=== PATIENT | male | born 1990 | race Caucasian/White ===

== ENCOUNTER 2020-08-26 17:52 | Outpatient (REF) | payer MEDICAID, SELFPAY | END 2020-08-26 17:53 | disposition home or self-care (01) | LOC: HO.LAB 17:52 | PROVIDERS: Visit Provider Internal Medicine | DX: Z20.828 Contact with and (suspected) exposure to other viral communicable diseases (principal) | CPT/HCPCS: U0003 ==

== ENCOUNTER 2020-11-25 11:24 | Outpatient (REF) | payer MEDICAID, SELFPAY | END 2020-11-25 11:25 | disposition home or self-care (01) | LOC: HO.LAB 11:24 | PROVIDERS: Visit Provider Internal Medicine | DX: Z20.822 Contact with and (suspected) exposure to COVID-19 (principal) | CPT/HCPCS: 36415; C9803; U0003; U0005 ==

== ENCOUNTER 2021-03-05 10:29 | Emergency (ER) | payer MEDICAID, SELFPAY ==
--- NOTE | ~2021-03-05 | US_ITS ---
EXAMINATION: US VENOUS ULTRASOUND WITH DOPPLER LOWER EXTREMITY, RIGHT CLINICAL INFORMATION: Pain COMPARISON: None TECHNIQUE: Ultrasound of the deep veins is performed from the hip to the calf with compression sonography and color and pulse Doppler assessment. Spectral analysis with color-flow imaging is performed. FINDINGS: There is normal venous compression and respiratory variation and augmented flow. The visualized common femoral vein, superficial femoral vein, profunda femoral vein, popliteal vein, and the trifurcation region shows no evidence of deep venous thrombosis. There is no Morel's cyst. There is edema in the proximal calf near the wound and question small 1 cm complex fluid collection. There is right inguinal lymphadenopathy. US/US venous duplex LE RT IMPRESSION: No DVT demonstrated in the right lower extremity. Edema in the calf near the patient's wound and question small 1 cm complex fluid collection.
--- NOTE | ~2021-03-05 | XR_ITS ---
EXAMINATION: RIGHT TIBIA AND FIBULA AND RIGHT FOOT CLINICAL INFORMATION: Leg drained abscess. Question osteomyelitis. COMPARISON: None TECHNIQUE: Right tibia and fibula 2 views. Right foot 3 views. FINDINGS: RIGHT TIBIA AND FIBULA: There is no visible bony abnormality. No periosteal thickening and elevation. No soft tissue ulceration or gas seen. RIGHT FOOT: There is no visible acute fracture, dislocation or subluxation seen. No bony erosive changes. No periosteal thickening. No soft tissue gas visualized. The ankle mortise and subtalar joints are normal. XR/XR foot RT 2V IMPRESSION: Unremarkable right tibia and fibula. Unremarkable right foot exam. There is no bony erosive changes or periosteal thickening to suspect osteomyelitis.
--- NOTE | ~2021-03-05 | XR_ITS ---
EXAMINATION: RIGHT TIBIA AND FIBULA AND RIGHT FOOT CLINICAL INFORMATION: Leg drained abscess. Question osteomyelitis. COMPARISON: None TECHNIQUE: Right tibia and fibula 2 views. Right foot 3 views. FINDINGS: RIGHT TIBIA AND FIBULA: There is no visible bony abnormality. No periosteal thickening and elevation. No soft tissue ulceration or gas seen. RIGHT FOOT: There is no visible acute fracture, dislocation or subluxation seen. No bony erosive changes. No periosteal thickening. No soft tissue gas visualized. The ankle mortise and subtalar joints are normal. XR/XR tibia fibula RT 2V IMPRESSION: Unremarkable right tibia and fibula. Unremarkable right foot exam. There is no bony erosive changes or periosteal thickening to suspect osteomyelitis.
[2021-03-05 12:03] VITALS: BP 125/70; PULSE 89; RESP 16; TEMP 36.7; O2SAT 98; BMI 20.8
[2021-03-05 14:31] VITALS: BP 127/84; PULSE 197; RESP 16; O2SAT 86
--- NOTE | 2021-03-05 14:37 | ED_ITS ---
HPI - Wound/Laceration General Chief Complaint: Wound/Laceration Stated Complaint: rt leg pain Time Seen by Provider: 03/05/21 13:19 Source: patient Mode of arrival: ambulatory Limitations: no limitations History of Present Illness HPI narrative: Patient to be evaluated right leg wound. Patient states he had placed a needle into right leg which cause abscess and yesterday abscess popped open and drain on his own. Patient came to the ED to be evaluated. Patient states he has small hole on bottom of right foot and thinks bugs are coming out of it. Related Data Previous Rx's Medication Instructions Recorded cephalexin 500 mg PO QID #28 cap 03/05/21 doxycycline hyclate 100 mg PO BID #14 cap 03/05/21 Allergies Allergy/AdvReac Type Severity Reaction Status Date / Time No Known Allergies Allergy Unverified 06/13/20 18:12 [No Known Allergies*] Review of Systems Review of Systems: Yes all other systems are reviewed and are negative Constitutional: Constitutional: Reports as per HPI and Reports no additional constitutional complaints Eyes: Eyes: Reports as per HPI and Reports no additional eye complaints ENT: Reports system reviewed and no additional complaints, except as documented and Reports as per HPI Cardiovascular: Cardiovascular: Reports as per HPI and Reports no additional cardiovascular complaints Respiratory: Respiratory: Reports as per HPI and Reports no additional respiratory complaints Gastrointestinal: Gastrointestinal: Reports as per HPI and Reports no additional gastrointestinal complaints Genitourinary: Genitourinary: Reports no additional male genitourinary complaints and Reports as per HPI Musculoskeletal: Musculoskeletal: Reports no additional musculoskeletal complaints and Reports as per HPI Comments: Right leg wound Neurologic: Reports system reviewed and no additional complaints, except as documented and Reports as per HPI Psychiatric: Psychiatric: Reports no additional psychiatric complaints and Reports as per HPI [facility] Past Medical History Medical History (Updated 03/05/21 @ 17:33 by KRISTEL Amador) No known health problems Surgical History (Updated 03/05/21 @ 12:10 by Jordyn Maciel) No history of previous surgery Social History Social History Advance Directives: Yes Advance Directives Information Provided: No Advance Directives on File: No Physical Exam Vital Signs: Vital Signs: Last Vital Signs Temp 99.3 F 03/05/21 16:43 Pulse 97 03/05/21 18:00 Resp 12 03/05/21 18:00 BP 141/90 H 03/05/21 18:00 Pulse Ox 96 03/05/21 18:00 Body Mass Index 20.8 Const: General: cooperative, healthy appearing, comfortable, no acute distre ss, well developed, alert, awake and Physically active Orientation/consciousness: patient oriented x3 HENMT: Head: Yes normal to inspection, Yes No palpable skull fracture present, Yes normocephalic, Yes atraumatic and No abrasion Eyes: General: appearance normal, both eyes and all related structures Neck: Neck: Yes normal visual inspection, Yes full ROM, Yes no lymphadenopathy, Yes no meningeal signs, Yes trachea midline, Yes supple and No tender Chest: Chest palpation & inspection: normal inspection of the chest and normal palpation of entire chest wall Resp: Effort & Inspection: normal respiratory effort and able to speak in complete sentences Cardio: Jugular venous distension: no JVD Heart sounds: S1 normal heart sound present and S2 normal heart sound present GI: Inspection: Yes normal to inspection and No abdominal wall ecchymosis Palpation (GI): Soft to palpation, not firm, nontender and no guarding : General: No CVA tenderness Back/Spine/Pelvis: Back: no CVA tenderness, No CVA tenderness and No back tenderness Skin: General skin exam: no rashes or lesions noted and elasticity normal Neuro: General: patient oriented x3, gait normal, no meningeal signs and CN's II-XI intact bilaterally Extrem: Other: Bottom of right foot positive for only 2/3 with small abrasion negative for bugs are maggots. Right leg area of erythema with opening is no active draining pus. Patient states he puts all the pus out yesterday. Psych: Appearance: grossly normal, well kempt and not disheveled Course Course Course Narrative: Abscess around the drain. Right foot positive for only ab rasion and negative for maggots coming out. No labs indicated. Vital signs stable. Will just do ultrasound and x-ray to evaluate for blood clot, foreign body, osteomyelitis. Reevaluation(s) Reevaluation #1: Ultrasound negative for blood clots. X-ray negative for osteomyelitis. Abscess already drained. Patient is safe for discharge. Patient discharged with antibiotics Time: 17:31 MDM - Wound/Laceration MDM Narrative Medical decision making narrative: Abscess Discharge Plan Discharge Clinical Impression: Abscess Patient Disposition: Home, Self-Care Instructions: Abscess (ED) Additional Instructions: Return to the ED immediately for leg swelling, increased redness, foul odor, severe pus drainage, fever, chills, chest pain, shortness of breath, or any other concerning symptoms. Please follow-up with the PCP. Prescriptions: New cephalexin 500 mg capsule 500 mg PO QID Qty: 28 RF: 0 doxycycline hyclate 100 mg capsule 100 mg PO BID Qty: 14 RF: 0 Interventions: ED Discharge Assessment Last Done: 03/05/21 18:12 Discharge Date/Time: 03/05/21 18:16 Print Language: Mohawk
[2021-03-05 14:57] VITALS: BP 123/76; PULSE 85; RESP 18; O2SAT 100
[2021-03-05 16:43] VITALS: BP 127/66; PULSE 74; RESP 16; TEMP 37.4; O2SAT 99
[2021-03-05 18:00] VITALS: BP 141/90; PULSE 97; RESP 12; O2SAT 96
== END 2021-03-05 18:16 | disposition home or self-care (01) ==
PROVIDERS: Emergency Provider Emergency Medicine
DX: L02.611 Cutaneous abscess of right foot (principal); M79.604 Pain in right leg
CPT/HCPCS: 73590; 73620; 93971; 99284

== ENCOUNTER 2022-02-23 23:38 | Emergency (ER) | payer MEDICAID, SELFPAY ==
[2022-02-23 23:50] VITALS: BP 114/65; BP 122/74; PULSE 77; RESP 14; TEMP 36.8; O2SAT 96; O2SAT 99; BMI 23.0
--- NOTE | 2022-02-24 00:12 | ED.GENADULT ---
HPI - General Adult General Chief complaint: ETOH/Substance Use Stated complaint: etoh Time Seen by Provider: 02/24/22 00:10 Source: patient and EMS Mode of arrival: EMS History of Present Illness HPI narrative: 31-year-old male with history of polysubstance use and used intranasal heroin this evening and then became paranoid and showed up at the police station stating that the heroin ?was laced? and police Department called an ambulance for the patient. Patient is groggy, and is asking for something to drink but otherwise denies any shortness of breath, chest pain/palpitations. Related Data Previous Rx's Medication Instructions Recorded cephalexin 500 mg capsule 500 mg PO QID #28 cap 03/05/21 doxycycline hyclate 100 mg capsule 100 mg PO BID #14 cap 03/05/21 Allergies Allergy/AdvReac Type Severity Reaction Status Date / Time No Known Allergies Allergy Unverified 06/13/20 18:12 [No Known Allergies*] Review of Systems Review of Systems: Pertinent positives and negatives as stated in HPI 10 point review of systems is otherwise negative. PMFSH Past Medical History Source: nursing notes reviewed Medical History No known health problems Surgical History No history of previous surgery Social History Social History Advance Directives: No Advance Directives Information Provided: Yes Physical Exam ED Vital Signs: Vital Signs - 24 hr 02/23/22 23:50 02/24/22 03:06 Temperature 98.3 F Pulse Rate 77 Respiratory Rate 14 18 Blood Pressure 114/65 Pulse Oximetry 99 95 BMI result Body Mass Index 23.0 VITAL SIGNS: Reviewed. GENERAL: Well developed, well nourished, in no acute distress. HEAD: Normocephalic/atraumatic EYES: PERRLA, EOMI EARS: Ext canals without abnormality OROPHARYNX: no oral lesions noted, posterior pharynx clear LUNGS: Normal breath sounds. No adventitious sounds or accessory muscle use. SpO2<99> CARDIOVASCULAR: Regular rate and rhythm without noted murmurs ABDOMEN: Soft, non-tender, non-distended with bowel sounds. MUSCULOSKELETAL: No tenderness, deformities, or effusions noted on gross inspection EXTREMITIES: No cyanosis, clubbing or edema. SKIN: Inspection of the skin reveals no rashes, ulcerations, jaundice, pallor, or petechiae. NEUROLOGIC: Groggy but arousable and oriented x 3. Strength and sensation to light touch were grossly intact x 4. Course Course Course Narrative: 31-year-old male with history and clinical presentation ongoing polysubstance use and is brought in by EMS after having used intranasal heroin. He is currently drowsy but otherwise hemodynamically stable. Review of all investigations without acute findings other than obvious positivity on urine toxicology, we did end up giving 4 mg of Narcan with good results, patient is noted to have mild hypokalemia and will receive 60 mEq of potassium chloride prior to discharge. Patient was offered detox, but declines at this time. Reevaluation(s) Reevaluation #1: Patient placed in physician observation because the patient needed more time to sober up. At the time observation was started the patient's vital signs were stable, patient is drowsy but arousable and oriented but slightly agitated, neuro: Nonfocal, CV RRR, lungs clear Time: 03:52 Medical Decision Making Lab Data Result diagrams: 02/24/22 03:01 02/24/22 03:01 Labs: Lab Results 02/24/22 02/24/22 02/24/22 Range/Units 03:01 03:01 03:01 WBC 6.2 (4.8-10.8) X10*3/uL RBC 4.75 (4.60-5.80) X10*6/uL Hgb 13.3 L (14.0-18.0) g/dl Hct 37.8 L (42.0-52.0) % MCV 79.6 L (80.0-98.0) fL MCH 28.0 (27.0-33.0) pg MCHC 35.2 (31.0-36.0) g/dl RDW 12.4 (11.0-16.0) % Plt Count 229 (160-400) X10*3/uL MPV 10.0 (9.4-12.4) fL Immature Gran % (Auto) 0.2 (0.0-0.4) % Neut % (Auto) 60.4 (45-73) % Lymph % (Auto) 27.1 (20-40) % [place] % (Auto) 11.5 H (2-11) % Eos % (Auto) 0.6 (0-4) % Baso % (Auto) 0.2 (0-2) % Lymph # (Auto) 1.7 (1.2-4.9) X10*3/uL [place] # (Auto) 0.7 (0.1-1.2) X10*3/uL Eos # (Auto) 0.0 (0.0-0.4) X10*3/uL Baso # (Auto) 0.0 (0.0-0.2) X10*3/uL Abs Immat Gran (auto) 0.01 (0.00-0.03) X10*3/uL Absolute Neuts (auto) 3.7 (2.0-8.3) x10*3/uL Absolute Nucleated RBC 0.000 (0.0-0.012) X10*3/uL Nucleated RBC % (auto) 0.0 (0.0-0.2) /100WBC Sodium 141 (135-145) mmol/L Potassium 3.0 L (3.3-5.1) mmol/L Chloride 106 (96-108) mmol/L Carbon Dioxide 25 (22-29) mmol/L Anion Gap 13 (12-20) BUN 11 (9-16) mg/dL Creatinine 0.76 (0.5-1.4) mg/dL Estim Creat Clear Calc 150.4 Estimated GFR > 60 Random Glucose 113 (60-115) mg/dL Calcium 9.5 (8.4-10.2) mg/dL Total Bilirubin 1.1 H (0.0-1.0) mg/dL AST 37 (5-37) U/L ALT 53 H (0-40) U/L Alkaline Phosphatase 101 (39-117) U/L Total Protein 7.3 (6.5-8.0) g/dL Albumin 4.1 (3.5-5.0) g/dL Urine Opiates Screen (Not Detect) Urine Fentanyl Screen (Not Detect) Ur Barbiturates Screen (Not Detect) Ur Phencyclidine Scrn (Not Detect) Ur Amphetamines Screen (Not Detect) U Benzodiazepines Scrn (Not Detect) Urine Cocaine Screen (Not Detect) U Marijuana (THC) Screen (Not Detect) Ethyl Alcohol < 10 mg/dL 02/24/22 Range/Units 03:01 WBC (4.8-10.8) X10*3/uL RBC (4.60-5.80) X10*6/uL Hgb (14.0-18.0) g/dl Hct (42.0-52.0) % MCV (80.0-98.0) fL MCH (27.0-33.0) pg MCHC (31.0-36.0) g/dl RDW (11.0-16.0) % Plt Count (160-400) X10*3/uL MPV (9.4-12.4) fL Immature Gran % (Auto) (0.0-0.4) % Neut % (Auto) (45-73) % Lymph % (Auto) (20-40) % [place] % (Auto) (2-11) % Eos % (Auto) (0-4) % Baso % (Auto) (0-2) % Lymph # (Auto) (1.2-4.9) X10*3/uL [place] # (Auto) (0.1-1.2) X10*3/uL Eos # (Auto) (0.0-0.4) X10*3/uL Baso # (Auto) (0.0-0.2) X10*3/uL Abs Immat Gran (auto) (0.00-0.03) X10*3/uL Absolute Neuts (auto) (2.0-8.3) x10*3/uL Absolute Nucleated RBC (0.0-0.012) X10*3/uL Nucleated RBC % (auto) (0.0-0.2) /100WBC Sodium (135-145) mmol/L Potassium (3.3-5.1) mmol/L Chloride (96-108) mmol/L Carbon Dioxide (22-29) mmol/L Anion Gap (12-20) BUN (9-16) mg/dL Creatinine (0.5-1.4) mg/dL Estim Creat Clear Calc Estimated GFR Random Glucose (60-115) mg/dL Calcium (8.4-10.2) mg/dL Total Bilirubin (0.0-1.0) mg/dL AST (5-37) U/L ALT (0-40) U/L Alkaline Phosphatase (39-117) U/L Total Protein (6.5-8.0) g/dL Albumin (3.5-5.0) g/dL Urine Opiates Screen POSITIVE H (Not Detect) Urine Fentanyl Screen POSITIVE H (Not Detect) Ur Barbiturates Screen Not Detected (Not Detect) Ur Phencyclidine Scrn Not Detected (Not Detect) Ur Amphetamines Screen Not Detected (Not Detect) U Benzodiazepines Scrn Not Detected (Not Detect) Urine Cocaine Screen POSITIVE H (Not Detect) U Marijuana (THC) Screen Not Detected (Not Detect) Ethyl Alcohol mg/dL Discharge Plan Discharge Clinical Impression: Polysubstance dependence including opioid drug with daily use Patient Disposition: Still a Patient Prescriptions: No Action cephalexin 500 mg capsule 500 mg PO QID Qty: 28 0RF doxycycline hyclate 100 mg capsule 100 mg PO BID Qty: 14 0RF
[2022-02-24] MEDS: Naloxone HCl Nasal 4 MG SPRAY NOSTRILALT (01:26)
--- NOTE | 2022-02-24 01:27 | PC.NURSE ---
Narcan administered per request Dr. umana. Narcan is not able to be scanned into MAR. tie maker aware.
[2022-02-24 03:06] VITALS: RESP 18; O2SAT 95
[2022-02-24 03:07] LABS: MANUAL DIFF FLAG NO
[2022-02-24 03:08] LABS: Basophils Percent Auto 0.2 % (0-2); Eosinophils Percent Auto 0.6 % (0-4); Hematocrit 37.8 % (42.0-52.0); Hemoglobin 13.3 g/dl (14.0-18.0); Imm Gran Abs Auto 0.01 X10*3/uL (0.00-0.03); Imm Gran Pct Auto 0.2 % (0.0-0.4); Lymphocytes Absolute Auto 1.7 X10*3/uL (1.2-4.9); Lymphocytes Percent Auto 27.1 % (20-40); Mean Corpuscular HGB Conc 35.2 g/dl (31.0-36.0); Mean Corpuscular Volume 79.6 fL (80.0-98.0); Monocytes Absolute Auto 0.7 X10*3/uL (0.1-1.2); Monocytes Percent Auto 11.5 % (2-11); Neutrophils Absolute Auto 3.7 x10*3/uL (2.0-8.3); Neutrophils Percent Auto 60.4 % (45-73); Platelet Count 229 X10*3/uL (160-400); Red Blood Count 4.75 X10*6/uL (4.60-5.80); Red Cell Distribution Width 12.4 % (11.0-16.0); White Blood Count 6.2 X10*3/uL (4.8-10.8)
[2022-02-24 03:27] LABS: Ethanol < 10 mg/dL
[2022-02-24 03:28] LABS: Amphetamine Screen Urine Not Detected (Not Detect); Barbiturates, Urine Not Detected (Not Detect); Benzodiazepines Screen Urine Not Detected (Not Detect); Cannabinoid Screen Urine Not Detected (Not Detect); Cocaine Screen Urine POSITIVE (Not Detect); Fentanyl, urine POSITIVE (Not Detect); Opiate Screen Urine POSITIVE (Not Detect); Phencyclidine Screen Urine Not Detected (Not Detect)
[2022-02-24 03:29] LABS: Alanine Aminotransferase 53 U/L (0-40); Albumin Level 4.1 g/dL (3.5-5.0); Alkaline Phosphatase 101 U/L (39-117); Anion Gap 13 (12-20); Aspartate Amino Transferase 37 U/L (5-37); Bilirubin Total 1.1 mg/dL (0.0-1.0); Blood Urea Nitrogen 11 mg/dL (9-16); Calcium 9.5 mg/dL (8.4-10.2); Carbon Dioxide 25 mmol/L (22-29); Chloride 106 mmol/L (96-108); Creatinine Clr Calc Pharmacy 150.4; Estimated Glomerular Filt Rate > 60; Glucose Random 113 mg/dL (60-115); Sodium 141 mmol/L (135-145); Total Protein 7.3 g/dL (6.5-8.0)
[2022-02-24 04:13] VITALS: RESP 18; O2SAT 96
--- NOTE | 2022-02-24 07:50 | PC.NURSE ---
pt continuos on sleeping, respirations even and unlabored.
[2022-02-24 08:52] VITALS: BP 103/51; PULSE 50; RESP 14; O2SAT 97
--- NOTE | 2022-02-24 10:03 | PC.NURSE ---
attempted to wake the pt, pt does wake up briefly and will mumble few answers, did say he was not having any pain then right back to sleep
[2022-02-24 11:36] VITALS: BP 115/65; PULSE 70; RESP 18; O2SAT 97
--- NOTE | 2022-02-24 11:36 | PC.NURSE ---
Addendum entered by Lucero Joiner 02/24/22 11:39: pt given the suboxone clinic card and instructed to go to the walk in clinic Original Note: pt finally awake, pt states that he feels like he is starting to withdraw from heroin, that he feels jittery no visible signs of withdraw at this time, vs stable, no vomiting no tremors or perspirations
[2022-02-24] MEDS: Potassium Chloride ER 20 MEQ TAB.ER.PRT 60 MEQ PO (11:43)
[2022-02-24] MEDS: Naloxone HCl Nasal TAKE HOME 4 MG SPRAY NOSTRILALT (11:44)
== END 2022-02-24 11:47 | disposition home or self-care (01) ==
PROVIDERS: Emergency Provider Student in an Organized Health Care Education/Training Program
DX: F11.23 Opioid dependence with withdrawal (principal); R40.2410 Glasgow coma scale score 13-15, unspecified time; Z79.899 Other long term (current) drug therapy
CPT/HCPCS: 36415; 51798; 80053; 80307; 82077; 85025; 99284

== ENCOUNTER 2022-05-09 01:00 | Inpatient (IN) | payer MEDICAID, SELFPAY ==
[2022-05-09] VITALS (12 sets, daily range): BP systolic 104–129; BP diastolic 50–83; PULSE 64–110; RESP 15–36; TEMP 36.8–39.1; O2SAT 95–99; BMI 21.5
--- NOTE | ~2022-05-09 | XR_ITS ---
EXAMINATION: XR CHEST CLINICAL INFORMATION: Abnormal breath sounds right base. Pneumonia follow-up COMPARISON: Prior chest radiograph 05/09/2022 TECHNIQUE: Frontal view of the chest was obtained. FINDINGS: Right basilar infiltrate and effusion stable. Left lung remains clear. Heart size borderline with normal caliber pulmonary vessels. Left-sided IJ line stable in position. XR/XR chest 1V IMPRESSION: No significant change.
--- NOTE | ~2022-05-09 | CT_ITS ---
PROCEDURE: CT GUIDED INSERTION, PLEURAL TUNNEL CATHETER CLINICAL INFORMATION: Chest tube placement. COMPARISON: None TECHNIQUE: Following explaining CT fluoroscopy-guided right thoracentesis and if needed a chest tube catheter placement procedure, benefits and risks, a written consent obtained for the procedure and conscious sedation. Patient was placed in right lateral decubitus view on the CT table and preliminary CT imaging was obtained. Markers were placed along the right posterior chest along the right lower hemithorax and repeat CT imaging was obtained. An optimal site was selected and marked. The area was cleaned and draped in usual sterile manner with 2% chlorhexidine solution. 1% lidocaine was administered at puncture site. Through a small skin incision a 5 [place] Yueh catheter was advanced into the right pleural space. After observing thin, nonpurulent, yellowish fluid decision to insert a catheter was made. A thin 0.035 J-wire was inserted through the 5 [place] Yueh catheter following removal of the stylet. Yueh catheter was removed and an 8.5 [place] APD catheter with a stiffener was advanced over the guidewire and placed in the right pleural effusion. Images were obtained confirming position of catheter. The stiffener and the guidewire was removed and pigtail was formed by pulling the thread. The catheter was then attached to a suction bottle. Only 20 mL fluid was aspirated. The catheter was subsequently connected to waterseal chamber which was connected to -20 cm of wall suction. The catheter was anchored to the skin with sterile dressing. Conscious sedation was administered for 27 minutes and patient was monitored by the IR nurse and IR radiologist. This CT examination was performed using dose optimization techniques as appropriate, variously including the following: *Automated exposure control *Adjustment of mA and/or kV according to patient size (this includes techniques or standardized protocols for targeted exams where dose is matched to indication/reason for exam; i.e. extremities or head) *Use of iterative reconstruction technique DLP: 275 mGy-cm FINDINGS: On previous CT imaging there is a loculated right pleural effusion. Approximately 20 mL of fluid was collected and sent to lab as requested. 8.5 [place] APD catheter was inserted and connected to waterseal chamber which was then connected to -20 cm of wall suction. CT/CT chest tube placement IMPRESSION: Successful CT fluoroscopy-guided right chest catheter insertion. Results were called by phone to Dr. Cosme and made aware of this situation and that the patient may need TPA. Also thoracic surgical consult will be required with the bigger chest tube for better chest drainage and if required decortication.
--- NOTE | ~2022-05-09 | CT_ITS ---
EXAMINATION: CT CHEST WITHOUT CONTRAST CLINICAL INFORMATION: Loculated right pleural effusion post tPA COMPARISON: Previous chest x-ray most recent from yesterday and chest CT 05/12/2022 TECHNIQUE: Multidetector volumetric CT imaging of the chest was done. Axial MIP volume rendering provided. Sagittal and coronal reformatted images were obtained. This CT examination was performed using dose optimization techniques as appropriate, variously including the following: *Automated exposure control *Adjustment of mA and/or kV according to patient size (this includes techniques or standardized protocols for targeted exams where dose is matched to indication/reason for exam; i.e. extremities or head) *Use of iterative reconstruction technique DLP: 200 mGy-cm FINDINGS: WORKGROUP LEADER: Right base chest tube LUNGS: There is residual airspace disease in the right lower lobe with air bronchograms probably representing pneumonia. MEDIASTINUM: There is shotty mediastinal lymphadenopathy that is stable. The heart is upper normal in size. No pericardial effusion. Left jugular central line with tip projecting over the SVC. PLEURA: There is a interval decrease in size in the now small loculated right pleural effusion. There is a small focal collection adjacent to the medial right middle lobe measuring 1 x 2 cm there is decreased in size from previous exam. There is a new pigtail chest tube in the posterior right costophrenic angle. There is a small amount of residual fluid and air or a small hydropneumothorax suggestive of a partially trapped right lower lobe. There is no left pleural effusion. AXILLA: Shotty bilateral axillary lymphadenopathy. No chest wall mass. UPPER ABDOMEN: Not completely imaged but question of hepatosplenomegaly. OSSEOUS STRUCTURES: Unremarkable. CT/CT chest wo con IMPRESSION: Interval decrease in the now small right loculated pleural effusion. Pigtail chest tube in the right posterior costophrenic sulcus. Small amount of residual fluid and air in this region or hydropneumothorax suggestive of a partially trapped right lower lobe. Airspace disease in the right lower lobes probably representing pneumonia. Fleischner guidelines were followed.
--- NOTE | ~2022-05-09 | XR_ITS ---
EXAMINATION: XR CHEST CLINICAL INFORMATION: Right pleural effusion COMPARISON: 05/18/2022 TECHNIQUE: Frontal view of the chest was obtained. FINDINGS: Left IJ central line tip lies in the region of the distal SVC. Redemonstrated right basilar pigtail catheter. Redemonstrated region of right basilar opacity and small pleural effusion, similar to prior. Associated pneumothorax component at the right base is not as well demonstrated as on recent CT. Mild streaky left basilar opacity is also noted suggesting mild atelectasis. The cardiomediastinal silhouette is stable. No acute osseous findings are seen. XR/XR chest 1V IMPRESSION: Persistent right basilar opacity and small pleural effusion, similar to prior. Pneumothorax component at the right base is not as well demonstrated as on recent CT.
--- NOTE | ~2022-05-09 | XR_ITS ---
EXAMINATION: XR CHEST CLINICAL INFORMATION: Follow-up right pleural effusion COMPARISON: 05/16/2022 TECHNIQUE: Frontal view of the chest was obtained. FINDINGS: There is left internal jugular central venous catheter with the tip over the cardiac atrial junction unchanged in position. There is pigtail catheter seen over the right flank. Cardiomediastinal silhouette is mildly prominent. Atelectasis at the right lung base. There is no interval change XR/XR chest 1V IMPRESSION: No interval change
--- NOTE | ~2022-05-09 | XR_ITS ---
EXAMINATION: XR CHEST CLINICAL INFORMATION: Rib pain. IV drug use. COMPARISON: None TECHNIQUE: Frontal view of the chest was obtained. FINDINGS: Lung volumes are low. Small right pleural effusion. Right basilar airspace opacity. No pneumothorax. The cardiomediastinal silhouette is within normal limits. XR/XR chest 1V IMPRESSION: Small right pleural effusion. Airspace opacity could be atelectasis or pneumonia.
--- NOTE | ~2022-05-09 | XR_ITS ---
EXAMINATION: XR CHEST CLINICAL INFORMATION: Port placement. COMPARISON: Portable chest x-ray 05/09/2022, 2:52 AM TECHNIQUE: Frontal view of the chest was obtained. 9:49 PM FINDINGS: Right IJ catheter tip at the caval atrial junction in superior vena cava. No pneumothorax. Continued dense right lung base due to pleural effusion and basilar consolidation/atelectasis similar prior chest x-ray today. Left lung normally aerated. XR/XR chest 1V IMPRESSION: 1.Right IJ catheter tip at the caval atrial junction in superior vena cava. No pneumothorax. 2. Persistent dense right lung base with right pleural effusion.
--- NOTE | ~2022-05-09 | XR_ITS ---
EXAMINATION: XR CHEST CLINICAL INFORMATION: Right pleural effusion COMPARISON: 05/19/2022 TECHNIQUE: Frontal view of the chest was obtained. FINDINGS: Small right pleural effusion and associated right base atelectasis again seen. No new focal consolidation. Pigtail pleural drainage catheter in the right posterior costophrenic sulcus is again seen. No pneumothorax visible by chest x-ray. Left internal jugular approach central venous catheter with tip in the proximal right atrium. XR/XR chest 1V IMPRESSION: No significant change from prior study.
--- NOTE | ~2022-05-09 | XR_ITS ---
EXAMINATION: XR CHEST CLINICAL INFORMATION: Status post chest tube clamping. COMPARISON: Chest radiograph 05/12/2022. TECHNIQUE: Frontal view of the chest was obtained. FINDINGS: Left IJ CVC terminating at the level of the cavoatrial junction. Unchanged cardiomediastinal silhouette. Pigtail chest tube catheter projecting over the right lower lobe. No significant change in the right basilar airspace opacities and right pleural effusion. Clear left lung. No pneumothorax. No acute osseous abnormalities. XR/XR chest 1V IMPRESSION: Aside from placement of a right-sided chest tube, the examination is not significantly changed when compared to 05/12/2022 with overall stable right-sided pleural effusion and right basilar opacities.
--- NOTE | ~2022-05-09 | CT_ITS ---
EXAMINATION: CT CHEST WITHOUT CONTRAST CLINICAL INFORMATION: SOB with effusion. COMPARISON: Chest x-ray 05/12/2022 TECHNIQUE: Multidetector volumetric CT imaging of the chest was done. Axial MIP volume rendering provided. Sagittal and coronal reformatted images were obtained. This CT examination was performed using dose optimization techniques as appropriate, variously including the following: *Automated exposure control *Adjustment of mA and/or kV according to patient size (this includes techniques or standardized protocols for targeted exams where dose is matched to indication/reason for exam; i.e. extremities or head) *Use of iterative reconstruction technique DLP: 210 mGy-cm FINDINGS: [employer]: Expanded lungs with diffuse hypodensity in right lower lobe LUNGS: There is right lower lobe compressive atelectasis/consolidation with small to moderate loculated right pleural effusion. There are air bronchograms present in the right lower lobe consolidation. There is a 5 mm nodule right upper lobe. No additional nodule, mass or consolidation seen. There is minimal compressive atelectasis in left lung base from a small pleural effusion. MEDIASTINUM: Heart size and the great vessels are normal caliber. There is left central venous catheter with its tip in mid SVC. No pericardial effusion seen. The central trachea and bronchi are widely patent. PLEURA: There is moderate right and small left pleural effusion. AXILLA: There is bilateral small Lymph nodes largest lymph node measuring 9 mm short axis. UPPER ABDOMEN: Visualized liver, spleen, pancreas and bilateral adrenal glands unremarkable. OSSEOUS STRUCTURES: Unremarkable. CT/CT chest wo con IMPRESSION: Right lower lobe consolidation/atelectasis with loculated pleural effusion and posterior lung base. Small left pleural effusion with minimal compressive left basilar atelectasis. A diagnostic right thoracentesis can be performed. Fleischner guidelines were followed.
--- NOTE | 2022-05-09 02:08 | ED_ITS ---
HPI - General Adult General Chief complaint: General Medical Stated complaint: lower leg swelling Time Seen by Provider: 05/09/22 01:30 Source: patient Mode of arrival: ambulatory Limitations: no limitations History of Present Illness HPI narrative: Patient comes to the emergency room complaining of right-sided chest pain, lower extremity pain. Patient is awake, very somnolent, admits to using drugs prior to arrival. Patient states that he thinks he has been has been having fever for several days. Related Data Previous Rx's Medication Instructions Recorded cephalexin 500 mg capsule 500 mg PO QID abscess #28 caps 03/05/21 doxycycline hyclate 100 mg capsule 100 mg PO BID abscess #14 caps 03/05/21 Allergies Allergy/AdvReac Type Severity Reaction Status Date / Time No Known Allergies Allergy Verified 05/09/22 01:10 [No Known Allergies*] Review of Systems Review of Systems: Constitutional : No Weight loss, complaining of fever and chills, fatigue and generalized malaise ENT/Mouth : No Hearing loss, No Ear Pain, No Nasal Congestion, No Sinus Pain, No Hoarseness, No sore throat, No Rhinorrhea, No Swallowing Difficulty Eyes: No Eye Pain, No Swelling, No Redness, No Foreign Body, No Discharge, No Vision Changes Cardiovascular : Complaining of bilateral rib pain, worse with coughing, No Chest Pain, No SOB, No Dyspnea on Exertion, No Orthopnea, No Edema, No Palpitations Respiratory : Complaining of Cough, No Sputum, No Wheezing, No Smoke Exposure, No Dyspnea Gastrointestinal : No Nausea, No Vomiting, No Diarrhea, No Constipation, No abdominal Pain, No Hematochezia, No Melena Genitourinary : no irregular bleeding, No Dysuria, No Urinary Frequency, No Hematuria, No Urinary Incontinence, No Urgency, No Flank Pain, No Urinary Flow Changes, No Hesitancy Musculoskeletal : No joint pain, No Myalgias, No Joint Swelling Skin : Complaining of redness in both lower extremities Neuro : No Weakness, No Numbness, No Paresthesias, No Loss of Consciousness, No Dizziness, No Headache Psych : No Anxiety/Panic, No Depression, No SI/HI/AH/VH, No Social Issues, Heme/Lymph: No Bruising, No Bleeding,No Lymphadenopathy Endocrine : No Polyuria, No Polydipsia, No Temperature Intolerance [facility] Past Medical History Medical History Polysubstance abuse Surgical History No history of previous surgery Social History Social History Advance Directives: No Advance Directives Information Provided: Yes Physical Exam ED Vital Signs: Vital Signs - 24 hr 05/09/22 01:11 05/09/22 02:04 05/09/22 03:34 Temperature 98.4 F 100.8 F H Pulse Rate 104 H 93 98 Respiratory Rate 16 18 36 H Blood Pressure 120/73 115/56 L 129/70 Pulse Oximetry 96 96 97 Oxygen Delivery Method Room Air Room Air Room Air BMI result Body Mass Index 21.5 Const Other: Appearance: Alert. Somnolent but easily arousable, Oriented X3. No acute distress. Eyes: Pinpoint pupils, Pupils equal, round and reactive to light. ENT: Pharynx normal. Neck: Normal inspection. Neck supple. No lymph nodes noted. No crepitus CVS: Normal heart rate and rhythm. Pulses normal. Normal S1 and S2, left sternal systolic murmur +2 (new?) Respiratory: No respiratory distress. Breath sounds normal. No Wheezing. No rales Abdomen: Soft and nontender. No rigidity. No distention. Skin: Skin warm and dry. See extremities below Extremities: +1 pitting edema bilaterally, cellulitis from ankles to above the knee bilaterally, multiple needle track hebert in upper and lower extremities Neuro: Oriented X 3. No motor deficit. No sensory deficit. Moving all extremities. No slurred speech. CN 2 through 12 grossly intact Psych: calm, cooperative, somnolent Course Course Course Narrative: Reviewing patient's previous notes, seems that he has not been diagnosed with a murmur in the past. Patient states that he has never heard that he has a murmur which she does today. Patient has a fever, new murmur, likely endocarditis. All of patient's labs and imaging pending. Patient is being given IV fluids, vancomycin and Zosyn. I discussed the patient with Dr. Mittal, pt being admitted for pneumonia, pleural effusion, bilateral leg cellulitis and possible endocarditis Medical Decision Making Lab Data Result diagrams: 05/09/22 03:26 05/09/22 03:26 Labs: Lab Results 05/09/22 05/09/22 05/09/22 Range/Units 02:59 03:26 03:26 WBC 21.3 H (4.8-10.8) X10*3/uL RBC 4.27 L (4.60-5.80) X10*6/uL Hgb 12.0 L (14.0-18.0) g/dl Hct 35.2 L (42.0-52.0) % MCV 82.4 (80.0-98.0) fL MCH 28.1 (27.0-33.0) pg MCHC 34.1 (31.0-36.0) g/dl RDW 12.0 (11.0-16.0) % Plt Count 471 H D (160-400) X10*3/uL MPV 9.3 L (9.4-12.4) fL Immature Gran % (Auto) 3.5 H (0.0-0.4) % Neut % (Auto) 80.4 H (45-73) % Lymph % (Auto) 8.6 L (20-40) % [place] % (Auto) 7.0 (2-11) % Eos % (Auto) 0.3 (0-4) % Baso % (Auto) 0.2 (0-2) % Lymph # (Auto) 1.8 (1.2-4.9) X10*3/uL [place] # (Auto) 1.5 H (0.1-1.2) X10*3/uL Eos # (Auto) 0.1 (0.0-0.4) X10*3/uL Baso # (Auto) 0.0 (0.0-0.2) X10*3/uL Abs Immat Gran (auto) 0.74 H (0.00-0.03) X10*3/uL Absolute Neuts (auto) 17.1 H (2.0-8.3) x10*3/uL Absolute Nucleated RBC 0.000 (0.0-0.012) X10*3/uL Nucleated RBC % (auto) 0.0 (0.0-0.2) /100WBC Sodium 135 (135-145) mmol/L Potassium 3.1 L (3.3-5.1) mmol/L Chloride 94 L (96-108) mmol/L Carbon Dioxide 28 (22-29) mmol/L Anion Gap 16 (12-20) BUN 6 L (9-16) mg/dL Creatinine 0.79 (0.5-1.4) mg/dL Estim Creat Clear Calc 131.5 Estimated GFR > 60 Random Glucose 124 H (60-115) mg/dL Lactic Acid (0.5-2.0) mmol/L Calcium 8.3 L D (8.4-10.2) mg/dL Magnesium 2.2 (1.6-2.6) mg/dL Total Bilirubin 0.8 (0.0-1.0) mg/dL Direct Bilirubin 0.5 (0.0-0.5) mg/dL AST 72 H (5-37) U/L ALT 48 H (0-40) U/L Alkaline Phosphatase 110 (39-117) U/L Total Protein 7.2 (6.5-8.0) g/dL Albumin 2.9 L D (3.5-5.0) g/dL Ethyl Alcohol < 10 mg/dL COVID-19 (CARLOS) Negative (Negative) COVID-19 Clin Com See Note 05/09/22 Range/Units 03:26 WBC (4.8-10.8) X10*3/uL RBC (4.60-5.80) X10*6/uL Hgb (14.0-18.0) g/dl Hct (42.0-52.0) % MCV (80.0-98.0) fL MCH (27.0-33.0) pg MCHC (31.0-36.0) g/dl RDW (11.0-16.0) % Plt Count (160-400) X10*3/uL MPV (9.4-12.4) fL Immature Gran % (Auto) (0.0-0.4) % Neut % (Auto) (45-73) % Lymph % (Auto) (20-40) % [place] % (Auto) (2-11) % Eos % (Auto) (0-4) % Baso % (Auto) (0-2) % Lymph # (Auto) (1.2-4.9) X10*3/uL [place] # (Auto) (0.1-1.2) X10*3/uL Eos # (Auto) (0.0-0.4) X10*3/uL Baso # (Auto) (0.0-0.2) X10*3/uL Abs Immat Gran (auto) (0.00-0.03) X10*3/uL Absolute Neuts (auto) (2.0-8.3) x10*3/uL Absolute Nucleated RBC (0.0-0.012) X10*3/uL Nucleated RBC % (auto) (0.0-0.2) /100WBC Sodium (135-145) mmol/L Potassium (3.3-5.1) mmol/L Chloride (96-108) mmol/L Carbon Dioxide (22-29) mmol/L Anion Gap (12-20) BUN (9-16) mg/dL Creatinine (0.5-1.4) mg/dL Estim Creat Clear Calc Estimated GFR Random Glucose (60-115) mg/dL Lactic Acid 1.3 (0.5-2.0) mmol/L Calcium (8.4-10.2) mg/dL Magnesium (1.6-2.6) mg/dL Total Bilirubin (0.0-1.0) mg/dL Direct Bilirubin (0.0-0.5) mg/dL AST (5-37) U/L ALT (0-40) U/L Alkaline Phosphatase (39-117) U/L Total Protein (6.5-8.0) g/dL Albumin (3.5-5.0) g/dL Ethyl Alcohol mg/dL COVID-19 ([facility]) (Negative) COVID-19 Clin Com Critical Care Time Critical Care Time Critical Care Time: Yes Total Critical Care Time: 45 Attestation: I have personally provided critical care time. Time includes review of lab data, radiology results, discussion with consultants, and monitoring for potential decompensation. Intervention performed as documented. Discharge Plan Discharge Clinical Impression: Polysubstance abuse, Pneumonia, Pleural effusion, Bilateral cellulitis of lower leg, Endocarditis, suspected Patient Disposition: Admitted As Inpatient Prescriptions: No Action cephalexin 500 mg capsule 500 mg PO QID Qty: 28 0RF doxycycline hyclate 100 mg capsule 100 mg PO BID Qty: 14 0RF
[2022-05-09 03:22] LABS: COVID-19 Test Negative (Negative)
[2022-05-09 03:33] LABS: MANUAL DIFF FLAG NO
[2022-05-09 03:34] LABS: Basophils Percent Auto 0.2 % (0-2); Eosinophils Absolute Auto 0.1 X10*3/uL (0.0-0.4); Eosinophils Percent Auto 0.3 % (0-4); Hematocrit 35.2 % (42.0-52.0); Imm Gran Abs Auto 0.74 X10*3/uL (0.00-0.03); Imm Gran Pct Auto 3.5 % (0.0-0.4); Lymphocytes Absolute Auto 1.8 X10*3/uL (1.2-4.9); Lymphocytes Percent Auto 8.6 % (20-40); Mean Corpuscular HGB Conc 34.1 g/dl (31.0-36.0); Mean Corpuscular Hemoglobin 28.1 pg (27.0-33.0); Mean Corpuscular Volume 82.4 fL (80.0-98.0); Mean Platelet Volume 9.3 fL (9.4-12.4); Monocytes Absolute Auto 1.5 X10*3/uL (0.1-1.2); Neutrophils Absolute Auto 17.1 x10*3/uL (2.0-8.3); Neutrophils Percent Auto 80.4 % (45-73); Platelet Count 471 X10*3/uL (160-400); Red Blood Count 4.27 X10*6/uL (4.60-5.80); White Blood Count 21.3 X10*3/uL (4.8-10.8)
[2022-05-09 03:48] LABS: Lactic Acid 1.3 mmol/L (0.5-2.0)
[2022-05-09] MEDS: Piperacillin Sodium/Tazobactam 4.5 GM in 0.9 % Sodium Chloride 100 ML IV (03:51)
[2022-05-09] MEDS: Acetaminophen 325 MG TABLET 975 MG PO (03:51)
[2022-05-09] MEDS: 0.9 % Sodium Chloride 1,000 ML 999 ML IVCONT (03:52)
[2022-05-09 03:53] LABS: Alanine Aminotransferase 48 U/L (0-40); Albumin Level 2.9 g/dL (3.5-5.0); Alkaline Phosphatase 110 U/L (39-117); Anion Gap 16 (12-20); Aspartate Amino Transferase 72 U/L (5-37); Bilirubin Direct 0.5 mg/dL (0.0-0.5); Bilirubin Total 0.8 mg/dL (0.0-1.0); Blood Urea Nitrogen 6 mg/dL (9-16); Calcium 8.3 mg/dL (8.4-10.2); Carbon Dioxide 28 mmol/L (22-29); Chloride 94 mmol/L (96-108); Creatinine Clr Calc Pharmacy 131.5; Estimated Glomerular Filt Rate > 60; Ethanol < 10 mg/dL; Glucose Random 124 mg/dL (60-115); Magnesium 2.2 mg/dL (1.6-2.6); Potassium 3.1 mmol/L (3.3-5.1); Sodium 135 mmol/L (135-145); Total Protein 7.2 g/dL (6.5-8.0)
[2022-05-09] MEDS: vancomycin HCL 1,000 MG, vancomycin HCL 750 MG in 0.9 % Sodium Chloride 500 ML 267.5 MG IV (04:24)
[2022-05-09] MEDS: Potassium Chloride/H20 10 MEQ/100 ML PIGGYBACK 100 MEQ IV ×4 (05:50→11:41)
[2022-05-09 06:13] LABS: Appearance Urine CLEAR; Color Urine YELLOW; Glucose Urine UA NEG (NEG); Leukocyte Esterase Urine NEG (NEG); Nitrite Urine NEG (NEG); PH 6.5 (5.0-8.0); Specific Gravity - Urine <= 1.005 (1.005-1.025); Urine Blood NEG (NEG); Urine Ketones NEG (NEG); Urine Protein NEG (NEG-TRACE)
[2022-05-09 06:27] LABS: Amphetamine Screen Urine Not Detected (Not Detect); Barbiturates, Urine Not Detected (Not Detect); Benzodiazepines Screen Urine Not Detected (Not Detect); Cannabinoid Screen Urine Not Detected (Not Detect); Cocaine Screen Urine POSITIVE (Not Detect); Fentanyl, urine POSITIVE (Not Detect); Opiate Screen Urine POSITIVE (Not Detect); Phencyclidine Screen Urine Not Detected (Not Detect)
--- NOTE | 2022-05-09 08:06 | PHA.MEDREC ---
Pharmacy Consult ? Medication Reconciliation Pharmacy has completed the medication reconciliation. PT STATES NO MEDICATIONS BUT HE IS AN ADDICT
--- NOTE | 2022-05-09 09:18 | PC.NURSE ---
Care team contacted regarding consult as the patient is beginning to have sx of withdrawal. also notified.
--- NOTE | 2022-05-09 10:08 | PHA.PROG ---
Admission Date/Time: Indication: Bacteremia Weight in k.039 kg Adjusted body weight in K kg [place] body weight in K kg Obesity Dosing Indication % IBW: N/A Serum Creatinine - Last 168 Hours 05/09/22 03:26 Creatinine 0.79 Estimated CrCl and GFR - Last 168 Hours 05/09/22 03:26 Estim Creat Clear Calc 131.5 Estimated GFR > 60 Vancomycin Loading Dose: 1750 mg (25 mg/kg) Current Vancomycin Dosing Regimen: 1250 mg Q12H Date and Time for next Vancomycin Level to be drawn: 05/10 @ 1400 Pharmacist Comments on Vancomycin Plan: Patient receieved loading dose vancomycin 1750 mg in the ED 05/09 @ 0424. [place] dose vancomycin 1250 mg Q12H scheduled to begin 05/09 @ 1600. Expected AUC 516 with a trough of 14.7. Trough to be drawn prior to 4th dose Pharmacy will monitor renal function peterAnnette Wright, PharmTea Vancomycin dosing will take advantage of [employer] as a clinical decision support tool that uses Bayesian modeling to calculate individual patient's pharmacokinetic parameters and forecast the patient's drug concentration time course with the target goal AUC 24 range of 400 - 600 mg/L/hr.
--- NOTE | 2022-05-09 10:24 | ED.GENADULT ---
HPI - General Adult General Chief complaint: General Medical Stated complaint: lower leg swelling Time Seen by Provider: 05/09/22 01:30 Source: patient Mode of arrival: ambulatory Limitations: no limitations History of Present Illness HPI narrative: Patient seen in ED, currently admitted with pneumonia, cellulitis and possible endocarditis. Minimal history obtained as patient visibly not feeling well. Reporting 2 bundles of IV heroin use daily. Living on the streets Currently not on any treatment for OUD--however has history of both methadone and suboxone treatment Reporting withdrawal sx--chills, nausea, stomach discomfort, Related Data Home Medications Medication Instructions Recorded Confirmed No Known Home Meds 05/09/22 05/09/22 Allergies Allergy/AdvReac Type Severity Reaction Status Date / Time No Known Allergies Allergy Verified 05/09/22 01:10 [No Known Allergies*] PMFSH Past Medical History Medical History Polysubstance abuse Surgical History No history of previous surgery Social History Social History Advance Directives: No Advance Directives Information Provided: Yes Physical Exam ED Vital Signs: Vital Signs - 24 hr 05/09/22 01:11 05/09/22 02:04 05/09/22 03:34 Temperature 98.4 F 100.8 F H Pulse Rate 104 H 93 98 Respiratory Rate 16 18 36 H Blood Pressure 120/73 115/56 L 129/70 Pulse Oximetry 96 96 97 Oxygen Delivery Method Room Air Room Air Room Air 05/09/22 04:32 05/09/22 06:00 05/09/22 06:42 Temperature 99.9 F 98.3 F 98.7 F Pulse Rate 91 79 78 Respiratory Rate 18 15 16 Blood Pressure 119/61 109/62 104/50 L Pulse Oximetry 95 98 Oxygen Delivery Method Room Air Room Air 05/09/22 09:08 Temperature Pulse Rate 90 Respiratory Rate 17 Blood Pressure 123/74 Pulse Oximetry 96 Oxygen Delivery Method Room Air BMI result Body Mass Index 21.5 Medical Decision Making Lab Data Result diagrams: 05/09/22 03:26 05/09/22 03:26 Labs: Lab Results 05/09/22 05/09/22 05/09/22 Range/Units 02:59 03:26 03:26 WBC 21.3 H (4.8-10.8) X10*3/uL RBC 4.27 L (4.60-5.80) X10*6/uL Hgb 12.0 L (14.0-18.0) g/dl Hct 35.2 L (42.0-52.0) % MCV 82.4 (80.0-98.0) fL MCH 28.1 (27.0-33.0) pg MCHC 34.1 (31.0-36.0) g/dl RDW 12.0 (11.0-16.0) % Plt Count 471 H D (160-400) X10*3/uL MPV 9.3 L (9.4-12.4) fL Immature Gran % (Auto) 3.5 H (0.0-0.4) % Neut % (Auto) 80.4 H (45-73) % Lymph % (Auto) 8.6 L (20-40) % [place] % (Auto) 7.0 (2-11) % Eos % (Auto) 0.3 (0-4) % Baso % (Auto) 0.2 (0-2) % Lymph # (Auto) 1.8 (1.2-4.9) X10*3/uL [place] # (Auto) 1.5 H (0.1-1.2) X10*3/uL Eos # (Auto) 0.1 (0.0-0.4) X10*3/uL Baso # (Auto) 0.0 (0.0-0.2) X10*3/uL Abs Immat Gran (auto) 0.74 H (0.00-0.03) X10*3/uL Absolute Neuts (auto) 17.1 H (2.0-8.3) x10*3/uL Absolute Nucleated RBC 0.000 (0.0-0.012) X10*3/uL Nucleated RBC % (auto) 0.0 (0.0-0.2) /100WBC Sodium 135 (135-145) mmol/L Potassium 3.1 L (3.3-5.1) mmol/L Chloride 94 L (96-108) mmol/L Carbon Dioxide 28 (22-29) mmol/L Anion Gap 16 (12-20) BUN 6 L (9-16) mg/dL Creatinine 0.79 (0.5-1.4) mg/dL Estim Creat Clear Calc 131.5 Estimated GFR > 60 Random Glucose 124 H (60-115) mg/dL Lactic Acid (0.5-2.0) mmol/L Calcium 8.3 L D (8.4-10.2) mg/dL Magnesium 2.2 (1.6-2.6) mg/dL Total Bilirubin 0.8 (0.0-1.0) mg/dL Direct Bilirubin 0.5 (0.0-0.5) mg/dL AST 72 H (5-37) U/L ALT 48 H (0-40) U/L Alkaline Phosphatase 110 (39-117) U/L Total Protein 7.2 (6.5-8.0) g/dL Albumin 2.9 L D (3.5-5.0) g/dL Urine Color Urine Appearance Urine pH (5.0-8.0) Ur Specific [place] (1.005-1.025) Urine Protein (NEG-TRACE) MG/DL Urine Glucose (UA) (NEG) MG/DL Urine Ketones (NEG) MG/DL Urine Blood (NEG) Urine Nitrite (NEG) Ur Leukocyte Esterase (NEG) Urine Opiates Screen (Not Detect) Urine Fentanyl Screen (Not Detect) Ur Barbiturates Screen (Not Detect) Ur Phencyclidine Scrn (Not Detect) Ur Amphetamines Screen (Not Detect) U Benzodiazepines Scrn (Not Detect) Urine Cocaine Screen (Not Detect) U Marijuana (THC) Screen (Not Detect) Ethyl Alcohol < 10 mg/dL COVID-19 (CARLOS) Negative (Negative) COVID-19 Clin Com See Note 05/09/22 05/09/22 05/09/22 Range/Units 03:26 06:05 06:05 WBC (4.8-10.8) X10*3/uL RBC (4.60-5.80) X10*6/uL Hgb (14.0-18.0) g/dl Hct (42.0-52.0) % MCV (80.0-98.0) fL MCH (27.0-33.0) pg MCHC (31.0-36.0) g/dl RDW (11.0-16.0) % Plt Count (160-400) X10*3/uL MPV (9.4-12.4) fL Immature Gran % (Auto) (0.0-0.4) % Neut % (Auto) (45-73) % Lymph % (Auto) (20-40) % [place] % (Auto) (2-11) % Eos % (Auto) (0-4) % Baso % (Auto) (0-2) % Lymph # (Auto) (1.2-4.9) X10*3/uL [place] # (Auto) (0.1-1.2) X10*3/uL Eos # (Auto) (0.0-0.4) X10*3/uL Baso # (Auto) (0.0-0.2) X10*3/uL Abs Immat Gran (auto) (0.00-0.03) X10*3/uL Absolute Neuts (auto) (2.0-8.3) x10*3/uL Absolute Nucleated RBC (0.0-0.012) X10*3/uL Nucleated RBC % (auto) (0.0-0.2) /100WBC Sodium (135-145) mmol/L Potassium (3.3-5.1) mmol/L Chloride (96-108) mmol/L Carbon Dioxide (22-29) mmol/L Anion Gap (12-20) BUN (9-16) mg/dL Creatinine (0.5-1.4) mg/dL Estim Creat Clear Calc Estimated GFR Random Glucose (60-115) mg/dL Lactic Acid 1.3 (0.5-2.0) mmol/L Calcium (8.4-10.2) mg/dL Magnesium (1.6-2.6) mg/dL Total Bilirubin (0.0-1.0) mg/dL Direct Bilirubin (0.0-0.5) mg/dL AST (5-37) U/L ALT (0-40) U/L Alkaline Phosphatase (39-117) U/L Total Protein (6.5-8.0) g/dL Albumin (3.5-5.0) g/dL Urine Color YELLOW Urine Appearance CLEAR Urine pH 6.5 (5.0-8.0) Ur Specific [place] <= 1.005 (1.005-1.025) Urine Protein NEG (NEG-TRACE) MG/DL Urine Glucose (UA) NEG (NEG) MG/DL Urine Ketones NEG (NEG) MG/DL Urine Blood NEG (NEG) Urine Nitrite NEG (NEG) Ur Leukocyte Esterase NEG (NEG) Urine Opiates Screen POSITIVE H (Not Detect) Urine Fentanyl Screen POSITIVE H (Not Detect) Ur Barbiturates Screen Not Detected (Not Detect) Ur Phencyclidine Scrn Not Detected (Not Detect) Ur Amphetamines Screen Not Detected (Not Detect) U Benzodiazepines Scrn Not Detected (Not Detect) Urine Cocaine Screen POSITIVE H (Not Detect) U Marijuana (THC) Screen Not Detected (Not Detect) Ethyl Alcohol mg/dL COVID-19 (CARLOS) (Negative) COVID-19 Clin Com Discharge Plan Discharge Clinical Impression: Polysubstance abuse, Pneumonia, Pleural effusion, Bilateral cellulitis of lower leg, Endocarditis, suspected Patient Disposition: Admitted As Inpatient
[2022-05-09 10:34] LABS: Procalcitonin 1.74 ng/mL
--- NOTE | 2022-05-09 10:34 | HO.ADDICT_ITS ---
History of Present Illness Date of Service: 05/09/2022 Chief Complaint: Pneumonia, heart murmurs, IVDA Reason for Consult: opioid withdrawal HPI Narrative: Patient seen in ED, currently admitted with pneumonia, cellulitis and possible endocarditis. Minimal history obtained as patient visibly not feeling well. Reporting 2 bundles of IV heroin use daily. Living on the streets Currently not on any treatment for OUD--however has history of both methadone and suboxone treatment Reporting withdrawal sx--chills, nausea, stomach discomfort. Last use reported as being yesterday morning. Review of Systems Constitutional: Reports as per HPI Diagnostics Vital Signs (24Hr): Vital Signs - 24 hr 05/09/22 01:11 05/09/22 02:04 05/09/22 03:34 Temperature 98.4 F 100.8 F H Pulse Rate 104 H 93 98 Respiratory Rate 16 18 36 H Blood Pressure 120/73 115/56 L 129/70 Pulse Oximetry 96 96 97 Oxygen Delivery Method Room Air Room Air Room Air 05/09/22 04:32 05/09/22 06:00 05/09/22 06:42 Temperature 99.9 F 98.3 F 98.7 F Pulse Rate 91 79 78 Respiratory Rate 18 15 16 Blood Pressure 119/61 109/62 104/50 L Pulse Oximetry 95 98 Oxygen Delivery Method Room Air Room Air 05/09/22 09:08 Temperature Pulse Rate 90 Respiratory Rate 17 Blood Pressure 123/74 Pulse Oximetry 96 Oxygen Delivery Method Room Air BMI result Body Mass Index 21.5 Labs Results: 05/09/22 03:26 05/09/22 03:26 Labs: Laboratory Results - last 48 hr 05/09/22 05/09/22 05/09/22 02:59 03:26 03:26 WBC 21.3 H RBC 4.27 L Hgb 12.0 L Hct 35.2 L MCV 82.4 MCH 28.1 MCHC 34.1 RDW 12.0 Plt Count 471 H D MPV 9.3 L Immature Gran % (Auto) 3.5 H Neut % (Auto) 80.4 H Lymph % (Auto) 8.6 L [place] % (Auto) 7.0 Eos % (Auto) 0.3 Baso % (Auto) 0.2 Lymph # (Auto) 1.8 [place] # (Auto) 1.5 H Eos # (Auto) 0.1 Baso # (Auto) 0.0 Abs Immat Gran (auto) 0.74 H Absolute Neuts (auto) 17.1 H Absolute Nucleated RBC 0.000 Nucleated RBC % (auto) 0.0 Sodium 135 Potassium 3.1 L Chloride 94 L Carbon Dioxide 28 Anion Gap 16 BUN 6 L Creatinine 0.79 Estim Creat Clear Calc 131.5 Estimated GFR > 60 Random Glucose 124 H Lactic Acid Calcium 8.3 L D Magnesium 2.2 Total Bilirubin 0.8 Direct Bilirubin 0.5 AST 72 H ALT 48 H Alkaline Phosphatase 110 Total Protein 7.2 Albumin 2.9 L D Procalcitonin Urine Color Urine Appearance Urine pH Ur Specific [place] Urine Protein Urine Glucose (UA) Urine Ketones Urine Blood Urine Nitrite Ur Leukocyte Esterase Urine Opiates Screen Urine Fentanyl Screen Ur Barbiturates Screen Ur Phencyclidine Scrn Ur Amphetamines Screen U Benzodiazepines Scrn Urine Cocaine Screen U Marijuana (THC) Screen Ethyl Alcohol < 10 COVID-19 (CARLOS) Negative COVID-19 Clin Com See Note 05/09/22 05/09/22 05/09/22 03:26 03:26 06:05 WBC RBC Hgb Hct MCV MCH MCHC RDW Plt Count MPV Immature Gran % (Auto) Neut % (Auto) Lymph % (Auto) [place] % (Auto) Eos % (Auto) Baso % (Auto) Lymph # (Auto) [place] # (Auto) Eos # (Auto) Baso # (Auto) Abs Immat Gran (auto) Absolute Neuts (auto) Absolute Nucleated RBC Nucleated RBC % (auto) Sodium Potassium Chloride Carbon Dioxide Anion Gap BUN Creatinine Estim Creat Clear Calc Estimated GFR Random Glucose Lactic Acid 1.3 Calcium Magnesium Total Bilirubin Direct Bilirubin AST ALT Alkaline Phosphatase Total Protein Albumin Procalcitonin 1.74 Urine Color YELLOW Urine Appearance CLEAR Urine pH 6.5 Ur Specific [place] <= 1.005 Urine Protein NEG Urine Glucose (UA) NEG Urine Ketones NEG Urine Blood NEG Urine Nitrite NEG Ur Leukocyte Esterase NEG Urine Opiates Screen Urine Fentanyl Screen Ur Barbiturates Screen Ur Phencyclidine Scrn Ur Amphetamines Screen U Benzodiazepines Scrn Urine Cocaine Screen U Marijuana (THC) Screen Ethyl Alcohol COVID-19 (CARLOS) COVID-19 Clin Com 05/09/22 06:05 WBC RBC Hgb Hct MCV MCH MCHC RDW Plt Count MPV Immature Gran % (Auto) Neut % (Auto) Lymph % (Auto) [place] % (Auto) Eos % (Auto) Baso % (Auto) Lymph # (Auto) [place] # (Auto) Eos # (Auto) Baso # (Auto) Abs Immat Gran (auto) Absolute Neuts (auto) Absolute Nucleated RBC Nucleated RBC % (auto) Sodium Potassium Chloride Carbon Dioxide Anion Gap BUN Creatinine Estim Creat Clear Calc Estimated GFR Random Glucose Lactic Acid Calcium Magnesium Total Bilirubin Direct Bilirubin AST ALT Alkaline Phosphatase Total Protein Albumin Procalcitonin Urine Color Urine Appearance Urine pH Ur Specific [place] Urine Protein Urine Glucose (UA) Urine Ketones Urine Blood Urine Nitrite Ur Leukocyte Esterase Urine Opiates Screen POSITIVE H Urine Fentanyl Screen POSITIVE H Ur Barbiturates Screen Not Detected Ur Phencyclidine Scrn Not Detected Ur Amphetamines Screen Not Detected U Benzodiazepines Scrn Not Detected Urine Cocaine Screen POSITIVE H U Marijuana (THC) Screen Not Detected Ethyl Alcohol COVID-19 (CARLOS) COVID-19 Clin Com Imaging Radiology Impressions: ITS Impressions Chest X-Ray 05/09/22 03:00 IMPRESSION: Small right pleural effusion. Airspace opacity could be atelectasis or pneumonia. Mental Status Exam Mental Status Exam Patient Appearance: Fatigued Level of Consciousness: Awake and Restless Patient Behavior: Restless Medications Medications Current Medications Doxycycline Hyclate (Doxycycline Hyclate 100 Mg Tablet) 100 mg PO Q12H DIEUDONNE Ceftriaxone Sodium 1 gm/ (Sodium Chloride) 50 mls @ 100 mls/hr IV Q24H DIEUDONNE Vancomycin HCl 1,250 mg/ (Sodium Chloride) 250 mls @ 166.667 mls/hr IV Q12H DIEUDONNE Allergies Allergies Allergy/AdvReac Type Severity Reaction Status Date / Time No Known Allergies Allergy Verified 05/09/22 01:10 [No Known Allergies*] Assessment & Plan Assessment & Plan (1) Opioid withdrawal: Status: Acute Code(s): F11.93 - Opioid use, unspecified with withdrawal Assessment and Plan: * methadone 30mg * will order 40mg for AM and reassess I spent ____25__ minutes with the patient and/or on the patient floor today, greater than?50% of which was spent counseling/coordinating care. [facility] Past Medical History Medical History Polysubstance abuse Surgical History Surgical History No history of previous surgery Social History Social History Advance Directives: No Advance Directives Information Provided: Yes
[2022-05-09] MEDS: cefTRIAXone sodium 1 GM in 0.9 % Sodium Chloride 50 ML IV (10:57)
[2022-05-09] MEDS: methADONE HCl 20 MG/2 ML ORAL.CONC 30 MG PO (10:57)
--- NOTE | 2022-05-09 11:00 | PC.NURSE ---
pt medicated per order float rn
--- NOTE | 2022-05-09 12:25 | P.CNPS_ITS ---
History of Present Illness Date of Service: 05/09/2022 Chief Complaint: Pneumonia, heart murmurs, IVDA Reason for Consult: review of withdrawal symptoms Sources of Information: patient interviewed and chart reviewed Additional Sources of Information: addiction consult HPI Narrative: patient admitted with pneumonia, cellulitis and workup for endocarditis in the context of intravenous drug use. Please see addiction consult from earlier today. Patient pleasant and engaged during short interview, which was limited in the context of patient feeling short of breath and visibly tired. He was oriented to where he was, day of week and why he was there. Confirmed substance use recently consistent with other documentation within the record. Reports being homeless for the last year. Denied active legal issues. Reports not being on medications. Denied any past psychiatric history. Did ask appropriate questions such as what is cellulitis? . Aware that he is being treated with antibiotics and informed also being evaluated for potential Heart inflam mation. Past Psychiatric History: denies. Denies ever being on treatment for depression or anxiety. Has been treated with methadone and Suboxone in the past. Denied inpatient episodes. Denied suicide attempts. Medical Evaluation Reviewed: No Personal & Social History: Homeless. Denied active legal issues. Reported not having supports are family within the area. [facility] Medical History Polysubstance abuse Surgical History No history of previous surgery Diagnostics Vital Signs (24Hr): Vital Signs - 24 hr 05/09/22 01:11 05/09/22 02:04 05/09/22 03:34 Temperature 98.4 F 100.8 F H Pulse Rate 104 H 93 98 Respiratory Rate 16 18 36 H Blood Pressure 120/73 115/56 L 129/70 Pulse Oximetry 96 96 97 Oxygen Delivery Method Room Air Room Air Room Air 05/09/22 04:32 05/09/22 06:00 05/09/22 06:42 Temperature 99.9 F 98.3 F 98.7 F Pulse Rate 91 79 78 Respiratory Rate 18 15 16 Blood Pressure 119/61 109/62 104/50 L Pulse Oximetry 95 98 Oxygen Delivery Method Room Air Room Air 05/09/22 09:08 05/09/22 11:45 Temperature 99.6 F Pulse Rate 90 100 Respiratory Rate 17 18 Blood Pressure 123/74 122/72 Pulse Oximetry 96 97 Oxygen Delivery Method Room Air Room Air BMI result Body Mass Index 21.5 Labs Results: 05/09/22 03:26 05/09/22 03:26 Labs: Laboratory Results - last 48 hr 05/09/22 05/09/22 05/09/22 02:59 03:26 03:26 WBC 21.3 H RBC 4.27 L Hgb 12.0 L Hct 35.2 L MCV 82.4 MCH 28.1 MCHC 34.1 RDW 12.0 Plt Count 471 H D MPV 9.3 L Immature Gran % (Auto) 3.5 H Neut % (Auto) 80.4 H Lymph % (Auto) 8.6 L [place] % (Auto) 7.0 Eos % (Auto) 0.3 Baso % (Auto) 0.2 Lymph # (Auto) 1.8 [place] # (Auto) 1.5 H Eos # (Auto) 0.1 Baso # (Auto) 0.0 Abs Immat Gran (auto) 0.74 H Absolute Neuts (auto) 17.1 H Absolute Nucleated RBC 0.000 Nucleated RBC % (auto) 0.0 Sodium 135 Potassium 3.1 L Chloride 94 L Carbon Dioxide 28 Anion Gap 16 BUN 6 L Creatinine 0.79 Estim Creat Clear Calc 131.5 Estimated GFR > 60 Random Glucose 124 H Lactic Acid Calcium 8.3 L D Magnesium 2.2 Total Bilirubin 0.8 Direct Bilirubin 0.5 AST 72 H ALT 48 H Alkaline Phosphatase 110 Total Protein 7.2 Albumin 2.9 L D Procalcitonin Urine Color Urine Appearance Urine pH Ur Specific [place] Urine Protein Urine Glucose (UA) Urine Ketones Urine Blood Urine Nitrite Ur Leukocyte Esterase Urine Opiates Screen Urine Fentanyl Screen Ur Barbiturates Screen Ur Phencyclidine Scrn Ur Amphetamines Screen U Benzodiazepines Scrn Urine Cocaine Screen U Marijuana (THC) Screen Ethyl Alcohol < 10 COVID-19 (CARLOS) Negative COVID-19 Clin Com See Note 05/09/22 05/09/22 05/09/22 03:26 03:26 06:05 WBC RBC Hgb Hct MCV MCH MCHC RDW Plt Count MPV Immature Gran % (Auto) Neut % (Auto) Lymph % (Auto) [place] % (Auto) Eos % (Auto) Baso % (Auto) Lymph # (Auto) [place] # (Auto) Eos # (Auto) Baso # (Auto) Abs Immat Gran (auto) Absolute Neuts (auto) Absolute Nucleated RBC Nucleated RBC % (auto) Sodium Potassium Chloride Carbon Dioxide Anion Gap BUN Creatinine Estim Creat Clear Calc Estimated GFR Random Glucose Lactic Acid 1.3 Calcium Magnesium Total Bilirubin Direct Bilirubin AST ALT Alkaline Phosphatase Total Protein Albumin Procalcitonin 1.74 Urine Color YELLOW Urine Appearance CLEAR Urine pH 6.5 Ur Specific [place] <= 1.005 Urine Protein NEG Urine Glucose (UA) NEG Urine Ketones NEG Urine Blood NEG Urine Nitrite NEG Ur Leukocyte Esterase NEG Urine Opiates Screen Urine Fentanyl Screen Ur Barbiturates Screen Ur Phencyclidine Scrn Ur Amphetamines Screen U Benzodiazepines Scrn Urine Cocaine Screen U Marijuana (THC) Screen Ethyl Alcohol COVID-19 (CARLOS) COVID-19 Mobibeam 05/09/22 06:05 WBC RBC Hgb Hct MCV MCH MCHC RDW Plt Count MPV Immature Gran % (Auto) Neut % (Auto) Lymph % (Auto) [place] % (Auto) Eos % (Auto) Baso % (Auto) Lymph # (Auto) [place] # (Auto) Eos # (Auto) Baso # (Auto) Abs Immat Gran (auto) Absolute Neuts (auto) Absolute Nucleated RBC Nucleated RBC % (auto) Sodium Potassium Chloride Carbon Dioxide Anion Gap BUN Creatinine Estim Creat Clear Calc Estimated GFR Random Glucose Lactic Acid Calcium Magnesium Total Bilirubin Direct Bilirubin AST ALT Alkaline Phosphatase Total Protein Albumin Procalcitonin Urine Color Urine Appearance Urine pH Ur Specific [place] Urine Protein Urine Glucose (UA) Urine Ketones Urine Blood Urine Nitrite Ur Leukocyte Esterase Urine Opiates Screen POSITIVE H Urine Fentanyl Screen POSITIVE H Ur Barbiturates Screen Not Detected Ur Phencyclidine Scrn Not Detected Ur Amphetamines Screen Not Detected U Benzodiazepines Scrn Not Detected Urine Cocaine Screen POSITIVE H U Marijuana (THC) Screen Not Detected Ethyl Alcohol COVID-19 (CARLOS) COVID-19 Mobibeam Imaging Radiology Impressions: ITS Impressions Chest X-Ray 05/09/22 03:00 IMPRESSION: Small right pleural effusion. Airspace opacity could be atelectasis or pneumonia. Mental Status Exam Mental Status Exam Narrative: pleasant. Tired. Did engage. Oriented. Denied depression SI HI. No psychosis. Insight and judgment does appear to be fair Medications Medications Current Medications Acetaminophen (Acetaminophen 325 Mg Tablet) 650 mg PO Q6H PRN PRN Reason: Pain, Mild (Pain Scale 1-3) Doxycycline Hyclate (Doxycycline Hyclate 100 Mg Tablet) 100 mg PO Q12H [facility] Last Admin: 05/09/22 10:57 Dose: 100 mg Enoxaparin Sodium (Enoxaparin Sodium 40 Mg/0.4 Ml Syringe) 40 mg SUBCUT Q24H DIEUDONNE Ceftriaxone Sodium 1 gm/ (Sodium Chloride) 50 mls @ 100 mls/hr IV Q24H [facility] Last Admin: 05/09/22 10:57 Dose: 100 mls/hr Vancomycin HCl 1,250 mg/ (Sodium Chloride) 250 mls @ 166.667 mls/hr IV Q12H DIEUDONNE Ondansetron HCl (Ondansetron Hcl 4 Mg/2 Ml Vial) 4 mg IVPUSH Q8H PRN PRN Reason: Nausea and Vomiting Sodium Chloride (0.9 % Sodium Chloride Flush 3 Ml Syringe) 3 ml IVFLUSH QSHIFT [facility] Allergies Allergies Allergy/AdvReac Type Severity Reaction Status Date / Time No Known Allergies Allergy Verified 05/09/22 01:10 [No Known Allergies*] Assessment & Plan Assessment & Plan (1) Polysubstance abuse: Status: Acute Code(s): F19.10 - Other psychoactive substance abuse, uncomplicated Plan presents with pneumonia and cellulitis in the context of IV drug use and workup for endocarditis. on IV antibiotics. Seen by Addiction services and given methadone 30 mg and will be followed by them tomorrow. There are no acute psychiatric issues outside of withdrawals and recent substance use. Given involvement of Addiction Services, there is no need for added involvement from Psychiatry and will therefore sign off case. I spent minutes with the patient and/or on the patient floor today, greater than?50% of which was spent counseling/coordinating care. Patient educated on: diagnosis and medication risk/benefits Informed Consent: understands
[2022-05-09] MEDS: Enoxaparin Sodium 40 MG/0.4 ML SYRINGE SUBCUT (13:01)
--- NOTE | 2022-05-09 13:33 | PM.IMHP ---
History of Present Illness Date of Service: 05/09/22 Chief Complaint: cough 31yo M with hx injection heroin + cocaine abuse who uses 2 bundles of heroin daily came in to ED c/o R-sided chest pain and leg pain. Notes cough and dyspnea and tactile fever for the past few days. No hx of bloodstream infection or endocarditis. History of methadone + Suboxone treatment. Currently c/o chills, nausea, stomach discomfort along with the cough which is non-productive. Nonsmoker and no hx of asthma. In the ED, he was mildly febrile to 100.8. Labs showed WBCs of 21.3 with 80% PMNs. K was 3.1 and AST 72, ALT 48. CXR showed small R pleural effusion with basilar infiltrate. He was also noted to have a heart murmur, which is new for him. He was given vancomycin and piperacillin/tazobactam along with IV KCl. Review of Systems Review of Systems: Yes all other systems are reviewed and are negative PMFSH Medical History Polysubstance abuse Surgical History No history of previous surgery Social History Advance Directives: No Advance Directives Information Provided: Yes Meds Allergies Allergy/AdvReac Type Severity Reaction Status Date / Time No Known Allergies Allergy Verified 05/09/22 01:10 [No Known Allergies*] Active Medications: Current Medications Acetaminophen (Acetaminophen 325 Mg Tablet) 650 mg PO Q6H PRN PRN Reason: Pain, Mild (Pain Scale 1-3) Doxycycline Hyclate (Doxycycline Hyclate 100 Mg Tablet) 100 mg PO Q12H [facility] [place] Last Admin: 05/09/22 10:57 Dose: 100 mg Enoxaparin Sodium (Enoxaparin Sodium 40 Mg/0.4 Ml Syringe) 40 mg SUBCUT Q24H DIEUDONNE Last Admin: 05/09/22 13:01 Dose: 40 mg Ceftriaxone Sodium 1 gm/ (Sodium Chloride) 50 mls @ 100 mls/hr IV Q24H [facility] [place] Last Infusion: 05/09/22 11:30 Dose: Infused Vancomycin HCl 1,250 mg/ (Sodium Chloride) 250 mls @ 166.667 mls/hr IV Q12H [facility] [place] Methadone HCl (Methadone Hcl 20 Mg/2 Ml Oral.Conc) 40 mg PO DAILY [facility] [place] Ondansetron HCl (Ondansetron Hcl 4 Mg/2 Ml Vial) 4 mg IVPUSH Q8H PRN PRN Reason: Nausea and Vomiting Sodium Chloride (0.9 % Sodium Chloride Flush 3 Ml Syringe) 3 ml IVFLUSH QSHIFT [facility] [place] Home Medications Medication Instructions Recorded Confirmed Last Taken Type No Known Home Meds 05/09/22 05/09/22 Unknown History Physical Exam Vital Signs and Narrative: Vital Signs: Last Vital Signs Temp 99.6 F 05/09/22 11:45 Pulse 100 05/09/22 11:45 Resp 18 05/09/22 11:45 BP 122/72 05/09/22 11:45 Pulse Ox 97 05/09/22 11:45 O2 Del Method 05/09/22 11:45 BMI result Body Mass Index 21.5 Gen: anxious, uncomfortable, disheveled HEENT: sclera anicteric, moist mucus membranes Neck: supple Lungs: diminished bilatearally Heart: regular rate, 2/6 murmur at apex Abd: soft, non-tender, non-distended Ext: no edema Skin: warm/well-perfused, extensive track marking Neuro: alert and oriented x3, no focal findings Psych: appropriate affect Results Labs CBC and Chem 7: 05/09/22 03:26 05/09/22 03:26 Labs: Laboratory Results - last 24 hr 05/09/22 05/09/22 05/09/22 02:59 03:26 03:26 MCV 82.4 MCH 28.1 MCHC 34.1 RDW 12.0 Plt Count 471 H D MPV 9.3 L Immature Gran % (Auto) 3.5 H Neut % (Auto) 80.4 H Lymph % (Auto) 8.6 L [place] % (Auto) 7.0 Eos % (Auto) 0.3 Baso % (Auto) 0.2 Lymph # (Auto) 1.8 [place] # (Auto) 1.5 H Eos # (Auto) 0.1 Baso # (Auto) 0.0 Abs Immat Gran (auto) 0.74 H Absolute Neuts (auto) 17.1 H Absolute Nucleated RBC 0.000 Nucleated RBC % (auto) 0.0 Anion Gap 16 Estim Creat Clear Calc 131.5 Estimated GFR > 60 Random Glucose 124 H Lactic Acid Calcium 8.3 L D Magnesium 2.2 Total Bilirubin 0.8 Direct Bilirubin 0.5 AST 72 H ALT 48 H Alkaline Phosphatase 110 Total Protein 7.2 Albumin 2.9 L D Procalcitonin Urine Color Urine Appearance Urine pH Ur Specific [place] Urine Protein Urine Glucose (UA) Urine Ketones Urine Blood Urine Nitrite Ur Leukocyte Esterase Urine Opiates Screen Urine Fentanyl Screen Ur Barbiturates Screen Ur Phencyclidine Scrn Ur Amphetamines Screen U Benzodiazepines Scrn Urine Cocaine Screen U Marijuana (THC) Screen Ethyl Alcohol < 10 COVID-19 (CARLOS) Negative COVID-19 Clin Com See Note 05/09/22 05/09/22 05/09/22 03:26 03:26 06:05 MCV MCH MCHC RDW Plt Count MPV Immature Gran % (Auto) Neut % (Auto) Lymph % (Auto) [place] % (Auto) Eos % (Auto) Baso % (Auto) Lymph # (Auto) [place] # (Auto) Eos # (Auto) Baso # (Auto) Abs Immat Gran (auto) Absolute Neuts (auto) Absolute Nucleated RBC Nucleated RBC % (auto) Anion Gap Estim Creat Clear Calc Estimated GFR Random Glucose Lactic Acid 1.3 Calcium Magnesium Total Bilirubin Direct Bilirubin AST ALT Alkaline Phosphatase Total Protein Albumin Procalcitonin 1.74 Urine Color YELLOW Urine Appearance CLEAR Urine pH 6.5 Ur Specific [place] <= 1.005 Urine Protein NEG Urine Glucose (UA) NEG Urine Ketones NEG Urine Blood NEG Urine Nitrite NEG Ur Leukocyte Esterase NEG Urine Opiates Screen Urine Fentanyl Screen Ur Barbiturates Screen Ur Phencyclidine Scrn Ur Amphetamines Screen U Benzodiazepines Scrn Urine Cocaine Screen U Marijuana (THC) Screen Ethyl Alcohol COVID-19 (CARLOS) COVID-19 Clin Com 05/09/22 06:05 MCV MCH MCHC RDW Plt Count MPV Immature Gran % (Auto) Neut % (Auto) Lymph % (Auto) [place] % (Auto) Eos % (Auto) Baso % (Auto) Lymph # (Auto) [place] # (Auto) Eos # (Auto) Baso # (Auto) Abs Immat Gran (auto) Absolute Neuts (auto) Absolute Nucleated RBC Nucleated RBC % (auto) Anion Gap Estim Creat Clear Calc Estimated GFR Random Glucose Lactic Acid Calcium Magnesium Total Bilirubin Direct Bilirubin AST ALT Alkaline Phosphatase Total Protein Albumin Procalcitonin Urine Color Urine Appearance Urine pH Ur Specific [place] Urine Protein Urine Glucose (UA) Urine Ketones Urine Blood Urine Nitrite Ur Leukocyte Esterase Urine Opiates Screen POSITIVE H Urine Fentanyl Screen POSITIVE H Ur Barbiturates Screen Not Detected Ur Phencyclidine Scrn Not Detected Ur Amphetamines Screen Not Detected U Benzodiazepines Scrn Not Detected Urine Cocaine Screen POSITIVE H U Marijuana (THC) Screen Not Detected Ethyl Alcohol COVID-19 (CARLOS) COVID-19 Clin Com Imaging Radiologist's Impressions: Impressions Chest X-Ray 05/09/22 03:00 IMPRESSION: Small right pleural effusion. Airspace opacity could be atelectasis or pneumonia. Assessment and Plan (1) Opioid withdrawal: Status: Acute (2) Polysubstance abuse: Status: Acute (3) Pneumonia: Status: Acute (4) Pleural effusion: Status: Acute Plan 31yo M with history of injection heroin + cocaine abuse presenting with cough, dyspnea, and tactile fever and found to have pneumonia with small pleural effusion. # PNA - admit to M/S, give ceftriaxone + vancomycin given MRSA risk factor and heart murmur which has not previously been noted, monitor BCx, trend PCT, check HIV and respiratory pathogen panel # hypoK - repleted, recheck level in AM # opioid withdrawal/disorder - start methadone as per Addiction Medicine # cocaine abuse - CARE Team, screen HBV/HCV/HIV # VTE ppx: LMWH In my clinical judgment, the patient requires continued hospitalization for the following reasons: IV ABX Quality Stroke Does the patient have a stroke diagnosis?: No VTE Prior VTE?: No VTE Risk Level:: Medical - moderate - high VTE Device Contraindication: N/A - Device Ordered VTE Drug Contraindication: N/A - Med Ordered
--- NOTE | 2022-05-09 20:15 | W.PM.CCHP ---
Procedures Date of Service Date of Service: 05/09/22 Abscess I/D Consent for Procedure: Elective - informed consent obtained (from the patient verbally in precense of his RN CLYDE ) Central Line Placement Right IJ: Central Line Comments: Request by the hospitalist to place a central line was made to me. Patient seen in the emergency room, although young appear significantly ill, after identifying anatomical landmarks via ultrasound, the whole area was prepped and dressed in a sterile manner, 5 mL of 1% lidocaine was injected at the insertion site. The right IJ was identified again, using a central line needle the vessel was accessed via ultrasound with good blood return in a nonpulsatile, dark manner, however after attempting to push through the guidewire, the vein kept collapsing and advancement of the wire was impossible. A total of 2 more attempts were made by inserting the needle at a different angle but again I was not able to advance the wire for the vein with collapse completely. At this point I decided to abort the procedure to avoid any complications. There was no bleeding, no desaturation, no tachycardia tachypnea, x-ray was not taking at this point, I do not suspect an pneumothorax. This procedure will be attempted on the left side.
--- NOTE | 2022-05-09 21:45 | W.PM.CCHP ---
Procedures Date of Service Date of Service: 05/09/22 Central Line Placement Left IJ: Central Line Comments: A quick time-out was made for clarification and proper patient identification, patient was positioned, landmarks were identified, US used to locate a? large compressible IJ.? The left neck was widely prepped and draped in a full sterile fashion.? Ultrasound was used to locate again the left IJ, the vein was cannulated on the 1st pass with an 18 gauge thin needle, dark nonpulsatile blood return was obtained.? The wire was threaded without any resistance, a small incision was made at its base and the dilator was inserted.? A triple-lumen 16 cm central venous catheter was advanced into the vein up to the hub without problems, the wired was removed. Ports had?good blood return and flushed x3.? The catheter was secured with 3 sutures at 3 sites, a Biopatch and dry sterile dressing were applied. Post procedure chest x-ray showed the line to be in good position without pneumothorax.? No bleeding or complications noted.
--- NOTE | 2022-05-09 23:00 | PM.EVENT ---
Event Note Date of Service: 05/09/22 Event Note: Pt with very poor peripheral access with very difficult stick. Asked ICU PA to place line. was able to place an IJ successfully. Confirmed by xray
--- NOTE | 2022-05-09 23:01 | PC.NURSE ---
pharmacy contacted RE rescheduling [facility] - prior to this nurse assuming care of pt at 1500, iv infiltrated, multiple attempts to place new IV by nurses, provider attempted EJ and was unsuccessful, hospitalist notified, ICU PA to ED to place central line - pt tolerated procedure well.
[2022-05-09] MEDS: vancomycin HCL 1,250 MG in 0.9 % Sodium Chloride 250 ML 166.67 MG IV (23:21)
[2022-05-09] MEDS: Acetaminophen 325 MG TABLET 650 MG PO (23:23)
--- NOTE | 2022-05-09 23:27 | PC.NURSE ---
medicated per provider order, pt febrile, given PRN tylenol.
[2022-05-10] VITALS (12 sets, daily range): BP systolic 114–133; BP diastolic 64–78; PULSE 75–90; RESP 18–37; TEMP 37.2–37.9; O2SAT 95–98
[2022-05-10 00:18] LABS: Lactic Acid 0.8 mmol/L (0.5-2.0)
--- NOTE | 2022-05-10 03:36 | PC.NURSE ---
Pt is withdrawing from opiates and complaining that he is very comfortable and anxious in bed. Hospitalist made aware. Plan to order Ativan to treat withdrawal.
[2022-05-10] MEDS: cloNIDine HCL 0.1 MG TABLET PO ×2 (04:05→20:32)
[2022-05-10] MEDS: LORazepam 1 MG TABLET PO (04:05)
[2022-05-10 06:35] LABS: Hematocrit 32.1 % (42.0-52.0); Hemoglobin 11.2 g/dl (14.0-18.0); Mean Corpuscular HGB Conc 34.9 g/dl (31.0-36.0); Mean Corpuscular Hemoglobin 27.9 pg (27.0-33.0); Mean Corpuscular Volume 79.9 fL (80.0-98.0); Mean Platelet Volume 9.4 fL (9.4-12.4); Platelet Count 511 X10*3/uL (160-400); Red Blood Count 4.02 X10*6/uL (4.60-5.80); White Blood Count 23.9 X10*3/uL (4.8-10.8)
[2022-05-10 07:56] LABS: Alanine Aminotransferase 37 U/L (0-40); Anion Gap 15 (12-20); Bilirubin Total 0.8 mg/dL (0.0-1.0); Blood Urea Nitrogen 7 mg/dL (9-16); Carbon Dioxide 25 mmol/L (22-29); Chloride 99 mmol/L (96-108); Creatinine Clr Calc Pharmacy 176.1; Estimated Glomerular Filt Rate > 60; Glucose Random 103 mg/dL (60-115); Potassium 3.6 mmol/L (3.3-5.1); Sodium 135 mmol/L (135-145); Total Protein 5.8 g/dL (6.5-8.0)
[2022-05-10] MEDS: methADONE HCl 20 MG/2 ML ORAL.CONC 40 MG PO (08:35)
[2022-05-10] MEDS: cefTRIAXone sodium 1 GM in 0.9 % Sodium Chloride 50 ML IV (08:38)
--- NOTE | 2022-05-10 08:42 | PC.NURSE ---
Pt sleeping on and off. warm to touch but oral temps are WNL. Skin PWD. c/o all over pain tachipnic even at rest. listless and requesting help with sml movements in bed. LS clear anteriorly.
[2022-05-10 08:53] LABS: Albumin Level 2.2 g/dL (3.5-5.0); Alkaline Phosphatase 74 U/L (39-117); Aspartate Amino Transferase 40 U/L (5-37); Calcium 7.7 mg/dL (8.4-10.2)
--- NOTE | 2022-05-10 09:06 | MHC.CM.PN ---
CM MET WITH PT WHO WAS MINIMALLY ABLE TO ENGAGE PT PROVIDED YES AND NO RESPONSES ONLY PT INDICATES HE LIVES ALONE AND IS INDEPENDENT WITH CARE PT DENIES USING DME OR HAVING SERVICES PT ALSO DENIES HAVING A PCP OR GETTING THE COVID VACCINES PT DENIES HAVING A HCP, COMPLETION OF ONE WAS NOT DISCUSSED FURTHER AT THIS TIME DCP TBD PENDING TREATMENT NEEDS/PREFERENCES HOME VS SA TREATMENT FACILITY VS SNF FOR IV ABX
--- NOTE | 2022-05-10 11:40 | P.PNIM_ITS ---
Subjective Subjective Date of Service: 05/10/22 Interval History: more comfortable occasional cough febrile to 102.4 overnight Review of Systems Review of Systems: Yes all other systems are reviewed and are negative Physical Exam Vital Signs: Vital Signs: Last Vital Signs Temp 99.0 F 05/10/22 10:48 Pulse 79 05/10/22 10:48 Resp 22 H 05/10/22 10:48 BP 115/67 05/10/22 10:48 Pulse Ox 96 05/10/22 10:48 O2 Del Method 05/10/22 10:48 BMI result Body Mass Index 21.5 Gen: disheveled, in NAD HEENT: sclera anicteric, moist mucus membranes Neck: supple, LIJ CVC Lungs: diminished bilaterally Heart: regular rate, 2/6 systolic murmur along LSB Abd: soft, non-tender, non-distended Ext: no edema Skin: warm/well-perfused, extensive track marking Neuro: alert and oriented x3, no focal findings Psych: appropriate affect Objective Data Active Medications Acetaminophen (Acetaminophen 325 Mg Tablet) 650 mg PO Q6H PRN PRN Reason: Pain, Mild (Pain Scale 1-3) Last Admin: 05/09/22 23:23 Dose: 650 mg Documented By: CHANG Clonidine HCl (Clonidine Hcl 0.1 Mg Tablet) 0.1 mg PO TID PRN; Protocol PRN Reason: katya Last Admin: 05/10/22 04:05 Dose: 0.1 mg Documented By: SAMIA Doxycycline Hyclate (Doxycycline Hyclate 100 Mg Tablet) 100 mg PO Q12H [facility] Last Admin: 05/10/22 08:38 Dose: 100 mg Documented By: KYLEE Enoxaparin Sodium (Enoxaparin Sodium 40 Mg/0.4 Ml Syringe) 40 mg SUBCUT Q24H [facility] Last Admin: 05/09/22 13:01 Dose: 40 mg Documented By: RUFUS Ceftriaxone Sodium 1 gm/ (Sodium Chloride) 50 mls @ 100 mls/hr IV Q24H [facility] Last Admin: 05/10/22 08:38 Dose: 100 mls/hr Documented By: KYLEE Vancomycin HCl 1,250 mg/ (Sodium Chloride) 250 mls @ 166.667 mls/hr IV Q12H [facility] Last Infusion: 05/10/22 01:03 Dose: 0 mls/hr Documented By: CHANG Methadone HCl (Methadone Hcl 20 Mg/2 Ml Oral.Conc) 40 mg PO DAILY [facility] Last Admin: 05/10/22 08:35 Dose: 40 mg Documented By: KYLEE Ondansetron HCl (Ondansetron Hcl 4 Mg/2 Ml Vial) 4 mg IVPUSH Q8H PRN PRN Reason: Nausea and Vomiting Sodium Chloride (0.9 % Sodium Chloride Flush 3 Ml Syringe) 3 ml IVFLUSH QSHIFT [facility] Last Admin: 05/10/22 08:38 Dose: Not Given Documented By: KYLEE Non-Admin Reason: Med Not Available Labs CBC & Chem 7: 05/10/22 06:11 05/10/22 06:11 Labs: Laboratory Results - last 24 hr 05/09/22 05/10/22 05/10/22 23:57 06:11 06:11 MCV 79.9 L MCH 27.9 MCHC 34.9 RDW 12.0 Plt Count 511 H MPV 9.4 Absolute Nucleated RBC 0.000 Nucleated RBC % (auto) 0.0 Anion Gap 15 Estim Creat Clear Calc 176.1 Estimated GFR > 60 Random Glucose 103 Lactic Acid 0.8 Calcium 7.7 L D Total Bilirubin 0.8 AST 40 H D ALT 37 Alkaline Phosphatase 74 D Total Protein 5.8 L Albumin 2.2 L D Microbiology Microbiology Results: Microbiology 05/09/22 03:26 Blood Culture - Preliminary Blood - Venous No growth after 24 hours. 05/09/22 03:26 Blood Culture - Preliminary Blood - Venous No growth after 24 hours. Assessment and Plan (1) Opioid withdrawal: Status: Acute (2) Polysubstance abuse: Status: Acute (3) Pneumonia: Status: Acute (4) Pleural effusion: Status: Acute Plan hospital d#2 31yo M with history of injection heroin + cocaine abuse presenting with cough, dyspnea, and tactile fever and found to have pneumonia with small pleural effusion. # PNA - d#2 ceftriaxone + vancomycin given MRSA risk factor and heart murmur which has not previously been noted, monitor BCx, trend PCT which was 1.74 yesterday, HIV serology pending # hypoK - repleted # opioid withdrawal/disorder - started on methadone by Addiction Medicine # cocaine abuse - CARE Team, screen HBV/HCV/HIV # VTE ppx: LMWH In my clinical judgment, the patient requires continued hospitalization for the following reasons: IV ABX Quality Stroke Does the patient have a stroke diagnosis?: No VTE Prior VTE?: No VTE Risk Level:: Medical - moderate - high VTE Device Contraindication: N/A - Device Ordered VTE Drug Contraindication: N/A - Med Ordered
[2022-05-10] MEDS: vancomycin HCL 1,250 MG in 0.9 % Sodium Chloride 250 ML 166.67 MG IV ×2 (12:00→22:34)
[2022-05-10] MEDS: Enoxaparin Sodium 40 MG/0.4 ML SYRINGE SUBCUT (12:01)
--- NOTE | 2022-05-10 12:13 | PC.NURSE ---
has continued to sleep most of the day. tachipnic in his sleep. awake to have icecream. axox3.
--- NOTE | 2022-05-10 13:55 | HO.ADDICTPRO ---
Subjective Subjective Date of Service: 05/10/22 Reason For Visit: Pneumonia, heart murmurs, IVDA Interim History: Patient seen in follow up. Chart reviewed--noted to be c/o of withdrawal sx overnight. Methadone 40mg today. Patient ill, sleeping most of the night and day. (per chart review)Febrile overnight Eyes closed when seen by this mortgage loan underwriter, but answering yes or no Reports methadone has helped withdrawal sx. Review of Systems Acute medical concerns: Yes Medical Review of Systems: unchanged Mental Status Exam Mental Status Exam Patient Appearance: Fatigued (ill appearing ) Level of Consciousness: Lethargic Diagnostics Vital Signs (24Hr): Vital Signs - 24 hr 05/09/22 22:51 05/09/22 23:20 05/10/22 00:38 Temperature 102.4 F H 99.3 F Pulse Rate 64 Respiratory Rate 24 H Blood Pressure 129/83 Pulse Oximetry 96 Oxygen Delivery Method Room Air 05/10/22 00:55 05/10/22 04:02 05/10/22 04:23 Temperature 99.4 F 99.3 F Pulse Rate 77 75 Respiratory Rate 18 37 H Blood Pressure 121/78 120/69 Pulse Oximetry 97 98 Oxygen Delivery Method Room Air Room Air 05/10/22 08:06 05/10/22 10:48 05/10/22 12:13 Temperature 99.0 F 98.9 F Pulse Rate 83 79 82 Respiratory Rate 27 H 22 H 34 H Blood Pressure 122/72 115/67 114/70 Pulse Oximetry 96 96 97 Oxygen Delivery Method Room Air Room Air Room Air BMI result Body Mass Index 21.5 Labs Results: 05/10/22 06:11 05/10/22 06:11 Labs: Laboratory Results - last 48 hr 05/09/22 05/09/22 05/09/22 02:59 03:26 03:26 WBC 21.3 H RBC 4.27 L Hgb 12.0 L Hct 35.2 L MCV 82.4 MCH 28.1 MCHC 34.1 RDW 12.0 Plt Count 471 H D MPV 9.3 L Immature Gran % (Auto) 3.5 H Neut % (Auto) 80.4 H Lymph % (Auto) 8.6 L [place] % (Auto) 7.0 Eos % (Auto) 0.3 Baso % (Auto) 0.2 Lymph # (Auto) 1.8 [place] # (Auto) 1.5 H Eos # (Auto) 0.1 Baso # (Auto) 0.0 Abs Immat Gran (auto) 0.74 H Absolute Neuts (auto) 17.1 H Absolute Nucleated RBC 0.000 Nucleated RBC % (auto) 0.0 Sodium 135 Potassium 3.1 L Chloride 94 L Carbon Dioxide 28 Anion Gap 16 BUN 6 L Creatinine 0.79 Estim Creat Clear Calc 131.5 Estimated GFR > 60 Random Glucose 124 H Lactic Acid Calcium 8.3 L D Magnesium 2.2 Total Bilirubin 0.8 Direct Bilirubin 0.5 AST 72 H ALT 48 H Alkaline Phosphatase 110 Total Protein 7.2 Albumin 2.9 L D Procalcitonin Urine Color Urine Appearance Urine pH Ur Specific [place] Urine Protein Urine Glucose (UA) Urine Ketones Urine Blood Urine Nitrite Ur Leukocyte Esterase Urine Opiates Screen Urine Fentanyl Screen Ur Barbiturates Screen Ur Phencyclidine Scrn Ur Amphetamines Screen U Benzodiazepines Scrn Urine Cocaine Screen U Marijuana (THC) Screen Ethyl Alcohol < 10 COVID-19 (CARLOS) Negative COVID-19 [place] Com See Note 05/09/22 05/09/22 05/09/22 03:26 03:26 06:05 WBC RBC Hgb Hct MCV MCH MCHC RDW Plt Count MPV Immature Gran % (Auto) Neut % (Auto) Lymph % (Auto) [place] % (Auto) Eos % (Auto) Baso % (Auto) Lymph # (Auto) [place] # (Auto) Eos # (Auto) Baso # (Auto) Abs Immat Gran (auto) Absolute Neuts (auto) Absolute Nucleated RBC Nucleated RBC % (auto) Sodium Potassium Chloride Carbon Dioxide Anion Gap BUN Creatinine Estim Creat Clear Calc Estimated GFR Random Glucose Lactic Acid 1.3 Calcium Magnesium Total Bilirubin Direct Bilirubin AST ALT Alkaline Phosphatase Total Protein Albumin Procalcitonin 1.74 Urine Color YELLOW Urine Appearance CLEAR Urine pH 6.5 Ur Specific [place] <= 1.005 Urine Protein NEG Urine Glucose (UA) NEG Urine Ketones NEG Urine Blood NEG Urine Nitrite NEG Ur Leukocyte Esterase NEG Urine Opiates Screen Urine Fentanyl Screen Ur Barbiturates Screen Ur Phencyclidine Scrn Ur Amphetamines Screen U Benzodiazepines Scrn Urine Cocaine Screen U Marijuana (THC) Screen Ethyl Alcohol COVID-19 (CARLOS) COVID-19 Clin Com 05/09/22 05/09/22 05/10/22 06:05 23:57 06:11 WBC RBC Hgb Hct MCV MCH MCHC RDW Plt Count MPV Immature Gran % (Auto) Neut % (Auto) Lymph % (Auto) [place] % (Auto) Eos % (Auto) Baso % (Auto) Lymph # (Auto) [place] # (Auto) Eos # (Auto) Baso # (Auto) Abs Immat Gran (auto) Absolute Neuts (auto) Absolute Nucleated RBC Nucleated RBC % (auto) Sodium 135 Potassium 3.6 Chloride 99 Carbon Dioxide 25 Anion Gap 15 BUN 7 L Creatinine 0.59 Estim Creat Clear Calc 176.1 Estimated GFR > 60 Random Glucose 103 Lactic Acid 0.8 Calcium 7.7 L D Magnesium Total Bilirubin 0.8 Direct Bilirubin AST 40 H D ALT 37 Alkaline Phosphatase 74 D Total Protein 5.8 L Albumin 2.2 L D Procalcitonin Urine Color Urine Appearance Urine pH Ur Specific [place] Urine Protein Urine Glucose (UA) Urine Ketones Urine Blood Urine Nitrite Ur Leukocyte Esterase Urine Opiates Screen POSITIVE H Urine Fentanyl Screen POSITIVE H Ur Barbiturates Screen Not Detected Ur Phencyclidine Scrn Not Detected Ur Amphetamines Screen Not Detected U Benzodiazepines Scrn Not Detected Urine Cocaine Screen POSITIVE H U Marijuana (THC) Screen Not Detected Ethyl Alcohol COVID-19 (CARLOS) COVID-19 Clin Com 05/10/22 06:11 WBC 23.9 H RBC 4.02 L Hgb 11.2 L Hct 32.1 L MCV 79.9 L MCH 27.9 MCHC 34.9 RDW 12.0 Plt Count 511 H MPV 9.4 Immature Gran % (Auto) Neut % (Auto) Lymph % (Auto) [place] % (Auto) Eos % (Auto) Baso % (Auto) Lymph # (Auto) [place] # (Auto) Eos # (Auto) Baso # (Auto) Abs Immat Gran (auto) Absolute Neuts (auto) Absolute Nucleated RBC 0.000 Nucleated RBC % (auto) 0.0 Sodium Potassium Chloride Carbon Dioxide Anion Gap BUN Creatinine Estim Creat Clear Calc Estimated GFR Random Glucose Lactic Acid Calcium Magnesium Total Bilirubin Direct Bilirubin AST ALT Alkaline Phosphatase Total Protein Albumin Procalcitonin Urine Color Urine Appearance Urine pH Ur Specific [place] Urine Protein Urine Glucose (UA) Urine Ketones Urine Blood Urine Nitrite Ur Leukocyte Esterase Urine Opiates Screen Urine Fentanyl Screen Ur Barbiturates Screen Ur Phencyclidine Scrn Ur Amphetamines Screen U Benzodiazepines Scrn Urine Cocaine Screen U Marijuana (THC) Screen Ethyl Alcohol COVID-19 (CARLOS) COVID-19 Clin Com Imaging Radiology Impressions: ITS Impressions Chest X-Ray 05/09/22 03:00 IMPRESSION: Small right pleural effusion. Airspace opacity could be atelectasis or pneumonia. Chest X-Ray 05/09/22 21:55 IMPRESSION: 1.Right IJ catheter tip at the caval atrial junction in superior vena cava. No pneumothorax. 2. Persistent dense right lung base with right pleural effusion. Medications Medications Current Medications Acetaminophen (Acetaminophen 325 Mg Tablet) 650 mg PO Q6H PRN PRN Reason: Pain, Mild (Pain Scale 1-3) Last Admin: 05/09/22 23:23 Dose: 650 mg Clonidine HCl (Clonidine Hcl 0.1 Mg Tablet) 0.1 mg PO TID PRN; Protocol PRN Reason: katya Last Admin: 05/10/22 04:05 Dose: 0.1 mg Doxycycline Hyclate (Doxycycline Hyclate 100 Mg Tablet) 100 mg PO Q12H [facility] Last Admin: 05/10/22 08:38 Dose: 100 mg Enoxaparin Sodium (Enoxaparin Sodium 40 Mg/0.4 Ml Syringe) 40 mg SUBCUT Q24H [facility] Last Admin: 05/10/22 12:01 Dose: 40 mg Ceftriaxone Sodium 1 gm/ (Sodium Chloride) 50 mls @ 100 mls/hr IV Q24H [facility] Last Infusion: 05/10/22 09:30 Dose: Infused Vancomycin HCl 1,250 mg/ (Sodium Chloride) 250 mls @ 166.667 mls/hr IV Q12H [facility] Last Admin: 05/10/22 12:00 Dose: 166.67 mls/hr Methadone HCl (Methadone Hcl 20 Mg/2 Ml Oral.Conc) 50 mg PO DAILY [facility] Ondansetron HCl (Ondansetron Hcl 4 Mg/2 Ml Vial) 4 mg IVPUSH Q8H PRN PRN Reason: Nausea and Vomiting Sodium Chloride (0.9 % Sodium Chloride Flush 3 Ml Syringe) 3 ml IVFLUSH QSHIFT [facility] Last Admin: 05/10/22 08:38 Dose: Not Given Allergies Allergies Allergy/AdvReac Type Severity Reaction Status Date / Time No Known Allergies Allergy Verified 05/09/22 01:10 [No Known Allergies*] Assessment & Plan Assessment & Plan (1) Opioid withdrawal: Status: Acute Code(s): F11.93 - Opioid use, unspecified with withdrawal Assessment and Plan: Methadone 50mg tomorrow will follow up in AM in inquire about desire to continue dose titration--if so, will start referral to OTP I spent ____15__ minutes with the patient and/or on the patient floor today, greater than?50% of which was spent counseling/coordinating care.
--- NOTE | 2022-05-10 16:47 | PC.NURSE ---
reba [place] with tiffany.
[2022-05-10] MEDS: 0.9 % Sodium Chloride Flush 3 ML SYRINGE IVFLUSH ×2 (17:24→22:39)
[2022-05-10] MEDS: Acetaminophen 325 MG TABLET 650 MG PO (20:31)
[2022-05-11] MEDS: Acetaminophen 325 MG TABLET 650 MG PO ×2 (02:57→19:38)
[2022-05-11 03:18] VITALS: BP 130/65; PULSE 83; RESP 18; TEMP 37.6; O2SAT 98
[2022-05-11 03:41] LABS: HBS Num1 15.51 mIU/mL (0-7.99); HBc Num1 0.32 S/CO (0.00-0.79); HBsAGNum1 0.24 S/CO (0.00-0.99); HIV AB/AG Nonreactive (Nonreactive); Hepatitis B Core Antibody Nonreactive (Nonreactive); Hepatitis B Surface Antigen Negative (Negative); ~Hepatitis B Surface Antibody REACTIVE (Nonreactive); ~Hepatitis C Antibody Reactive (Nonreactive)
[2022-05-11 05:49] LABS: Hematocrit 31.2 % (42.0-52.0); Hemoglobin 10.7 g/dl (14.0-18.0); Mean Corpuscular HGB Conc 34.3 g/dl (31.0-36.0); Mean Corpuscular Hemoglobin 27.7 pg (27.0-33.0); Mean Corpuscular Volume 80.8 fL (80.0-98.0); Mean Platelet Volume 9.3 fL (9.4-12.4); Platelet Count 479 X10*3/uL (160-400); Red Blood Count 3.86 X10*6/uL (4.60-5.80); Red Cell Distribution Width 12.2 % (11.0-16.0); White Blood Count 21.1 X10*3/uL (4.8-10.8)
[2022-05-11 06:13] LABS: Creatinine Clr Calc Pharmacy 176.1; Estimated Glomerular Filt Rate > 60
[2022-05-11] MEDS: vancomycin HCL 1,250 MG in 0.9 % Sodium Chloride 250 ML 166.67 MG IV ×3 (06:20→22:40)
[2022-05-11 06:27] LABS: Procalcitonin 0.87 ng/mL
[2022-05-11 07:55] VITALS: BP 137/72; PULSE 89; RESP 19; TEMP 38.2; O2SAT 99
[2022-05-11] MEDS: cefTRIAXone sodium 1 GM in 0.9 % Sodium Chloride 50 ML IV (08:27)
[2022-05-11] MEDS: methADONE HCl 20 MG/2 ML ORAL.CONC 50 MG PO (08:28)
[2022-05-11] MEDS: 0.9 % Sodium Chloride Flush 3 ML SYRINGE IVFLUSH ×2 (08:28→15:59)
[2022-05-11] MEDS: Enoxaparin Sodium 40 MG/0.4 ML SYRINGE SUBCUT (11:49)
[2022-05-11 12:00] VITALS: BP 138/86; PULSE 77; RESP 17; TEMP 37.7; O2SAT 98
[2022-05-11 12:17] LABS: MRSA Nasal PCR NEGATIVE (Negative); SA Nasal PCR NEGATIVE (Negative)
--- NOTE | 2022-05-11 13:22 | P.PNIM_ITS ---
Subjective Subjective Date of Service: 05/11/22 Interval History: no acute issues overnight Review of Systems denies chest pain Denies shortness of breath Denies nausea vomiting diarrhea Denies fever c Physical Exam Vital Signs: Vital Signs: Last Vital Signs Temp 99.9 F 05/11/22 12:00 Pulse 77 05/11/22 12:00 Resp 17 05/11/22 12:00 BP 138/86 05/11/22 12:00 Pulse Ox 98 05/11/22 12:00 O2 Del Method 05/11/22 12:00 BMI result Body Mass Index 21.5 Const: Other: no acute distress Resp: Other: Clear to auscultation bilaterally. No rales rhonchi or wheezes Cardio: Other: no S4; positive S1-S2; no S3. 2/6 systolic murmur best heard over the apex Extrem: Other: no edema bilaterally Objective Data Active Medications Acetaminophen (Acetaminophen 325 Mg Tablet) 650 mg PO Q6H PRN PRN Reason: Pain, Mild (Pain Scale 1-3) Last Admin: 05/11/22 02:57 Dose: 650 mg Documented By: JONNIE Clonidine HCl (Clonidine Hcl 0.1 Mg Tablet) 0.1 mg PO TID PRN; Protocol PRN Reason: katya Last Admin: 05/10/22 20:32 Dose: 0.1 mg Documented By: JONNIE Doxycycline Hyclate (Doxycycline Hyclate 100 Mg Tablet) 100 mg PO Q12H [facility] Last Admin: 05/11/22 08:29 Dose: 100 mg Documented By: CARMEN Enoxaparin Sodium (Enoxaparin Sodium 40 Mg/0.4 Ml Syringe) 40 mg SUBCUT Q24H [facility] Last Admin: 05/11/22 11:49 Dose: 40 mg Documented By: LOAN Ceftriaxone Sodium 1 gm/ (Sodium Chloride) 50 mls @ 100 mls/hr IV Q24H [facility] Last Infusion: 05/11/22 10:12 Dose: 0 mls/hr Documented By: CARMEN Vancomycin HCl 1,250 mg/ (Sodium Chloride) 250 mls @ 166.667 mls/hr IV Q8H [facility] Last Infusion: 05/11/22 08:28 Dose: 0 mls/hr Documented By: CARMEN Methadone HCl (Methadone Hcl 20 Mg/2 Ml Oral.Conc) 50 mg PO DAILY [facility] Last Admin: 05/11/22 08:28 Dose: 50 mg Documented By: CARMEN Ondansetron HCl (Ondansetron Hcl 4 Mg/2 Ml Vial) 4 mg IVPUSH Q8H PRN PRN Reason: Nausea and Vomiting Sodium Chloride (0.9 % Sodium Chloride Flush 3 Ml Syringe) 3 ml IVFLUSH QSHIFT [facility] Last Admin: 05/11/22 08:28 Dose: 3 ml Documented By: CARMEN Labs CBC & Chem 7: 05/11/22 05:35 05/11/22 05:35 Labs: Laboratory Results - last 24 hr 05/10/22 05/10/22 05/10/22 06:11 16:55 21:24 MCV MCH MCHC RDW Plt Count MPV Absolute Nucleated RBC Nucleated RBC % (auto) Estim Creat Clear Calc Estimated GFR Procalcitonin Nasal Screen MRSA (PCR) NEGATIVE Nasal S. aureus Screen NEGATIVE Nasal MRSA/S.aureus Interp SEE NOTE Vancomycin Trough 6.0 L Hep Bs Antigen Negative Hep Bs Antibody REACTIVE Hep B Core Total Ab Nonreactive Hepatitis C Ab (EIA) Reactive H HIV 1&2 Ab/P24 Ag 4thGn Nonreactive 05/11/22 05/11/22 05/11/22 05:35 05:35 05:35 MCV 80.8 MCH 27.7 MCHC 34.3 RDW 12.2 Plt Count 479 H MPV 9.3 L Absolute Nucleated RBC 0.000 Nucleated RBC % (auto) 0.0 Estim Creat Clear Calc 176.1 Estimated GFR > 60 Procalcitonin 0.87 Nasal Screen MRSA (PCR) Nasal S. aureus Screen Nasal MRSA/S.aureus Interp Vancomycin Trough Hep Bs Antigen Hep Bs Antibody Hep B Core Total Ab Hepatitis C Ab (EIA) HIV 1&2 Ab/P24 Ag 4thGn Microbiology Microbiology Results: Microbiology 05/09/22 03:26 Blood Culture - Preliminary Blood - Venous No growth after 48 hours. 05/09/22 03:26 Blood Culture - Preliminary Blood - Venous No growth after 48 hours. Assessment and Plan (1) Pneumonia: Status: Acute (2) Opioid withdrawal: Status: Acute (3) Polysubstance abuse: Status: Acute Plan 31yo M with history of injection heroin + cocaine abuse presenting with cough, dyspnea, and tactile fever and found to have pneumonia with small pleural effusion. 1.Pneumonia -Ceftriaxone/Vancomycin(3) given MRSA risk factor - blood cultures negative thus far 2.Hypokalemia - repleted, recheck level in AM 3.Opioid withdrawal/disorder - start methadone as per Addiction Medicine heparin Full code patient will require ongoing hospitalization for IV antibiotics to treat pneumonia Quality Stroke Does the patient have a stroke diagnosis?: No VTE Prior VTE?: No VTE Risk Level:: Medical - moderate - high VTE Device Contraindication: N/A - Device Ordered VTE Drug Contraindication: N/A - Med Ordered
--- NOTE | 2022-05-11 14:10 | P.PNADD_ITS ---
Subjective Subjective Date of Service: 05/11/22 Reason For Visit: Pneumonia, heart murmurs, IVDA Interim History: Patient seen in follow up Methadone dose up to 50mg today Eyes closed upon arrival, but easily awoken. Able to engage in interview today. Reporting withdrawal sx are much improved, but states that overnight he feels chills again (? if this is actually related to patient being febrile vs withdrawal) Appetite improving Discussed goals related to continuation of methadone. He reports he would like to continue with methadone and prefers [facility]TP on [facility] Review of Systems Acute medical concerns: Yes Medical Review of Systems: unchanged Mental Status Exam Mental Status Exam Patient Appearance: Fatigued Level of Consciousness: Awake and Appropriate Mood Description: Calm Patient Cognition Impaired: No Ability to Follow Directions: Excellent Judgement: Fair Diagnostics Vital Signs (24Hr): Vital Signs - 24 hr 05/10/22 17:40 05/10/22 19:52 05/10/22 20:01 Temperature 99.4 F 100.3 F Pulse Rate 90 90 Respiratory Rate 18 18 Blood Pressure 133/72 130/68 Pulse Oximetry 95 98 Oxygen Delivery Method Room Air Room Air 05/10/22 21:52 05/10/22 23:29 05/11/22 03:18 Temperature 99.2 F 100.2 F 99.6 F Pulse Rate 80 83 Respiratory Rate 18 18 Blood Pressure 128/64 130/65 Pulse Oximetry 96 98 Oxygen Delivery Method Room Air Room Air 05/11/22 07:55 05/11/22 12:00 Temperature 100.7 F H 99.9 F Pulse Rate 89 77 Respiratory Rate 19 17 Blood Pressure 137/72 138/86 Pulse Oximetry 99 98 Oxygen Delivery Method Room Air Room Air BMI result Body Mass Index 21.5 Labs Results: 05/11/22 05:35 05/11/22 05:35 Labs: Laboratory Results - last 48 hr 05/09/22 05/10/22 05/10/22 23:57 06:11 06:11 WBC 23.9 H RBC 4.02 L Hgb 11.2 L Hct 32.1 L MCV 79.9 L MCH 27.9 MCHC 34.9 RDW 12.0 Plt Count 511 H MPV 9.4 Absolute Nucleated RBC 0.000 Nucleated RBC % (auto) 0.0 Sodium 135 Potassium 3.6 Chloride 99 Carbon Dioxide 25 Anion Gap 15 BUN 7 L Creatinine 0.59 Estim Creat Clear Calc 176.1 Estimated GFR > 60 Random Glucose 103 Lactic Acid 0.8 Calcium 7.7 L D Total Bilirubin 0.8 AST 40 H D ALT 37 Alkaline Phosphatase 74 D Total Protein 5.8 L Albumin 2.2 L D Procalcitonin Nasal Screen MRSA (PCR) Nasal S. aureus Screen Nasal MRSA/S.aureus Interp Vancomycin Trough Hep Bs Antigen Hep Bs Antibody Hep B Core Total Ab Hepatitis C Ab (EIA) HIV 1&2 Ab/P24 Ag 4thGn 05/10/22 05/10/22 05/10/22 06:11 16:55 21:24 WBC RBC Hgb Hct MCV MCH MCHC RDW Plt Count MPV Absolute Nucleated RBC Nucleated RBC % (auto) Sodium Potassium Chloride Carbon Dioxide Anion Gap BUN Creatinine Estim Creat Clear Calc Estimated GFR Random Glucose Lactic Acid Calcium Total Bilirubin AST ALT Alkaline Phosphatase Total Protein Albumin Procalcitonin Nasal Screen MRSA (PCR) NEGATIVE Nasal S. aureus Screen NEGATIVE Nasal MRSA/S.aureus Interp SEE NOTE Vancomycin Trough 6.0 L Hep Bs Antigen Negative Hep Bs Antibody REACTIVE Hep B Core Total Ab Nonreactive Hepatitis C Ab (EIA) Reactive H HIV 1&2 Ab/P24 Ag 4thGn Nonreactive 05/11/22 05/11/22 05/11/22 05:35 05:35 05:35 WBC 21.1 H RBC 3.86 L Hgb 10.7 L Hct 31.2 L MCV 80.8 MCH 27.7 MCHC 34.3 RDW 12.2 Plt Count 479 H MPV 9.3 L Absolute Nucleated RBC 0.000 Nucleated RBC % (auto) 0.0 Sodium Potassium Chloride Carbon Dioxide Anion Gap BUN Creatinine 0.59 Estim Creat Clear Calc 176.1 Estimated GFR > 60 Random Glucose Lactic Acid Calcium Total Bilirubin AST ALT Alkaline Phosphatase Total Protein Albumin Procalcitonin 0.87 Nasal Screen MRSA (PCR) Nasal S. aureus Screen Nasal MRSA/S.aureus Interp Vancomycin Trough Hep Bs Antigen Hep Bs Antibody Hep B Core Total Ab Hepatitis C Ab (EIA) HIV 1&2 Ab/P24 Ag 4thGn Imaging Radiology Impressions: ITS Impressions Chest X-Ray 05/09/22 03:00 IMPRESSION: Small right pleural effusion. Airspace opacity could be atelectasis or pneumonia. Chest X-Ray 05/09/22 21:55 IMPRESSION: 1.Right IJ catheter tip at the caval atrial junction in superior vena cava. No pneumothorax. 2. Persistent dense right lung base with right pleural effusion. Medications Medications Current Medications Acetaminophen (Acetaminophen 325 Mg Tablet) 650 mg PO Q6H PRN PRN Reason: Pain, Mild (Pain Scale 1-3) Last Admin: 05/11/22 02:57 Dose: 650 mg Clonidine HCl (Clonidine Hcl 0.1 Mg Tablet) 0.1 mg PO TID PRN; Protocol PRN Reason: katya Last Admin: 05/10/22 20:32 Dose: 0.1 mg Doxycycline Hyclate (Doxycycline Hyclate 100 Mg Tablet) 100 mg PO Q12H [facility] Last Admin: 05/11/22 08:29 Dose: 100 mg Enoxaparin Sodium (Enoxaparin Sodium 40 Mg/0.4 Ml Syringe) 40 mg SUBCUT Q24H [facility] Last Admin: 05/11/22 11:49 Dose: 40 mg Ceftriaxone Sodium 1 gm/ (Sodium Chloride) 50 mls @ 100 mls/hr IV Q24H [facility] Last Infusion: 05/11/22 10:12 Dose: Infused Vancomycin HCl 1,250 mg/ (Sodium Chloride) 250 mls @ 166.667 mls/hr IV Q8H [facility] Last Infusion: 05/11/22 08:28 Dose: Infused Methadone HCl (Methadone Hcl 20 Mg/2 Ml Oral.Conc) 50 mg PO DAILY [facility] Last Admin: 05/11/22 08:28 Dose: 50 mg Ondansetron HCl (Ondansetron Hcl 4 Mg/2 Ml Vial) 4 mg IVPUSH Q8H PRN PRN Reason: Nausea and Vomiting Sodium Chloride (0.9 % Sodium Chloride Flush 3 Ml Syringe) 3 ml IVFLUSH QSHIFT [facility] Last Admin: 05/11/22 08:28 Dose: 3 ml Allergies Allergies Allergy/AdvReac Type Severity Reaction Status Date / Time No Known Allergies Allergy Verified 05/09/22 01:10 [No Known Allergies*] Assessment & Plan Assessment & Plan (1) Opioid use disorder: Status: Acute Code(s): F11.90 - Opioid use, unspecified, uncomplicated Assessment and Plan: * methadone 55mg tomorrow * continue to follow * RS RN coordinating referral to [facility] for continuation of treatment I spent _25 minutes with the patient and/or on the patient floor today, greater than?50% of which was spent counseling/coordinating care.
--- NOTE | 2022-05-11 16:00 | CA_ITS ---
Transthoracic Echocardiogram Patient (Last, First, Middle): Matthew Jett, Gender: Male Date of : 1990 Age: 31 Procedure Date: 05/11/2022 Procedure Type: Transthoracic Echocardiogram Location: S3E Height: 177.8 cm Weight: 68.04 kg BSA: 1.85 m2 Heart Rate: bpm BP: 138 / 86 mmHg [facility] Supervisor: Referring MD: Jaden Galindo DO Symptoms: New murmur..IVDA Study Quality: Fair ECG Rhythm: Sinus Conclusions: - 0.46 cm mobile density noted on the right aortic valve cusp. Differentials include vegetation versus clot. - Normal left ventricular size, thickness, systolic function, and wall motion. The visually estimated ejection fraction is between 55-60%. Diastolic function is normal for age. - Normal right ventricular cavity size and systolic function. Findings Left Ventricle Normal left ventricular size, thickness, systolic function, and wall motion. The visually estimated ejection fraction is between 55-60%. Diastolic function is normal for age. Right Ventricle Normal right ventricular cavity size and systolic function. Atria The left atrium is mildly dilated. Aortic Valve There is a normal trileaflet aortic valve. There is no aortic valve stenosis. There is no aortic valve regurgitation. 0.46 cm mobile density noted on the right aortic valve cusp. Differentials include vegetation versus clot. Mitral Valve Normal mitral valve structure and function. There is trace mitral valve regurgitation. There is no mitral valve stenosis. Pulmonic Valve Normal pulmonic valve structure and function. There is no pulmonic valve regurgitation. Tricuspid Valve Likely normal tricuspid valve structure and function. Normal right atrial pressure. There is no evidence of pulmonary hypertension. Great Vessels All visible segments of the aorta are normal in size. The visualized portions of the pulmonary artery and branches are normal. Venous The inferior vena cava is normal in size and collapses greater than 50% with inspiration. Pericardium/Pleural There is no evidence of pericardial effusion. Prior Study Comparison No prior study available for comparison. Measurements 2D Linear Measurements IVSd: 0.86 0.6-0.9/0.6-1.0 cm LVIDd: 5.14 3.9-5.3/4.2-5.9 cm LVIDd Index: 2.78 2.4-3.2/2.2-3.1 cm/m2 LVIDs: 3.23 2.0-3.6 cm LVPWd: 0.84 0.7-1.1 cm LA Diam: 4.10 2.7-3.8/3.0-4.0 cm LAIDs Index: 2.22 1.5-2.3 cm/m2 LV Mass: 191.59 67-162/88-224 g LV Mass Index: 103.56 43-95/49-115 g/m2 LVOT Diam: 2.30 3.0+(-)1.3 cm Mitral Valve MV Pk E: 1.09 MV PK A: 0.80 MV Decel Time: 122.00 E/A: 1.40 E'Lateral: 19.50 E'Medial: 11.40 E/E' Med: 9.60 E/E' Lat: 5.60 PHT: 36.00 MVA PHT: 6.11 Decel Pettis: 8.92 Aortic Valve AoV Pk Gaetano: 1.71 AoV Mn Gaetano: 1.12 AoV VTI: 0.34 AoV Pk Grad: 12.00 Aov Mn Grad: 6.00 RHIANNON Cont.VTI: 2.55 LVOT LVOT Pk Gaetano: 1.03 LVOT Mn Gaetano: 0.71 LVOT VTI: 0.21 LVOT Pk Grad: 4.00 LVOT Mn Grad: 2.00 LVOT Diam: 2.30 LVOT Area: 4.15 Diastolic Function MV Pk E: 1.09 MV Pk A: 0.80 E/A: 1.40 E'Medial: 11.40 E/E' Med: 9.60 E' Laterial: 19.50 E/E' Lat: 5.60 Tricuspid Valve TR Pk Gaetano: 2.20 TR Pk Grad: 19.00 RA Press: 3.00 RVSP: 22.00 Pulmonary Valve PV Pk Gaetano: 1.48 Peak PV Grad: 9.00 Updated in Other Vendor System with Status of Final Chaparro Little MD electronically signed on 05/12/2022 3:24:09 PM with status of Final
[2022-05-11 16:09] VITALS: BP 141/79; PULSE 80; TEMP 37.1; O2SAT 100
[2022-05-11 19:34] VITALS: BP 133/77; PULSE 86; RESP 22; TEMP 37.8; O2SAT 96
[2022-05-11] MEDS: cloNIDine HCL 0.1 MG TABLET PO (20:30)
[2022-05-11 22:01] LABS: Vancomycin Trough 14.6 mcg/mL (10.0-20.0)
--- NOTE | 2022-05-11 22:11 | HE.PHANOTE ---
Vancomycin Dosing Addendum Vancomycin Trough 14.6. Continue with current regimen. Next trough 05/12/22 @2100
[2022-05-11 23:46] VITALS: BP 125/62; PULSE 87; RESP 17; TEMP 37.4; O2SAT 95
[2022-05-12] MEDS: 0.9 % Sodium Chloride Flush 3 ML SYRINGE IVFLUSH ×3 (00:21→16:12)
[2022-05-12 03:50] VITALS: BP 132/67; PULSE 91; RESP 20; TEMP 37.5; O2SAT 94
[2022-05-12] MEDS: cloNIDine HCL 0.1 MG TABLET PO (04:02)
[2022-05-12] MEDS: Acetaminophen 325 MG TABLET 650 MG PO ×2 (04:02→16:12)
[2022-05-12] MEDS: vancomycin HCL 1,250 MG in 0.9 % Sodium Chloride 250 ML 166.67 MG IV (06:34)
[2022-05-12 07:40] VITALS: BP 130/80; PULSE 72; RESP 18; TEMP 37.5; O2SAT 96
[2022-05-12 08:07] LABS: MANUAL DIFF FLAG NO
[2022-05-12 08:10] LABS: Basophils Percent Auto 0.2 % (0-2); Eosinophils Percent Auto 0.1 % (0-4); Hematocrit 31.6 % (42.0-52.0); Hemoglobin 10.7 g/dl (14.0-18.0); Imm Gran Abs Auto 0.37 X10*3/uL (0.00-0.03); Imm Gran Pct Auto 1.7 % (0.0-0.4); Lymphocytes Absolute Auto 2.2 X10*3/uL (1.2-4.9); Mean Corpuscular HGB Conc 33.9 g/dl (31.0-36.0); Mean Corpuscular Hemoglobin 27.6 pg (27.0-33.0); Mean Corpuscular Volume 81.4 fL (80.0-98.0); Mean Platelet Volume 9.1 fL (9.4-12.4); Monocytes Absolute Auto 1.4 X10*3/uL (0.1-1.2); Monocytes Percent Auto 6.5 % (2-11); Neutrophils Absolute Auto 18.1 x10*3/uL (2.0-8.3); Neutrophils Percent Auto 81.5 % (45-73); Platelet Count 445 X10*3/uL (160-400); Red Blood Count 3.88 X10*6/uL (4.60-5.80); Red Cell Distribution Width 12.5 % (11.0-16.0); White Blood Count 22.2 X10*3/uL (4.8-10.8)
--- NOTE | 2022-05-12 08:18 | P.CDIC_ITS ---
CDI Concurrent Query Documentation Clarification: PHYSICIAN'S DOCUMENTATION REQUEST Date of Query: 05/12/22817 Patient Name: Matthew Jett Admit Date: 05/09/22 Dear Doctor, A review of the medical record indicates additional documentation may be needed. Please review below and update the documentation accordingly. Clinical Indicators: Risk Factors/Clinical Indicators/Treatments WBC 21.3 Temp 102.4 HR 104 RR 36 IV Vancomycin, Zosyn, Tazobactam, IV KCI Dx. Pneumonia Please clarify which, if any, of the following is the most likely etiology of the above symptoms and treatment rendered: Sepsis due to pneumonia or other etiology if treating. * Sepsis * Systemic manifestations of infection, with 2 or more SIRS criteria which include: - Fever > 100.4F or hypothermia < 96.8 F - Leukocytosis - WBC > 12,000 or leukopenia, WBC < 4,000 or > 10% bands - Tachycardia > 90 beats/minute - Tachypnea - RR > 20 breaths/minute or PaCO2 < 32mmHg (Source: Merck Manual 2013) * Indicate the known or suspected organism * Indicate the known or suspected underlying infection, such as UTI, pneumonia, or cellulitis * Indicate if a suspected bacterial infection of unknown source * Indicate if associated with an implanted device such as a F/C, PICC line, orthopedic hardware, etc. * Severe Sepsis * Sepsis with associated acute organ dysfunction, such as renal or respiratory failure * Documentation should indicate the association between the sepsis and the organ dysfunction * Other (please specify) * Unable to determine Use of terms such as suspected, likely, concern for, or probable (associated with a specific diagnosis that is being evaluated, monitored, or treated as if it exists) are acceptable and can be coded in the inpatient setting, when documented at the time of discharge. Thank you, Natalie Easley [facility], CDIS Extension: [phone] Please use your independent medical judgment in providing your response. THIS QUERY IS PART OF THE PERMANENT MEDICAL RECORD Provider Response: Other Other Diagnosis: sepsis on admission related to pneumonia
[2022-05-12 08:46] LABS: Carbon Dioxide 25 mmol/L (22-29); Chloride 103 mmol/L (96-108); Potassium 3.4 mmol/L (3.3-5.1); Sodium 138 mmol/L (135-145)
[2022-05-12 08:47] LABS: Alanine Aminotransferase 39 U/L (0-40); Albumin Level 1.9 g/dL (3.5-5.0); Alkaline Phosphatase 70 U/L (39-117); Anion Gap 13 (12-20); Aspartate Amino Transferase 37 U/L (5-37); Bilirubin Total 0.4 mg/dL (0.0-1.0); Blood Urea Nitrogen 6 mg/dL (9-16); Calcium 7.5 mg/dL (8.4-10.2); Creatinine Clr Calc Pharmacy 167.6; Estimated Glomerular Filt Rate > 60; Glucose Fasting 144 mg/dL (60-99); Total Protein 5.9 g/dL (6.5-8.0)
[2022-05-12] MEDS: methADONE HCl 20 MG/2 ML ORAL.CONC 55 MG PO (09:05)
[2022-05-12] MEDS: cefTRIAXone sodium 1 GM in 0.9 % Sodium Chloride 50 ML IV (09:37)
--- NOTE | 2022-05-12 11:10 | MHC.CDI.CONC ---
CDI Concurrent Query Documentation Clarification: PHYSICIAN'S DOCUMENTATION REQUEST Date of Query: 05/12/22 1110 Patient Name: Matthew Jett Admit Date: 05/09/22 Dear Doctor, A review of the medical record indicates additional documentation may be needed. Please review below and update the documentation accordingly. Clinical Indicators: The diagnosis of [Diagnosis] was documented on [date] but is not consistently noted in subsequent documentation. Risk Factors/Clinical Indicators/Treatments Ed: 05/11 - probably has endocarditis, new murmur which is new, fever, dyspnea, tactile fever. Temp 102.4 RR 36 WBC 21.3 HR 104 IV Vancomycin, Zosyn, Tazobactam, IV KCI Clinical impression: Endocarditis, suspected. Please clarify the following: Endocarditis [Diagnosis] was present on admission and is now resolved [Diagnosis] was present on admission and is still being monitored, evaluated, or treated [Diagnosis] was ruled out [Diagnosis] is still a likely, suspected, probable diagnosis Other (please specify) Unable to determine Use of terms such as suspected, likely, concern for, or probable (associated with a specific diagnosis that is being evaluated, monitored, or treated as if it exists) are acceptable and can be coded in the inpatient setting, when documented at the time of discharge. Thank you, Natalie Easley [facility], CDIS Extension: [phone] Please use your independent medical judgment in providing your response. THIS QUERY IS PART OF THE PERMANENT MEDICAL RECORD Provider Response: Other Other Diagnosis: endocarditis was ruled out by blood cultures
[2022-05-12 12:00] VITALS: BP 143/73; PULSE 70; RESP 17; TEMP 37.3; O2SAT 95
--- NOTE | 2022-05-12 12:14 | P.PNIM_ITS ---
Subjective Subjective Date of Service: 05/12/22 Interval History: no acute issues overnight Review of Systems denies chest pain Denies shortness of breath Denies nausea vomiting diarrhea Denies fever c Physical Exam Vital Signs: Vital Signs: Last Vital Signs Temp 99.5 F 05/12/22 07:40 Pulse 72 05/12/22 07:40 Resp 18 05/12/22 07:40 BP 130/80 05/12/22 07:40 Pulse Ox 96 05/12/22 07:40 O2 Del Method 05/12/22 07:40 BMI result Body Mass Index 21.5 Const: Other: no acute distress Resp: Other: Clear to auscultation bilaterally. No rales rhonchi or wheezes Cardio: Other: no S4; positive S1-S2; no S3. 2/6 systolic murmur best heard over the apex Extrem: Other: no edema bilaterally Objective Data Active Medications Acetaminophen (Acetaminophen 325 Mg Tablet) 650 mg PO Q6H PRN PRN Reason: Pain, Mild (Pain Scale 1-3) Last Admin: 05/12/22 04:02 Dose: 650 mg Documented By: STEVAN Clonidine HCl (Clonidine Hcl 0.1 Mg Tablet) 0.1 mg PO TID PRN; Protocol PRN Reason: katya Last Admin: 05/12/22 04:02 Dose: 0.1 mg Documented By: STEVAN Doxycycline Hyclate (Doxycycline Hyclate 100 Mg Tablet) 100 mg PO Q12H [facility] Last Admin: 05/12/22 09:05 Dose: 100 mg Documented By: MARY Enoxaparin Sodium (Enoxaparin Sodium 40 Mg/0.4 Ml Syringe) 40 mg SUBCUT Q24H [facility] Last Admin: 05/11/22 11:49 Dose: 40 mg Documented By: LOAN Vancomycin HCl 1,250 mg/ (Sodium Chloride) 250 mls @ 166.667 mls/hr IV Q8H [facility] Last Infusion: 05/12/22 09:38 Dose: 0 mls/hr Documented By: MARY Cefepime HCl 2 gm/ Sodium (Chloride) 50 mls @ 100 mls/hr IV Q8H [facility] Methadone HCl (Methadone Hcl 20 Mg/2 Ml Oral.Conc) 55 mg PO DAILY [facility] Last Admin: 05/12/22 09:05 Dose: 55 mg Documented By: MARY Ondansetron HCl (Ondansetron Hcl 4 Mg/2 Ml Vial) 4 mg IVPUSH Q8H PRN PRN Reason: Nausea and Vomiting Sodium Chloride (0.9 % Sodium Chloride Flush 3 Ml Syringe) 3 ml IVFLUSH QSHIFT [facility] Last Admin: 05/12/22 09:05 Dose: 3 ml Documented By: MARY Labs CBC & Chem 7: 05/12/22 08:04 05/12/22 08:04 Labs: Laboratory Results - last 24 hr 05/10/22 05/11/22 05/12/22 16:55 21:25 08:04 MCV MCH MCHC RDW Plt Count MPV Immature Gran % (Auto) Neut % (Auto) Lymph % (Auto) [place] % (Auto) Eos % (Auto) Baso % (Auto) Lymph # (Auto) [place] # (Auto) Eos # (Auto) Baso # (Auto) Abs Immat Gran (auto) Absolute Neuts (auto) Absolute Nucleated RBC Nucleated RBC % (auto) Anion Gap 13 Estim Creat Clear Calc 167.6 Estimated GFR > 60 Fasting Glucose 144 H Calcium 7.5 L Total Bilirubin 0.4 AST 37 ALT 39 Alkaline Phosphatase 70 Total Protein 5.9 L Albumin 1.9 L Nasal Screen MRSA (PCR) NEGATIVE Nasal S. aureus Screen NEGATIVE Nasal MRSA/S.aureus Interp SEE NOTE Vancomycin Trough 14.6 05/12/22 08:04 MCV 81.4 MCH 27.6 MCHC 33.9 RDW 12.5 Plt Count 445 H MPV 9.1 L Immature Gran % (Auto) 1.7 H Neut % (Auto) 81.5 H Lymph % (Auto) 10.0 L [place] % (Auto) 6.5 Eos % (Auto) 0.1 Baso % (Auto) 0.2 Lymph # (Auto) 2.2 [place] # (Auto) 1.4 H Eos # (Auto) 0.0 Baso # (Auto) 0.0 Abs Immat Gran (auto) 0.37 H Absolute Neuts (auto) 18.1 H Absolute Nucleated RBC 0.000 Nucleated RBC % (auto) 0.0 Anion Gap Estim Creat Clear Calc Estimated GFR Fasting Glucose Calcium Total Bilirubin AST ALT Alkaline Phosphatase Total Protein Albumin Nasal Screen MRSA (PCR) Nasal S. aureus Screen Nasal MRSA/S.aureus Interp Vancomycin Trough Assessment and Plan (1) Pneumonia: Status: Acute (2) Polysubstance abuse: Status: Acute Plan 31yo M with history of injection heroin + cocaine abuse presenting with cough, dyspnea, and tactile fever and found to have pneumonia with small pleural effusion. 1.Pneumonia -Ceftriaxone/Vancomycin/ doxycycline(3) given MRSA risk factor - switch ceftriaxone to cefepime given persistent white count - id consult - blood cultures negative thus far 2.Hypokalemia - repleted, continue to follow 3.Opioid withdrawal/disorder - start methadone as per Addiction Medicine heparin Full code patient will require ongoing hospitalization for IV antibiotics to treat pneumonia Quality Stroke Does the patient have a stroke diagnosis?: No VTE Prior VTE?: No VTE Risk Level:: Medical - moderate - high VTE Device Contraindication: N/A - Device Ordered VTE Drug Contraindication: N/A - Med Ordered
--- NOTE | 2022-05-12 13:16 | MHC.CM.PN ---
PER ROUNDS DISCUSSION, PATIENT IS NOT YET MEDICALLY CLEARED FOR DISCHARGE TODAY R/T NEED FOR IV ANTIBIOTICS TO TREAT PNEUMONIA. DISCHARGE PLAN CONTINUES TO BE HOME vs SA TX vs STR. CM WILL CONTINUE TO FOLLOW FOR DISCHARGE NEEDS.
--- NOTE | 2022-05-12 13:37 | MHC.RECOVSUP ---
T/W met w/ pt, pt lying in bed watching T.V, eyes open. Pt states feels good on the 55 mg Methadone. Pt states very tired. Minimal verbal discussion, few word answers. T/W sent referral to [facility], per pt request to continue Methadone treatment at discharge, made pt aware. Discussed update w/ Alexia Lozano.
--- NOTE | 2022-05-12 13:56 | P.CNID_ITS ---
History of Present Illness Data of Consult Service Date: 05/12/22 Requesting physician: Jaden Galindo Primary Care Provider: Unknown Physician HPI Reason for consult: right sided chest pain and effusion He presents to hospital with right sided 7/10 chest pain. He uses IVDU heroin two bags a day. He is HIV negative and Hepatitis C positive. His temperature is trending down. He is not on oxygen at this moment. Review of Systems Review of Systems: Yes all other systems are reviewed and are negative PMFSH Past Medical History Medical History Polysubstance abuse Family History Family history: reviewed and not pertinent Surgical History Surgical History No history of previous surgery Social History Social History Household Members: None Housing: Homeless Do you presently have visiting nurse or other home services: No Patient Tobacco Use Status: Current someday Tobacco user Substance Use Type: Crack/Cocaine, Heroin and Marijuana service: No Current occupational status: unemployed Meds Allergies Allergy/AdvReac Type Severity Reaction Status Date / Time No Known Allergies Allergy Verified 05/09/22 01:10 [No Known Allergies*] Active Medications: Current Medications Acetaminophen (Acetaminophen 325 Mg Tablet) 650 mg PO Q6H PRN PRN Reason: Pain, Mild (Pain Scale 1-3) Last Admin: 05/12/22 04:02 Dose: 650 mg Clonidine HCl (Clonidine Hcl 0.1 Mg Tablet) 0.1 mg PO TID PRN; Protocol PRN Reason: katya Last Admin: 05/12/22 04:02 Dose: 0.1 mg Doxycycline Hyclate (Doxycycline Hyclate 100 Mg Tablet) 100 mg PO Q12H [facility] Last Admin: 05/12/22 09:05 Dose: 100 mg Enoxaparin Sodium (Enoxaparin Sodium 40 Mg/0.4 Ml Syringe) 40 mg SUBCUT Q24H [facility] Last Admin: 05/11/22 11:49 Dose: 40 mg Vancomycin HCl 1,250 mg/ (Sodium Chloride) 250 mls @ 166.667 mls/hr IV Q8H [facility] Last Infusion: 05/12/22 09:38 Dose: Infused Cefepime HCl 2 gm/ Sodium (Chloride) 50 mls @ 100 mls/hr IV Q8H [facility] Methadone HCl (Methadone Hcl 20 Mg/2 Ml Oral.Conc) 55 mg PO DAILY [facility] Last Admin: 05/12/22 09:05 Dose: 55 mg Ondansetron HCl (Ondansetron Hcl 4 Mg/2 Ml Vial) 4 mg IVPUSH Q8H PRN PRN Reason: Nausea and Vomiting Sodium Chloride (0.9 % Sodium Chloride Flush 3 Ml Syringe) 3 ml IVFLUSH QSHIFT [facility] Last Admin: 05/12/22 09:05 Dose: 3 ml Home Medications Medication Instructions Recorded Confirmed Last Taken Type No Known Home Meds 05/09/22 05/09/22 Unknown History Physical Exam Vital Signs: Vital Signs: Last Vital Signs Temp 99.2 F 05/12/22 12:00 Pulse 70 05/12/22 12:00 Resp 17 05/12/22 12:00 BP 143/73 H 05/12/22 12:00 Pulse Ox 95 05/12/22 12:00 O2 Del Method 05/12/22 12:00 BMI result Body Mass Index 21.5 Const: General: cooperative HEENT: Head: Yes normal to inspection Face and sinus: Yes normal facial exam Mouth: Normal oral and palatal mucosa present Teeth and gingiva: dentition normal Eyes: General: appearance normal, both eyes and all related structures Pupils: Equal, round and reactive pupils present Resp: Effort & Inspection: normal respiratory effort Cardio: Rate: regular rate Rhythm: regular rhythm Heart sounds: Murmur heart sound present (2/6 LUIS) GI: Palpation (GI): Soft to palpation and nontender : General: Yes no CVA tenderness Back/Spine/Pelvis: Back: no CVA tenderness Skin: General skin exam: no rashes or lesions noted Neuro: General: moves all extremities Cranial nerves: Yes Equal, round and reactive pupils present Extrem: General: Yes normal to inspection Psych: Appearance: grossly normal Results Labs CBC & Chem 7: 05/12/22 08:04 05/12/22 08:04 Labs: Short CBC 05/12/22 Range/Units 08:04 WBC 22.2 H (4.8-10.8) X10*3/uL Hgb 10.7 L (14.0-18.0) g/dl Hct 31.6 L (42.0-52.0) % Plt Count 445 H (160-400) X10*3/uL BMP 05/12/22 08:04 Sodium 138 Potassium 3.4 Chloride 103 Carbon Dioxide 25 BUN 6 L Creatinine 0.62 Calcium 7.5 L Liver Function 05/12/22 Range/Units 08:04 Total Bilirubin 0.4 (0.0-1.0) mg/dL AST 37 (5-37) U/L ALT 39 (0-40) U/L Alkaline Phosphatase 70 (39-117) U/L Albumin 1.9 L (3.5-5.0) g/dL Microbiology Microbiology Results: Microbiology 05/09/22 03:26 Blood - Venous Blood Culture - Preliminary No growth after 48 hours. 05/09/22 03:26 Blood - Venous Blood Culture - Preliminary No growth after 48 hours. Assessment and Plan (1) Pneumonia: Status: Acute He has possible effusion large enough to drain and culture. Possible etiologies include gram positive staph aureus including MRSA and strep pneumonia He is HIV negative Murmur may be old as not bacteremic. (2) Pleural effusion: Status: Acute (3) Opioid use disorder: Status: Acute Plan Change to Ceftriaxone and Doxycycline for now,possible one week and switch to oral Ceftin and Doxycycline. I dont think he has Pseudomonas. Check echo evaluate murmur. CT scan of lung and drain effusion if present and large enough Make sure no PE but doesnt look so at this time. No steroids at this time as focal RLL effusion
[2022-05-12] MEDS: Enoxaparin Sodium 40 MG/0.4 ML SYRINGE SUBCUT (14:19)
[2022-05-12 16:00] VITALS: BP 140/72; PULSE 83; RESP 16; TEMP 38.6; O2SAT 94
[2022-05-12 19:41] VITALS: BP 121/63; PULSE 81; RESP 16; TEMP 37.7; O2SAT 95
[2022-05-12 21:29] LABS: Vancomycin Trough 3.7 mcg/mL (10.0-20.0)
[2022-05-13] VITALS (7 sets, daily range): BP systolic 126–142; BP diastolic 67–86; PULSE 71–86; RESP 17–19; TEMP 36.8–38.6; O2SAT 93–98
[2022-05-13] MEDS: Acetaminophen 325 MG TABLET 650 MG PO ×3 (00:33→17:05)
[2022-05-13] MEDS: cloNIDine HCL 0.1 MG TABLET PO ×3 (00:33→17:05)
[2022-05-13] MEDS: 0.9 % Sodium Chloride Flush 3 ML SYRINGE IVFLUSH ×4 (00:34→20:03)
[2022-05-13] MEDS: cefTRIAXone sodium 2 GM in 0.9 % Sodium Chloride 50 ML IV (07:42)
[2022-05-13] MEDS: methADONE HCl 20 MG/2 ML ORAL.CONC 55 MG PO (07:43)
[2022-05-13 07:44] LABS: MANUAL DIFF FLAG NO
[2022-05-13 07:49] LABS: Basophils Percent Auto 0.2 % (0-2); Eosinophils Percent Auto 0.2 % (0-4); Hemoglobin 10.6 g/dl (14.0-18.0); Imm Gran Abs Auto 0.51 X10*3/uL (0.00-0.03); Imm Gran Pct Auto 2.7 % (0.0-0.4); Lymphocytes Absolute Auto 2.4 X10*3/uL (1.2-4.9); Lymphocytes Percent Auto 12.8 % (20-40); Mean Corpuscular HGB Conc 33.1 g/dl (31.0-36.0); Mean Corpuscular Hemoglobin 27.4 pg (27.0-33.0); Mean Corpuscular Volume 82.7 fL (80.0-98.0); Mean Platelet Volume 9.4 fL (9.4-12.4); Monocytes Absolute Auto 1.3 X10*3/uL (0.1-1.2); Monocytes Percent Auto 6.9 % (2-11); Neutrophils Absolute Auto 14.6 x10*3/uL (2.0-8.3); Neutrophils Percent Auto 77.2 % (45-73); Platelet Count 465 X10*3/uL (160-400); Red Blood Count 3.87 X10*6/uL (4.60-5.80); Red Cell Distribution Width 12.6 % (11.0-16.0); White Blood Count 18.9 X10*3/uL (4.8-10.8)
[2022-05-13 08:28] LABS: Alanine Aminotransferase 53 U/L (0-40); Alkaline Phosphatase 69 U/L (39-117); Anion Gap 11 (12-20); Aspartate Amino Transferase 52 U/L (5-37); Bilirubin Total < 0.2 mg/dL (0.0-1.0); Blood Urea Nitrogen 5 mg/dL (9-16); Calcium 7.3 mg/dL (8.4-10.2); Carbon Dioxide 27 mmol/L (22-29); Chloride 100 mmol/L (96-108); Creatinine Clr Calc Pharmacy 170.4; Estimated Glomerular Filt Rate > 60; Glucose Fasting 97 mg/dL (60-99); Potassium 4.1 mmol/L (3.3-5.1); Sodium 134 mmol/L (135-145); Total Protein 6.4 g/dL (6.5-8.0)
--- NOTE | 2022-05-13 11:56 | MHC.CM.PN ---
Addendum entered by Yessica Hilton RN 05/13/22 13:48: REFERRAL EXPANDED TO [facility] D/T NO LOCAL BED OFFERS. Original Note: EMR REVIEWED, PER HOSPITALIST PT WILL NEED STR FOR PRISON IV ABX, REFERRALS PLACED TO [facility] D/T CURRENT IVDU, PT ALSO STARTED ON METHADONE MAINT WHILE INPT AND WILL BE SET UP W/OUT PT CLINIC PRIOR TO D/C. CM TO REVIEW LIMITED SNF OPTIONS (D/T IVDU AND METHADONE) W/PT.
--- NOTE | 2022-05-13 12:23 | P.PNIM_ITS ---
Subjective Subjective Date of Service: 05/13/22 Interval History: T-max 101.4 degrees overnight. Voices no complaints Review of Systems denies chest pain Denies shortness of breath Denies nausea vomiting diarrhea Physical Exam Vital Signs: Vital Signs: Last Vital Signs Temp 99.2 F 05/13/22 07:55 Pulse 79 05/13/22 07:55 Resp 18 05/13/22 07:55 BP 142/86 H 05/13/22 07:55 Pulse Ox 98 05/13/22 07:55 O2 Del Method 05/13/22 07:55 BMI result Body Mass Index 21.5 Const: Other: no acute distress Resp: Other: Clear to auscultation bilaterally. No rales rhonchi or wheezes Cardio: Other: no S4; positive S1-S2; no S3. 2/6 systolic murmur best heard over the apex Extrem: Other: no edema bilaterally Objective Data Active Medications Acetaminophen (Acetaminophen 325 Mg Tablet) 650 mg PO Q6H PRN PRN Reason: Pain, Mild (Pain Scale 1-3) Last Admin: 05/13/22 07:44 Dose: 650 mg Documented By: MARY Clonidine HCl (Clonidine Hcl 0.1 Mg Tablet) 0.1 mg PO TID PRN; Protocol PRN Reason: katya Last Admin: 05/13/22 08:29 Dose: 0.1 mg Documented By: MARY Doxycycline Hyclate (Doxycycline Hyclate 100 Mg Tablet) 100 mg PO Q12H [facility] Last Admin: 05/13/22 07:43 Dose: 100 mg Documented By: MARY Enoxaparin Sodium (Enoxaparin Sodium 40 Mg/0.4 Ml Syringe) 40 mg SUBCUT Q24H [facility] Last Admin: 05/12/22 14:19 Dose: 40 mg Documented By: MARY Ceftriaxone Sodium 2 gm/ (Sodium Chloride) 50 mls @ 100 mls/hr IV Q24H [facility] Last Infusion: 05/13/22 08:43 Dose: 0 mls/hr Documented By: MARY LOU Methadone HCl (Methadone Hcl 20 Mg/2 Ml Oral.Conc) 55 mg PO DAILY [facility] Last Admin: 05/13/22 07:43 Dose: 55 mg Documented By: MARY Ondansetron HCl (Ondansetron Hcl 4 Mg/2 Ml Vial) 4 mg IVPUSH Q8H PRN PRN Reason: Nausea and Vomiting Sodium Chloride (0.9 % Sodium Chloride Flush 3 Ml Syringe) 3 ml IVFLUSH QSHIFT [facility] Last Admin: 05/13/22 07:51 Dose: 3 ml Documented By: MARY Labs CBC & Chem 7: 05/13/22 07:35 05/13/22 07:35 Labs: Laboratory Results - last 24 hr 05/12/22 05/13/22 05/13/22 20:59 07:35 07:35 MCV 82.7 MCH 27.4 MCHC 33.1 RDW 12.6 Plt Count 465 H MPV 9.4 Immature Gran % (Auto) 2.7 H Neut % (Auto) 77.2 H Lymph % (Auto) 12.8 L [place] % (Auto) 6.9 Eos % (Auto) 0.2 Baso % (Auto) 0.2 Lymph # (Auto) 2.4 [place] # (Auto) 1.3 H Eos # (Auto) 0.0 Baso # (Auto) 0.0 Abs Immat Gran (auto) 0.51 H Absolute Neuts (auto) 14.6 H Absolute Nucleated RBC 0.000 Nucleated RBC % (auto) 0.0 Anion Gap 11 L Estim Creat Clear Calc 170.4 Estimated GFR > 60 Fasting Glucose 97 Calcium 7.3 L Total Bilirubin < 0.2 AST 52 H ALT 53 H Alkaline Phosphatase 69 Total Protein 6.4 L Albumin 2.0 L Vancomycin Trough 3.7 L Assessment and Plan (1) Pneumonia: Status: Acute (2) Opioid withdrawal: Status: Acute Plan 31yo M with history of injection heroin + cocaine abuse presenting with cough, dyspnea, and tactile fever and found to have pneumonia with small pleural effusion. 1.Pneumonia -Ceftriaxone/doxycycline(4) - 2D echo with questionable aortic vegetation versus clot. Will discuss with ID - blood cultures negative thus far 2.Hypokalemia -stable - repleted, continue to follow 3.Opioid withdrawal/disorder - start methadone as per Addiction Medicine heparin Full code patient will require ongoing hospitalization for IV antibiotics to treat pneumonia Quality Stroke Does the patient have a stroke diagnosis?: No VTE Prior VTE?: No VTE Risk Level:: Medical - moderate - high VTE Device Contraindication: N/A - Device Ordered VTE Drug Contraindication: N/A - Med Ordered
[2022-05-13] MEDS: Enoxaparin Sodium 40 MG/0.4 ML SYRINGE SUBCUT (13:50)
[2022-05-14 03:54] VITALS: BP 118/65; PULSE 87; RESP 17; TEMP 37.9; O2SAT 93
[2022-05-14] MEDS: Acetaminophen 325 MG TABLET 650 MG PO ×2 (04:39→19:51)
[2022-05-14] MEDS: cloNIDine HCL 0.1 MG TABLET PO (04:43)
[2022-05-14 05:46] LABS: MANUAL DIFF FLAG NO
[2022-05-14 05:52] LABS: Basophils Percent Auto 0.3 % (0-2); Eosinophils Percent Auto 0.3 % (0-4); Hematocrit 29.7 % (42.0-52.0); Hemoglobin 9.8 g/dl (14.0-18.0); Imm Gran Abs Auto 0.37 X10*3/uL (0.00-0.03); Imm Gran Pct Auto 2.6 % (0.0-0.4); Lymphocytes Absolute Auto 2.3 X10*3/uL (1.2-4.9); Lymphocytes Percent Auto 15.8 % (20-40); Mean Corpuscular Hemoglobin 27.3 pg (27.0-33.0); Mean Corpuscular Volume 82.7 fL (80.0-98.0); Mean Platelet Volume 9.5 fL (9.4-12.4); Monocytes Absolute Auto 1.1 X10*3/uL (0.1-1.2); Monocytes Percent Auto 7.8 % (2-11); Neutrophils Absolute Auto 10.5 x10*3/uL (2.0-8.3); Neutrophils Percent Auto 73.2 % (45-73); Platelet Count 465 X10*3/uL (160-400); Red Blood Count 3.59 X10*6/uL (4.60-5.80); Red Cell Distribution Width 12.4 % (11.0-16.0); White Blood Count 14.3 X10*3/uL (4.8-10.8)
[2022-05-14 06:13] LABS: Alanine Aminotransferase 59 U/L (0-40); Alkaline Phosphatase 62 U/L (39-117); Anion Gap 12 (12-20); Aspartate Amino Transferase 57 U/L (5-37); Bilirubin Total 0.2 mg/dL (0.0-1.0); Blood Urea Nitrogen 6 mg/dL (9-16); Calcium 7.7 mg/dL (8.4-10.2); Carbon Dioxide 27 mmol/L (22-29); Chloride 99 mmol/L (96-108); Creatinine Clr Calc Pharmacy 162.4; Estimated Glomerular Filt Rate > 60; Glucose Fasting 136 mg/dL (60-99); Potassium 4.3 mmol/L (3.3-5.1); Sodium 134 mmol/L (135-145); Total Protein 6.4 g/dL (6.5-8.0)
[2022-05-14 08:00] VITALS: BP 123/68; PULSE 98; RESP 16; TEMP 37.6; O2SAT 97
[2022-05-14] MEDS: cefTRIAXone sodium 2 GM in 0.9 % Sodium Chloride 50 ML IV (08:43)
[2022-05-14] MEDS: methADONE HCl 20 MG/2 ML ORAL.CONC 55 MG PO (08:43)
[2022-05-14] MEDS: 0.9 % Sodium Chloride Flush 3 ML SYRINGE IVFLUSH ×3 (08:46→21:52)
[2022-05-14 11:05] VITALS: BP 131/73; PULSE 78; RESP 18; TEMP 37.4; O2SAT 95
[2022-05-14 12:24] LABS: INTERNATIONAL NORM RATIO 1.3 (0.9-1.1); Prothrombin Time 14.8 SEC (10.0-13.1)
[2022-05-14 12:26] LABS: Partial Thromboplastin Time 35.1 SEC (26.0-36.4)
--- NOTE | 2022-05-14 13:09 | HO.PM.IMPN ---
Subjective Subjective Date of Service: 05/14/22 Interval History: notes minimal improvement today. Seems breathing has gotten worse Review of Systems denies chest pain admits shortness of breath Denies nausea vomiting diarrhea Physical Exam Vital Signs: Vital Signs: Last Vital Signs Temp 99.4 F 05/14/22 11:05 Pulse 78 05/14/22 11:05 Resp 18 05/14/22 11:05 BP 131/73 05/14/22 11:05 Pulse Ox 95 05/14/22 11:05 O2 Del Method 05/14/22 11:05 BMI result Body Mass Index 21.5 Const: Other: no acute distress Resp: Other: Clear to auscultation bilaterally. No rales rhonchi or wheezes Cardio: Other: no S4; positive S1-S2; no S3. 2/6 systolic murmur best heard over the apex Extrem: Other: no edema bilaterally Objective Data Active Medications Acetaminophen (Acetaminophen 325 Mg Tablet) 650 mg PO Q6H PRN PRN Reason: Pain, Mild (Pain Scale 1-3) Last Admin: 05/14/22 04:39 Dose: 650 mg Documented By: DARCY Clonidine HCl (Clonidine Hcl 0.1 Mg Tablet) 0.1 mg PO TID PRN; Protocol [facility]N [facility] Last Admin: 05/14/22 04:43 Dose: 0.1 mg Documented By: DARCY Doxycycline Hyclate (Doxycycline Hyclate 100 Mg Tablet) 100 mg PO Q12H [facility] Last Admin: 05/14/22 08:43 Dose: 100 mg Documented By: MARY LOU Enoxaparin Sodium (Enoxaparin Sodium 40 Mg/0.4 Ml Syringe) 40 mg SUBCUT Q24H [facility] Last Admin: 05/14/22 12:31 Dose: Not Given Documented By: MARY LOU Non-Admin Reason: hold for procedure Ceftriaxone Sodium 2 gm/ (Sodium Chloride) 50 mls @ 100 mls/hr IV Q24H [facility] Last Infusion: 05/14/22 09:16 Dose: 0 mls/hr Documented By: MARY LOU Methadone HCl (Methadone Hcl 20 Mg/2 Ml Oral.Conc) 55 mg PO DAILY [facility] Last Admin: 05/14/22 08:43 Dose: 55 mg Documented By: MARY LOU Ondansetron HCl (Ondansetron Hcl 4 Mg/2 Ml Vial) 4 mg IVPUSH Q8H PRN PRN Reason: Nausea and Vomiting Sodium Chloride (0.9 % Sodium Chloride Flush 3 Ml Syringe) 3 ml IVFLUSH QSHIFT [facility] Last Admin: 05/14/22 08:46 Dose: 3 ml Documented By: MARY LOU Labs CBC & Chem 7: 05/14/22 05:34 05/14/22 05:34 Labs: Laboratory Results - last 24 hr 05/14/22 05/14/22 05/14/22 05:34 05:34 12:05 MCV 82.7 MCH 27.3 MCHC 33.0 RDW 12.4 Plt Count 465 H MPV 9.5 Immature Gran % (Auto) 2.6 H Neut % (Auto) 73.2 H Lymph % (Auto) 15.8 L Cloud % (Auto) 7.8 Eos % (Auto) 0.3 Baso % (Auto) 0.3 Lymph # (Auto) 2.3 Cloud # (Auto) 1.1 Eos # (Auto) 0.0 Baso # (Auto) 0.0 Abs Immat Gran (auto) 0.37 H Absolute Neuts (auto) 10.5 H Absolute Nucleated RBC 0.000 Nucleated RBC % (auto) 0.0 PT 14.8 H INR 1.3 H APTT 35.1 Anion Gap 12 Estim Creat Clear Calc 162.4 Estimated GFR > 60 Fasting Glucose 136 H D Calcium 7.7 L Total Bilirubin 0.2 AST 57 H ALT 59 H Alkaline Phosphatase 62 Total Protein 6.4 L Albumin 2.0 L Microbiology Microbiology Results: Microbiology 05/12/22 10:22 Blood Culture - Preliminary Blood - Venous No growth after 48 hours. 05/12/22 10:22 Blood Culture - Preliminary Blood - Venous No growth after 48 hours. 05/09/22 03:26 Blood Culture - Final Blood - Venous No growth after 5 days. 05/09/22 03:26 Blood Culture - Final Blood - Venous No growth after 5 days. Assessment and Plan (1) Pneumonia: Status: Acute (2) Opioid use disorder: Status: Acute (3) Polysubstance abuse: Status: Acute Plan 31yo M with history of injection heroin + cocaine abuse presenting with cough, dyspnea, and tactile fever and found to have pneumonia with small pleural effusion. 1.Pneumonia( CT demonstrates loculated effusion ) -Ceftriaxone/doxycycline(5) - 2D echo with questionable aortic vegetation versus clot. Will discuss with ID - blood cultures negative thus far - CT-guided biopsy in a.m. 2.Hypokalemia -stable - repleted, continue to follow 3.Opioid withdrawal/disorder - start methadone as per Addiction Medicine heparin Full code patient will require ongoing hospitalization for IV antibiotics to treat pneumonia Quality Stroke Does the patient have a stroke diagnosis?: No VTE Prior VTE?: No VTE Risk Level:: Medical - moderate - high VTE Device Contraindication: N/A - Device Ordered VTE Drug Contraindication: N/A - Med Ordered
[2022-05-14 15:27] VITALS: BP 122/63; PULSE 76; RESP 23; TEMP 37.6; O2SAT 94
[2022-05-14] MEDS: methADONE HCl 20 MG/2 ML ORAL.CONC 5 MG PO (17:24)
[2022-05-14 19:17] VITALS: BP 123/68; PULSE 89; RESP 20; TEMP 38.2; O2SAT 92
[2022-05-14 23:33] VITALS: BP 117/62; PULSE 82; RESP 17; TEMP 36.4; O2SAT 94
[2022-05-15] VITALS (8 sets, daily range): BP systolic 102–132; BP diastolic 57–79; PULSE 66–81; RESP 16–24; TEMP 36–37.2; O2SAT 94–98
[2022-05-15 06:06] LABS: Creatinine Clr Calc Pharmacy 173.2; Estimated Glomerular Filt Rate > 60
[2022-05-15] MEDS: cefTRIAXone sodium 2 GM in 0.9 % Sodium Chloride 50 ML IV (07:55)
[2022-05-15] MEDS: 0.9 % Sodium Chloride Flush 3 ML SYRINGE IVFLUSH ×3 (07:56→20:39)
[2022-05-15] MEDS: methADONE HCl 20 MG/2 ML ORAL.CONC 60 MG PO (08:31)
--- NOTE | 2022-05-15 12:00 | MHC.RECOVRN ---
Briefly met with pt on 05/14 at 1600. Pt laying in bed, awake, alert, watching TV. Pt appears anxious and diaphoretic, guarded, hesitant to engage in conversation. Pt reports feeling better, however, is experiencing sweating and chills in the evening. Requesting to increase methadone by 5 mg. Pts referral has been sent to [facility] to continue methadone after dc. Discussed after care plan, pt states I don't know. They haven't told me anything. I think I'm here for a skin infection. Discussed CSS vs skilled nursing as pt in homeless. Pt would like to think about it and discuss at a later time. Pt denies questions or concerns. Discussed with Nuris Aragon NP. T/w available as needed.
--- NOTE | 2022-05-15 13:01 | MHC.CM.PN ---
per ROUNDS discussion, patient is not yet medically cleared for discharge today R/T need for IV antibiotics for Pneumonia and ID consult. CM will continue to follow for discharge needs.
[2022-05-15] MEDS: Enoxaparin Sodium 40 MG/0.4 ML SYRINGE SUBCUT (13:09)
--- NOTE | 2022-05-15 14:23 | P.PNIM_ITS ---
Subjective Subjective Date of Service: 05/15/22 Interval History: Return from right thoracocentesis, complaining of pain at site of chest tube, denies fever chills, noted to have fever 100.8 last night, no acute events overnight, oxygenation remains stable, patient denies nausea vomiting, no abdominal pain, no diarrhea. Feels shortness of breath is improving, scared to cough due to worsening back pain Review of Systems Review of Systems: Yes all other systems are reviewed and are negative Physical Exam Vital Signs: Vital Signs: Last Vital Signs Temp 98.1 F 05/15/22 12:18 Pulse 70 05/15/22 12:18 Resp 17 05/15/22 12:18 BP 115/66 05/15/22 12:18 Pulse Ox 96 05/15/22 12:18 O2 Del Method 05/15/22 12:18 O2 Flow Rate 2 05/15/22 11:52 BMI result Body Mass Index 21.5 Const: Other: General ill-appearing,in no acute distress. Neck left left IJ catheter. CVS regular rate rhythm, systolic murmur Respiratory lungs diminished breath sounds,no respiratory distress, no wheeze, no rhonchi. Gastrointestinal abdomen soft, nontender, bowel sounds audible, no guarding , no rigidity. Extremities no edema. Neuro nonfocal , speech clear. Psych appropriate affect Objective Data Active Medications Acetaminophen (Acetaminophen 325 Mg Tablet) 650 mg PO Q6H PRN PRN Reason: Pain, Mild (Pain Scale 1-3) Last Admin: 05/14/22 19:51 Dose: 650 mg Documented By: DARCY Clonidine HCl (Clonidine Hcl 0.1 Mg Tablet) 0.1 mg PO TID PRN; Protocol PRN Reason: [facility] Last Admin: 05/14/22 04:43 Dose: 0.1 mg Documented By: DARCY Doxycycline Hyclate (Doxycycline Hyclate 100 Mg Tablet) 100 mg PO Q12H [facility] Last Admin: 05/15/22 08:31 Dose: 100 mg Documented By: DARCY Enoxaparin Sodium (Enoxaparin Sodium 40 Mg/0.4 Ml Syringe) 40 mg SUBCUT Q24H [facility] Last Admin: 05/15/22 13:09 Dose: 40 mg Documented By: JUAN Ceftriaxone Sodium 2 gm/ (Sodium Chloride) 50 mls @ 100 mls/hr IV Q24H [facility] Last Infusion: 05/15/22 08:35 Dose: 0 mls/hr Documented By: VINNIERINChaya Methadone HCl (Methadone Hcl 20 Mg/2 Ml Oral.Conc) 60 mg PO DAILY [facility] Last Admin: 05/15/22 08:31 Dose: 60 mg Documented By: DARCY Ondansetron HCl (Ondansetron Hcl 4 Mg/2 Ml Vial) 4 mg IVPUSH Q8H PRN PRN Reason: Nausea and Vomiting Sodium Chloride (0.9 % Sodium Chloride Flush 3 Ml Syringe) 3 ml IVFLUSH QSHIFT [facility] Last Admin: 05/15/22 07:56 Dose: 3 ml Documented By: DARCY Labs CBC & Chem 7: 05/14/22 05:34 05/15/22 05:08 Labs: Laboratory Results - last 24 hr 05/15/22 05:08 Estim Creat Clear Calc 173.2 Estimated GFR > 60 Microbiology Microbiology Results: Microbiology 05/12/22 10:22 Blood Culture - Preliminary Blood - Venous No growth after 48 hours. 05/12/22 10:22 Blood Culture - Preliminary Blood - Venous No growth after 48 hours. Assessment and Plan (1) Pneumonia: Status: Acute (2) Opioid use disorder: Status: Acute (3) Polysubstance abuse: Status: Acute Plan 31yo M with history of injection heroin + cocaine abuse presenting with cough, dyspnea, and tactile fever and found to have pneumonia with small pleural effusion. 1.Pneumonia with right loculated effusion/compressive atelectasis consolidation right lower lobe Persistent fevers, WBC improved but remains elevated, on iv Ceftriaxone/doxycycline day 6 - 2D echo showed 0.46 cm density questionable aortic vegetation versus clot. - blood cultures negative thus far obtain on 05/09 and 05/12 - underwent thoracocentesis this a.m. 8.5 F chest tube placed very little fluid came out, IR recommend tPA/decortication, will obtain thoracic surgery consult, follow pleural fluid studies Will add cough medication, give IV Toradol for back pain Will obtain ID and Cardiology consult in regard to aortic density 2.Hypokalemia resolved 3.Opioid withdrawal/disorder - continue methadone as per Addiction Medicine DVT prophylaxis continue Lovenox Full code patient will require ongoing hospitalization for IV antibiotics to treat pneumonia and for further evaluation of aortic valve density and loculated effusion Quality Stroke Does the patient have a stroke diagnosis?: No VTE Prior VTE?: No VTE Risk Level:: Medical - moderate - high VTE Device Contraindication: N/A - Device Ordered VTE Drug Contraindication: N/A - Med Ordered
[2022-05-15] MEDS: Acetaminophen 325 MG TABLET 650 MG PO ×2 (15:59→22:34)
[2022-05-15] MEDS: guaiFENesin DM 200/20/10 ML 10 ML SYRUP PO ×2 (17:02→22:33)
[2022-05-15] MEDS: Ketorolac Tromethamine 15 MG/ML VIAL IVPUSH (17:02)
[2022-05-16 04:00] VITALS: BP 118/72; PULSE 64; RESP 20; TEMP 36.8; O2SAT 93
[2022-05-16] MEDS: guaiFENesin DM 200/20/10 ML 10 ML SYRUP PO ×3 (04:23→20:30)
[2022-05-16] MEDS: Acetaminophen 325 MG TABLET 650 MG PO ×2 (04:26→17:28)
[2022-05-16 07:15] LABS: Creatinine Clr Calc Pharmacy 155.1; Estimated Glomerular Filt Rate > 60
[2022-05-16 07:50] VITALS: BP 115/60; PULSE 55; RESP 18; TEMP 36.3; O2SAT 98
[2022-05-16] MEDS: methADONE HCl 20 MG/2 ML ORAL.CONC 60 MG PO (08:47)
[2022-05-16] MEDS: 0.9 % Sodium Chloride Flush 3 ML SYRINGE IVFLUSH ×3 (08:47→20:31)
[2022-05-16] MEDS: cefTRIAXone sodium 2 GM in 0.9 % Sodium Chloride 50 ML IV (08:47)
[2022-05-16 09:02] LABS: MN% 12.5 %; PMN% 87.5 %; RBC Pleural Fluid 0.004 X10*3/uL; WBC Pleural Fluid 7.368 X10*3/uL
[2022-05-16 09:25] LABS: BF Shift QC OK YES; Lymphocytes Pleural Fluid 5 %; Monocytes Pleural Fluid 3 %; Neutrophils Pleural Fluid 82 %
[2022-05-16 09:27] LABS: Other Cells Plerual Fl 10 %
[2022-05-16 11:21] VITALS: BP 114/62; PULSE 64; RESP 18; TEMP 36.6; O2SAT 96
[2022-05-16] MEDS: Enoxaparin Sodium 40 MG/0.4 ML SYRINGE SUBCUT (11:54)
--- NOTE | 2022-05-16 12:03 | PM.CNCAR ---
History of Present Illness History of Present Illness Date of Service: 05/16/22 Requesting physician: Yuval Cosme Chief complaint: aortic valve mass, IVDU Narrative: 31-year-old gentleman who has history of cocaine and IV heroin abuse who presented with cough, dyspnea and fever. He was found to have pneumonia with pleural effusion. He has loculated right lung effusion with compressive atelectasis and underwent thoracentesis and chest tube placement. He had an echocardiogram which raise some concern for a small mass on the aortic valve. He has negative blood cultures. He has no further fevers. He is denying any other issues. We have been asked to assess him for endocarditis. [facility] Past Medical History Medical History Polysubstance abuse Family History Family history: reviewed and not pertinent Surgical History Surgical History No history of previous surgery Social History Social History Household Members: None Housing: Homeless Do you presently have visiting nurse or other home services: No Patient Tobacco Use Status: Current someday Tobacco user Substance Use Type: Crack/Cocaine, Heroin and Marijuana service: No Current occupational status: unemployed Meds Allergies Allergy/AdvReac Type Severity Reaction Status Date / Time No Known Allergies Allergy Verified 05/09/22 01:10 [No Known Allergies*] Active Medications: Current Medications Acetaminophen (Acetaminophen 325 Mg Tablet) 650 mg PO Q6H PRN PRN Reason: Pain, Mild (Pain Scale 1-3) Last Admin: 05/16/22 04:26 Dose: 650 mg Clonidine HCl (Clonidine Hcl 0.1 Mg Tablet) 0.1 mg PO TID PRN; Protocol PRN Reason: katya Last Admin: 05/14/22 04:43 Dose: 0.1 mg Doxycycline Hyclate (Doxycycline Hyclate 100 Mg Tablet) 100 mg PO Q12H [facility] Last Admin: 05/16/22 08:47 Dose: 100 mg Enoxaparin Sodium (Enoxaparin Sodium 40 Mg/0.4 Ml Syringe) 40 mg SUBCUT Q24H [facility] Last Admin: 05/16/22 11:54 Dose: 40 mg Guaifenesin/Dextromethorphan (Guaifenesin Dm 200/20/10 Ml 10 Ml Syrup) 10 ml PO Q6H [facility] Last Admin: 05/16/22 11:54 Dose: 10 ml Ceftriaxone Sodium 2 gm/ (Sodium Chloride) 50 mls @ 100 mls/hr IV Q24H [facility] Last Infusion: 05/16/22 10:35 Dose: Infused Alteplase, Recombinant 4 mg/ (Sodium Chloride) 50 mls @ 100 mls/hr INTRAPLEUR ONCE ONE Stop: 05/16/22 12:19 Methadone HCl (Methadone Hcl 20 Mg/2 Ml Oral.Conc) 60 mg PO DAILY [facility] Last Admin: 05/16/22 08:47 Dose: 60 mg Ondansetron HCl (Ondansetron Hcl 4 Mg/2 Ml Vial) 4 mg IVPUSH Q8H PRN PRN Reason: Nausea and Vomiting Sodium Chloride (0.9 % Sodium Chloride Flush 3 Ml Syringe) 3 ml IVFLUSH QSHIFT [facility] Last Admin: 05/16/22 08:47 Dose: 3 ml Home Medications Medication Instructions Recorded Confirmed Last Taken Type No Known Home Meds 05/09/22 05/09/22 Unknown History Physical Exam Vital Signs: Vital Signs: Last Vital Signs Temp 98 F 05/16/22 11:21 Pulse 64 05/16/22 11:21 Resp 18 05/16/22 11:21 BP 114/62 05/16/22 11:21 Pulse Ox 96 05/16/22 11:21 O2 Del Method 05/16/22 11:21 O2 Flow Rate 2 05/15/22 11:52 BMI result Body Mass Index 21.5 GENERAL APPEARANCE: in no acute distress, pleasant. NECK: no carotid bruit, IJ triple-lumen catheter. SKIN: no suspicious lesions, warm and dry. HEART: no murmurs, regular rate and rhythm. LUNGS: clear to auscultation bilaterally. Right lung chest tube in place. ABDOMEN: soft, nontender. EXTREMITIES: no edema. PERIPHERAL PULSES: equal. NEUROLOGIC: No gross deficits, AAO X 3 Objective Labs and Meds Result diagrams: 05/14/22 05:34 05/16/22 05:42 Lab results: Laboratory Results - last 24 hr 05/15/22 05/16/22 11:00 05:42 Creatinine 0.67 Estim Creat Clear Calc 155.1 Estimated GFR > 60 Pleural WBC 7.368 Pleural RBC 0.004 Pleural Neutrophils 82 Pleural Lymphocytes 5 Pleural Monocytes 3 Pleural Other Cells 10 Assessment and Plan (1) Polysubstance abuse: Status: Acute (2) Endocarditis, suspected: Status: Acute Plan 31-year-old gentleman with IV drug use is presenting for pneumonia and loculated pleural effusion for which he has chest tube placement. He has been found to have a small aortic valve mobile density which has differentials of vegetation versus clot. Given his history of IV drug use potential endocarditis is possible. He has been on antibiotics interestingly his blood cultures have been negative. For his pneumonia and loculated effusion he will need antibiotics. I am not sure about the duration of antibiotics. I think there is a clear aortic valve abnormality and this is worth discussing with Infectious Disease whether he should be treated as endocarditis. If ID team feels that he should have transesophageal echocardiogram for more information then we can arrange that. Currently his presentation appears to be due to pneumonia and loculated effusion. Thank you for allowing me to participate in the care of your patient. Please feel free to contact me if you have any questions. Procedures Date of Service Date of Service: 05/16/22
--- NOTE | 2022-05-16 12:20 | MHC.RECOVRN ---
T/W checked in w/ pt, pt alert, oriented, sitting up in bed, watching t.v. finishing breakfast. Pt states feeling a bit better then yesterday. Pt states feels good on current Methadone dose, would like to stay at that dose. Pt aware that t/w will be checking in w/ pt tomorrow. Provider Nuris Aragon aware.
--- NOTE | 2022-05-16 13:06 | MHC.CM.PN ---
PATIENT NOT MEDICALLY STABLE FOR DC. CASE MANAGEMENT FOLLOWING FOR DC NEEDS PER REVIEW OF NOTES, CURRENTLY ON 60 MG METHADONE AND TOLERATING
--- NOTE | 2022-05-16 13:17 | P.CONGS_ITS ---
History of Present Illness Consult details Consult date: 05/16/22 Narrative: Mr. Jett is a 31 year old male with polysubstance abuse who has been admitted to the hospital since 05/09/2022 when he presented for right chest pain, right leg pain, cough, dyspnea, fever, chills, and nausea. He initially had a leukocytosis of 21, small right pleural effusion with infiltrate on CXR, as well as a new murmur. Was admitted with a diagnosis of pneumonia and has been treated with IV antitbiotics. Echocardiogram was performed that showed a mobile mass on the cusp of the aortic valve suggesting vegetation vs. clot. He complained of worsening shortness of breath, therefore a chest CT was done on 05/12/2022 which showed a loculated right pleural effusion. Medicine team ordered a pigtail chest tube be placed, which was done by IR on 05/15/2022. Thoracic Surgery was then consulted for ongoing management. At time of my visit today the patient states his breathing has been feeling better since the tube was placed. Main complaint at this time is discomfort at the chest tube insertion site. Denies any productive cough today, but states previous days had some yellow sputum. Denies any hemoptysis. Denies any previous lung infection or surgeries. Review of Systems Constitutional: Constitutional: Denies chills, Reports fatigue, Denies fever(s), Denies headache(s) and Denies weakness Eyes: Eyes: Denies loss of vision ENT: Denies dysphagia, Denies headache(s), Denies hoarseness, Denies nasal c ongestion, Denies neck pain, Denies odynophagia, Denies throat swelling and Denies tongue swelling Cardiovascular: Cardiovascular: Denies chest pain, Denies edema, Denies irregular heart rhythm, Denies lightheadedness and Denies dyspnea Respiratory: Respiratory: Reports cough, Reports pain on inspiration, Reports pain with cough, Denies dyspnea and Denies wheezing Gastrointestinal: Gastrointestinal: Denies abdominal pain, Denies dysphagia, Denies nausea, Denies odynophagia and Denies vomiting Musculoskeletal: Musculoskeletal: Denies neck pain Neurologic: Denies headache(s), Denies loss of vision and Denies weakness Endocrine: Endocrine: Reports fatigue Allergic/Immunologic: Allergic/Immunologic: Denies throat swelling, Denies tongue swelling and Denies wheezing PMF Past Medical History Medical History Polysubstance abuse Family History Family history: reviewed and not pertinent Surgical History Surgical History No history of previous surgery Social History Social History Household Members: None Housing: Homeless Do you presently have visiting nurse or other home services: No Patient Tobacco Use Status: Current someday Tobacco user Substance Use Type: Crack/Cocaine, Heroin and Marijuana service: No Current occupational status: unemployed Meds Allergies Allergy/AdvReac Type Severity Reaction Status Date / Time No Known Allergies Allergy Verified 05/09/22 01:10 [No Known Allergies*] Active Medications: Current Medications Acetaminophen (Acetaminophen 325 Mg Tablet) 650 mg PO Q6H PRN PRN Reason: Pain, Mild (Pain Scale 1-3) Last Admin: 05/16/22 04:26 Dose: 650 mg Clonidine HCl (Clonidine Hcl 0.1 Mg Tablet) 0.1 mg PO TID PRN; Protocol PRN Reason: mariselapaula Last Admin: 05/14/22 04:43 Dose: 0.1 mg Doxycycline Hyclate (Doxycycline Hyclate 100 Mg Tablet) 100 mg PO Q12H [facility] Last Admin: 05/16/22 08:47 Dose: 100 mg Enoxaparin Sodium (Enoxaparin Sodium 40 Mg/0.4 Ml Syringe) 40 mg SUBCUT Q24H DIEUDONNE Last Admin: 05/16/22 11:54 Dose: 40 mg Guaifenesin/Dextromethorphan (Guaifenesin Dm 200/20/10 Ml 10 Ml Syrup) 10 ml PO Q6H DIEUDONNE Last Admin: 05/16/22 11:54 Dose: 10 ml Ceftriaxone Sodium 2 gm/ (Sodium Chloride) 50 mls @ 100 mls/hr IV Q24H [facility] Last Infusion: 05/16/22 10:35 Dose: Infused Dornase Jem 5 mg/ Sodium (Chloride) 30 mls @ 0 mls/hr INTRAPLEUR ONCE ONE Stop: 05/16/22 14:31 Methadone HCl (Methadone Hcl 20 Mg/2 Ml Oral.Conc) 60 mg PO DAILY [facility] Last Admin: 05/16/22 08:47 Dose: 60 mg Ondansetron HCl (Ondansetron Hcl 4 Mg/2 Ml Vial) 4 mg IVPUSH Q8H PRN PRN Reason: Nausea and Vomiting Sodium Chloride (0.9 % Sodium Chloride Flush 3 Ml Syringe) 3 ml IVFLUSH QSHIFT [facility] Last Admin: 05/16/22 08:47 Dose: 3 ml Home Medications Medication Instructions Recorded Confirmed Last Taken Type No Known Home Meds 05/09/22 05/09/22 Unknown History Physical Exam Vital Signs: Vital Signs: Last Vital Signs Temp 98 F 05/16/22 11:21 Pulse 64 05/16/22 11:21 Resp 18 05/16/22 11:21 BP 114/62 05/16/22 11:21 Pulse Ox 96 05/16/22 11:21 O2 Del Method 05/16/22 11:21 O2 Flow Rate 2 05/15/22 11:52 BMI result Body Mass Index 21.5 General: No acute distress, resting comfortably in bed, well developed Head: Normocephalic, atraumatic, symmetric Eyes: Sclera anicteric, eyelids without edema or erythema, +EOMS intact ENT: Oral mucosa and tongue are moist without lesions or exudates Neck: Soft, supple, symmetric, trachea midline, no crepitus, no mass visualized or palpated Cardiovascular: Regular rate and rhythm, no murmur/rubs/gallops, BUE and BLE without edema, no calf tenderness bilaterally Respiratory: Lungs CTA B, breathing nonlabored, speaking in full sentences, on oxygen via nasal cannula. No use of accessory muscles. Right posterior pigtail chest tube x 1 to [facility] on -20 suction, ~70cc serosang drainage, no air leak. Gastrointestinal: Soft, non-tender, non-distended, +normoactive bowel sounds. Skin: Warm and dry throughout, no rashes Lymphatic: no cervical, supraclavicular, infraclavicular, or axillary lympha denopathy noted Neurological: Alert and oriented x 3, no focal neurological deficit noted Psychiatric: no agitation, appropriate affect Results Labs Result diagrams: 05/14/22 05:34 05/16/22 05:42 Labs: BMP 05/16/22 05:42 Creatinine 0.67 Urine 05/09/22 Range/Units 06:05 Urine Color YELLOW Urine Appearance CLEAR Urine pH 6.5 (5.0-8.0) Ur Specific [place] <= 1.005 (1.005-1.025) Urine Protein NEG (NEG-TRACE) MG/DL Urine Glucose (UA) NEG (NEG) MG/DL All other labs normal. Imaging Chest x-ray: report reviewed and image reviewed CT scan - chest: report reviewed and image reviewed Additional studies: CT Scan Report Signed Patient: Matthew Jett MR#: [id number] : 1990 EXAMINATION: CT CHEST WITHOUT CONTRAST CLINICAL INFORMATION: SOB with effusion.? COMPARISON: Chest x-ray 05/12/2022? TECHNIQUE: Multidetector volumetric CT imaging of the chest was done. Axial MIP volume rendering provided. Sagittal and coronal reformatted images were obtained.? This CT examination was performed using dose optimization techniques as appropriate, variously including the following: *Automated exposure control *Adjustment of mA and/or kV according to patient size (this includes techniques or standardized protocols for targeted exams where dose is matched to indication/reason for exam; i.e. 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 There are air bronchograms present in the right lower lobe consolidation. There is a 5 mm nodule right upper lobe. No additional nodule, mass or consolidation seen. There is minimal compressive atelectasis in left lung base from a small pleural effusion.? MEDIASTINUM: Heart size and the great vessels are normal caliber. There is left central venous catheter with its tip in mid SVC. No pericardial effusion seen. The central trachea and bronchi are widely patent.? PLEURA: There is moderate right and small left pleural effusion.? AXILLA: There is bilateral small Lymph nodes largest lymph node measuring 9 mm short axis.? UPPER ABDOMEN: Visualized liver, spleen, pancreas and bilateral adrenal glands unremarkable.? OSSEOUS STRUCTURES: Unremarkable.? CT/CT chest wo con IMPRESSION: Right lower lobe consolidation/atelectasis with loculated pleural effusion and posterior lung base. ? Small left pleural effusion with minimal compressive left basilar atelectasis. ? A diagnostic right thoracentesis can be performed. ? Fleischner guidelines were followed. Assessment and Plan (1) Pleural effusion: Status: Acute Mr. Jett is a 31 year old male with a history of polysubstance abuse who was found to have pneumonia, likely endocarditis, and a loculated right pleural effusion. s/p IR pigtail placement on 05/15/2022. * There has been minimal drainage since the pigtail was placed. * Loculated effusion will require decortication. For now, we will trial chemical decortication with tPA/DNAse. If this does not show significant imp rovement on followup scan, will likely need surgical decortication. * tPA 4mg in 50cc NS given through right chest tube @ 11:50am without issue. Will leave tube clamped x 2 hours, then I will return to give DNAse. * Morning CXR ordered. * Will plan to repeat this process again tomorrow if he tolerates it today with a either a 3rd dose vs repeat CT scan on Wednesday. * Continue IV abx per ID. * Pulmonary toilet: IS, flutter valve, ambulation * Patient should be getting OOB ambulating in the hallways at least 3-4 times daily and should be OOB to chair for all meals. Thank you for the consultation. Case discussed with Dr. Newton. (2) Pneumonia: Status: Acute (3) Polysubstance abuse: Status: Acute (4) Endocarditis, suspected: Status: Acute Procedures Date of Service Date of Service: 05/16/22
--- NOTE | 2022-05-16 13:29 | HO.PM.IMPN ---
Subjective Subjective Date of Service: 05/16/22 Interval History: Complaining of pain at site of chest tube insertion, no significant drainage noted overnight, denies fever chills tolerating diet, avoiding to cough to minimize pain, no acute events overnight. Review of Systems [employer] no headache no dizzy CVS no chest pain, no palpitation GI no nausea, no vomiting Review of Systems: Yes all other systems are reviewed and are negative Physical Exam Vital Signs: Vital Signs: Last Vital Signs Temp 98 F 05/16/22 11:21 Pulse 64 05/16/22 11:21 Resp 18 05/16/22 11:21 BP 114/62 05/16/22 11:21 Pulse Ox 96 05/16/22 11:21 O2 Del Method 05/16/22 11:21 O2 Flow Rate 2 05/15/22 11:52 BMI result Body Mass Index 21.5 Const: Other: General awake alert,in no acute distress.? Neck left left IJ catheter. Supple CVS? regular rate rhythm, systolic murmur Respiratory lungs diminished breath sounds right base,no respiratory distress, no wheeze, no rhonchi. Gastrointestinal abdomen soft, nontender, bowel sounds audible, no guarding , no rigidity. Extremities no edema. Neuro nonfocal , speech clear. Psych appropriate affect Objective Data Active Medications Acetaminophen (Acetaminophen 325 Mg Tablet) 650 mg PO Q6H PRN PRN Reason: Pain, Mild (Pain Scale 1-3) Last Admin: 05/16/22 04:26 Dose: 650 mg Documented By: DARCY Clonidine HCl (Clonidine Hcl 0.1 Mg Tablet) 0.1 mg PO TID PRN; Protocol PRN Reason: penelopenan Last Admin: 05/14/22 04:43 Dose: 0.1 mg Documented By: DARCY Doxycycline Hyclate (Doxycycline Hyclate 100 Mg Tablet) 100 mg PO Q12H [facility] Last Admin: 05/16/22 08:47 Dose: 100 mg Documented By: KAUR Enoxaparin Sodium (Enoxaparin Sodium 40 Mg/0.4 Ml Syringe) 40 mg SUBCUT Q24H [facility] Last Admin: 05/16/22 11:54 Dose: 40 mg Documented By: KAUR Guaifenesin/Dextromethorphan (Guaifenesin Dm 200/20/10 Ml 10 Ml Syrup) 10 ml PO Q6H [facility] Last Admin: 05/16/22 11:54 Dose: 10 ml Documented By: KAUR Ceftriaxone Sodium 2 gm/ (Sodium Chloride) 50 mls @ 100 mls/hr IV Q24H [facility] Last Infusion: 05/16/22 10:35 Dose: 0 mls/hr Documented By: KAUR Dornase Jem 5 mg/ Sodium (Chloride) 30 mls @ 0 mls/hr INTRAPLEUR ONCE ONE Stop: 05/16/22 14:31 Methadone HCl (Methadone Hcl 20 Mg/2 Ml Oral.Conc) 60 mg PO DAILY [facility] Last Admin: 05/16/22 08:47 Dose: 60 mg Documented By: KAUR Ondansetron HCl (Ondansetron Hcl 4 Mg/2 Ml Vial) 4 mg IVPUSH Q8H PRN PRN Reason: Nausea and Vomiting Sodium Chloride (0.9 % Sodium Chloride Flush 3 Ml Syringe) 3 ml IVFLUSH QSHIFT [facility] Last Admin: 05/16/22 08:47 Dose: 3 ml Documented By: KAUR Labs CBC & Chem 7: 05/14/22 05:34 05/16/22 05:42 Labs: Laboratory Results - last 24 hr 05/15/22 05/16/22 11:00 05:42 Estim Creat Clear Calc 155.1 Estimated GFR > 60 Pleural WBC 7.368 Pleural RBC 0.004 Pleural Neutrophils 82 Pleural Lymphocytes 5 Pleural Monocytes 3 Pleural Other Cells 10 Assessment and Plan (1) Pneumonia: Status: Acute (2) Opioid use disorder: Status: Acute (3) Polysubstance abuse: Status: Acute Plan 31yo M with history of injection heroin + cocaine abuse presenting with cough, dyspnea, and tactile fever and found to have pneumonia with small pleural effusion. 1.Pneumonia with right loculated effusion/compressive atelectasis consolidation right lower lobe No fevers in last 24, WBC trending down, feels better than yesterday with less shortness of breath and cough, on iv Ceftriaxone/doxycycline day 7 - 2D echo showed 0.46 cm density questionable aortic vegetation versus clot. - blood cultures negative thus far obtain on 05/09 and 05/12 - underwent thoracocentesis 05/15 8.5 F chest tube placed minimal drainage overnight, patient seen by thoracic surgery plan is for chemical decortication with tPA/DNase if this did not show significant improvement will likely need surgical decortication Continue cough medication, encourage incentive spirometry and out of bed to chair Await cardiology input in regard to further evaluation and treatment for aortic valve density Being followed by infectious disease Follow CBC, chest x-ray and pleural fluid studies send today 2.Hypokalemia resolved 3.Opioid withdrawal/disorder - continue methadone patient feeling better on current dose, is being closely followed by Addiction Team DVT prophylaxis continue Lovenox Full code patient will require ongoing hospitalization for IV antibiotics to treat pneumonia and for further evaluation of aortic valve density and loculated effusion Quality Stroke Does the patient have a stroke diagnosis?: No VTE Prior VTE?: No VTE Risk Level:: Medical - moderate - high VTE Device Contraindication: N/A - Device Ordered VTE Drug Contraindication: N/A - Med Ordered
[2022-05-16 15:41] VITALS: BP 106/53; PULSE 71; RESP 16; TEMP 36.6; O2SAT 96
[2022-05-16 17:05] VITALS: BP 117/57; PULSE 97; RESP 16; TEMP 37.1; O2SAT 97
[2022-05-16] MEDS: Dornase Alfa 5 MG in 0.9 % Sodium Chloride 25 ML INTRAPLEUR (19:55)
[2022-05-16 20:00] VITALS: BP 121/60; PULSE 76; RESP 16; TEMP 37.3; O2SAT 95
[2022-05-17] VITALS (7 sets, daily range): BP systolic 108–123; BP diastolic 55–62; PULSE 67–76; RESP 16–18; TEMP 36.1–37.2; O2SAT 95–97
[2022-05-17 06:43] LABS: Hematocrit 30.7 % (42.0-52.0); Mean Corpuscular HGB Conc 32.6 g/dl (31.0-36.0); Mean Corpuscular Hemoglobin 27.4 pg (27.0-33.0); Mean Corpuscular Volume 84.1 fL (80.0-98.0); Mean Platelet Volume 9.3 fL (9.4-12.4); Platelet Count 577 X10*3/uL (160-400); Red Blood Count 3.65 X10*6/uL (4.60-5.80); Red Cell Distribution Width 12.6 % (11.0-16.0); White Blood Count 9.7 X10*3/uL (4.8-10.8)
[2022-05-17 07:05] LABS: Anion Gap 13 (12-20); Blood Urea Nitrogen 13 mg/dL (9-16); Calcium 8.3 mg/dL (8.4-10.2); Carbon Dioxide 29 mmol/L (22-29); Chloride 98 mmol/L (96-108); Creatinine Clr Calc Pharmacy 164.9; Estimated Glomerular Filt Rate > 60; Glucose Random 93 mg/dL (60-115); Potassium 4.6 mmol/L (3.3-5.1); Sodium 135 mmol/L (135-145)
[2022-05-17] MEDS: methADONE HCl 20 MG/2 ML ORAL.CONC 60 MG PO (09:51)
[2022-05-17] MEDS: cefTRIAXone sodium 2 GM in 0.9 % Sodium Chloride 50 ML IV (09:52)
[2022-05-17] MEDS: 0.9 % Sodium Chloride Flush 3 ML SYRINGE IVFLUSH ×3 (09:52→21:29)
[2022-05-17] MEDS: Acetaminophen 325 MG TABLET 650 MG PO (09:53)
[2022-05-17] MEDS: guaiFENesin DM 200/20/10 ML 10 ML SYRUP PO ×3 (09:53→21:26)
--- NOTE | 2022-05-17 12:10 | MHC.RECOVRN ---
T/W met w/ pt, pt alert, sitting up in chair at window, brighter affect. Pt states feeling a better today then yesterday. T/W and pt discussed methadone dose, pt states feels good/stable at current dose. Pt reminded Addiction RN will be checking in tomorrow.
--- NOTE | 2022-05-17 13:26 | P.PNTS_ITS ---
Subjective Subjective Date of Service: 05/17/22 Interval history: Patient received first dose of tPA/DNase yesterday - had to unclamp the tube about 1 hour early due to patient discomfort. States he almost due to complaints of pain. At that time he had no hemodynamic instability and CXR showed no acute issues while clamped. Patient felt much improved once tube was open and has had just some discomfort around the chest tube insertion site overnight. Denies any worsening SOB, DANIELSON, lightheadedness, dizziness, nausea, fever, chills, abdominal pain, chest pain at current time. Chest tube drained about 180cc of sang/serosang drainage after 1st dose of chemical decort. Patient hesitant about 2nd dose, but is willing to allow it. Results: Laboratory Results - last 24 hr 05/17/22 05/17/22 05:46 05:46 WBC 9.7 RBC 3.65 L Hgb 10.0 L Hct 30.7 L MCV 84.1 MCH 27.4 MCHC 32.6 RDW 12.6 Plt Count 577 H MPV 9.3 L Absolute Nucleated RBC 0.000 Nucleated RBC % (auto) 0.0 Sodium 135 Potassium 4.6 Chloride 98 Carbon Dioxide 29 Anion Gap 13 BUN 13 D Creatinine 0.63 Estim Creat Clear Calc 164.9 Estimated GFR > 60 Random Glucose 93 Calcium 8.3 L D Impressions Chest X-Ray 05/16/22 17:52 IMPRESSION: Aside from placement of a right-sided chest tube, the examination is not significantly changed when compared to 05/12/2022 with overall stable right-sided pleural effusion and right basilar opacities. Chest X-Ray 05/17/22 07:20 IMPRESSION: No interval change Physical Exam Vital Signs: Vital Signs: Last Vital Signs Temp 97.6 F 05/17/22 11:36 Pulse 70 05/17/22 11:36 Resp 18 05/17/22 11:36 BP 116/62 05/17/22 11:36 Pulse Ox 96 05/17/22 11:36 O2 Del Method 05/17/22 11:36 O2 Flow Rate 2 05/15/22 11:52 BMI result Body Mass Index 21.5 General: No acute distress, resting comfortably in bed, well developed Head: Normocephalic, atraumatic, symmetric Eyes: Sclera anicteric, eyelids without edema or erythema, +EOMS intact ENT: Oral mucosa and tongue are moist without lesions or exudates Neck: Soft, supple, symmetric, trachea midline, no crepitus Cardiovascular: Regular rate and rhythm, no murmur/rubs/gallops, BUE and BLE without edema, no calf tenderness bilaterally Respiratory: Lungs CTA B, breathing nonlabored, speaking in full sentences, on room air. No use of accessory muscles. Right pigtail chest tube x 1 to [facility] on -20 suction, sang/serosang drainage, no air leak. No crepitus. Gastrointestinal: Soft, non-tender, non-distended, +normoactive bowel sounds. Skin: Warm and dry throughout, no rashes Neurological: Alert and oriented x 3, no focal neurological deficit noted Genitourinary: Deferred Psychiatric: No agitation, appropriate affect Procedures Date of Service Date of Service: 05/17/22 Progress Note: A&P Assessment and plan (1) Pleural effusion: Status: Acute Assessment and Plan: Mr. Jett is a 31 year old male with a history of polysubstance abuse who was found to have pneumonia, likely endocarditis, and a loculated right pleural effusion. s/p IR pigtail placement on 05/15/2022. * Loculated effusion will require decortication.? For now, we will trial chemical decortication with tPA/DNAse.? If this does not show significant improvement on followup scan, will likely need surgical decortication. * First dose tPA/DNAse given yesterday with some response --> 180cc output since. Had to unclamp early due to patient discomfort. * Patient hesitant, but willing to receive 2nd dose today. Educated him that he will be monitored and should he have significant discomfort the tube can be unclamped early. However, ideally the medication would be allowed to dwell for the full 6 hours for it to be most effective, but that is contingent on patient symptoms and response. * tPA 4mg in 50cc NS given through right chest tube @ 1:30pm without issue.? Will leave tube clamped x 2 hours, then I will return to give DNAse. * Morning CXR ordered. * Continue IV abx per ID. * Pulmonary toilet: IS, flutter valve, ambulation * Patient should be getting OOB ambulating in the hallways at least 3-4 times daily and should be OOB to chair for all meals. Will evaluate patient response to 2nd dose tPA/DNAse and either give 3rd dose tomorrow, or repeat CT scan tomorrow. (2) Pneumonia: Status: Acute (3) Polysubstance abuse: Status: Acute (4) Endocarditis, suspected: Status: Acute Time Spent With Patient Time: Total time spent is greater than 50% in coordination of care (as documented) at patient's floor/unit and/or counseling patient: Quality Stroke Does the patient have a stroke diagnosis?: No VTE Prior VTE?: No VTE Risk Level:: Medical - moderate - high VTE Device Contraindication: N/A - Device Ordered VTE Drug Contraindication: N/A - Med Ordered
--- NOTE | 2022-05-17 13:28 | P.PNIM_ITS ---
Subjective Subjective Date of Service: 05/17/22 Interval History: Feeling better this morning denies shortness of breath, denies pain, yesterday developed to right chest shoulder and abdomen around 17:00, therefore un clamp the chest tube, 1 hour early,repeat chest x-ray showed no new findings, no fevers, no chills this morning, no other acute issues overnight. 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 Neck left left IJ catheter.? Supple CVS? regular rate rhythm, systolic murmur Respiratory lungs diminished breath sounds right base,no respiratory distress, no wheeze, no rhonchi. Gastrointestinal abdomen soft, nontender, bowel sounds audible, no guarding , no rigidity. Extremities no edema. Neuro nonfocal , speech clear. Psych appropriate affect Objective Data Active Medications Acetaminophen (Acetaminophen 325 Mg Tablet) 650 mg PO Q6H PRN PRN Reason: Pain, Mild (Pain Scale 1-3) Last Admin: 05/17/22 09:53 Dose: 650 mg Documented By: KAUR Clonidine HCl (Clonidine Hcl 0.1 Mg Tablet) 0.1 mg PO TID PRN; Protocol [facility] Last Admin: 05/14/22 04:43 Dose: 0.1 mg Documented By: MORRINL Doxycycline Hyclate (Doxycycline Hyclate 100 Mg Tablet) 100 mg PO Q12H COUNTS INCLUDE 234 BEDS AT THE [facility] Last Admin: 05/17/22 09:53 Dose: 100 mg Documented By: KAUR Enoxaparin Sodium (Enoxaparin Sodium 40 Mg/0.4 Ml Syringe) 40 mg SUBCUT Q24H COUNTS INCLUDE 234 BEDS AT THE [facility] Last Admin: 05/16/22 11:54 Dose: 40 mg Documented By: KAUR Guaifenesin/Dextromethorphan (Guaifenesin Dm 200/20/10 Ml 10 Ml Syrup) 10 ml PO Q6H COUNTS INCLUDE 234 BEDS AT THE [facility] Last Admin: 05/17/22 09:53 Dose: 10 ml Documented By: KAUR Ceftriaxone Sodium 2 gm/ (Sodium Chloride) 50 mls @ 100 mls/hr IV Q24H COUNTS INCLUDE 234 BEDS AT THE [facility] Last Infusion: 05/17/22 11:06 Dose: 0 mls/hr Documented By: KAUR Dornase Jem 5 mg/ Sodium (Chloride) 30 mls @ 0 mls/hr INTRAPLEUR ONCE ONE Stop: 05/17/22 15:01 Methadone HCl (Methadone Hcl 20 Mg/2 Ml Oral.Conc) 60 mg PO DAILY COUNTS INCLUDE 234 BEDS AT THE [facility] Last Admin: 05/17/22 09:51 Dose: 60 mg Documented By: KAUR Ondansetron HCl (Ondansetron Hcl 4 Mg/2 Ml Vial) 4 mg IVPUSH Q8H PRN PRN Reason: Nausea and Vomiting Sodium Chloride (0.9 % Sodium Chloride Flush 3 Ml Syringe) 3 ml IVFLUSH QSHIFT COUNTS INCLUDE 234 BEDS AT THE [facility] Last Admin: 05/17/22 09:52 Dose: 3 ml Documented By: KAUR Labs CBC & Chem 7: 05/17/22 05:46 05/17/22 05:46 Labs: Laboratory Results - last 24 hr 05/17/22 05/17/22 05:46 05:46 MCV 84.1 MCH 27.4 MCHC 32.6 RDW 12.6 Plt Count 577 H MPV 9.3 L Absolute Nucleated RBC 0.000 Nucleated RBC % (auto) 0.0 Anion Gap 13 Estim Creat Clear Calc 164.9 Estimated GFR > 60 Random Glucose 93 Calcium 8.3 L D Microbiology Microbiology Results: Microbiology 05/12/22 10:22 Blood Culture - Final Blood - Venous No growth after 5 days. 05/12/22 10:22 Blood Culture - Final Blood - Venous No growth after 5 days. 05/15/22 11:00 Gram Stain - Final Thoracentesis Fluid Anaerobic Culture - Preliminary No growth to date. Body Fluid Culture - Preliminary No growth to date. Assessment and Plan (1) Pneumonia: Status: Acute (2) Opioid use disorder: Status: Acute (3) Pleural effusion: Status: Acute (4) Endocarditis, suspected: Status: Acute Plan 31yo M with history of injection heroin + cocaine abuse presenting with cough, dyspnea, and tactile fever and found to have pneumonia with small pleural effusion. 1.Pneumonia with right loculated effusion/compressive atelectasis consolidation right lower lobe No fevers in last 24, WBC normalized, feels better than yesterday denies pain no shortness of breath on iv Ceftriaxone/doxycycline day8 - 2D echo showed 0.46 cm density questionable aortic vegetation versus clot. - blood cultures negative thus far obtain on 05/09 and 05/12 - underwent thoracocentesis 05/15 8.5 F chest tube placed minimal drainage overnight, patient seen by thoracic surgery underwent chemical decortication with tPA/DNase last evening, developed significant right-sided pain once chest tube was clamped, thoracic surgery planned to repeat treatment today, follow clinical course closely, if chemical decortication shows no significant improvement will likely need surgical decortication Continue cough medication, encourage incentive spirometry and out of bed to chair Case discussed with Cardiology they recommend to treat with prolonged IV antibiotic for presumed of endocarditis, will discuss with ID regarding need for BRAULIO Will repeat blood cultures, chest x-ray this a.m. is unchanged 2.Hypokalemia resolved 3.Opioid withdrawal/disorder - continue methadone patient feeling better on current dose, is being closely followed by Addiction Team 4. Hypoalbuminemia continue protein supplement, likely due to poor nutrition DVT prophylaxis continue Lovenox Full code patient will require ongoing hospitalization for IV antibiotics to treat pneumonia and for further evaluation of aortic valve density and loculated effusion Quality Stroke Does the patient have a stroke diagnosis?: No VTE Prior VTE?: No VTE Risk Level:: Medical - moderate - high VTE Device Contraindication: N/A - Device Ordered VTE Drug Contraindication: N/A - Med Ordered
[2022-05-18 03:15] VITALS: BP 125/67; PULSE 76; RESP 17; TEMP 37.1; O2SAT 96
[2022-05-18 08:00] VITALS: BP 129/72; PULSE 71; RESP 18; TEMP 36.9; O2SAT 96
[2022-05-18] MEDS: methADONE HCl 20 MG/2 ML ORAL.CONC 60 MG PO (08:00)
[2022-05-18] MEDS: 0.9 % Sodium Chloride Flush 3 ML SYRINGE IVFLUSH ×3 (08:01→20:08)
[2022-05-18] MEDS: cefTRIAXone sodium 2 GM in 0.9 % Sodium Chloride 50 ML IV (08:12)
--- NOTE | 2022-05-18 11:34 | MHC.RECOVRN ---
Met with pt in 368 to follow up regarding methadone dose. Pt sitting in bed, awake but drowsy. Pt reports decrease in evening withdrawal symptoms since increasing to 60 mg methadone daily. Pt continues to report some diaphoresis but would like to stay at 60 mg. Pt appears comfortable, denies questions or concerns at this time. T/w available as needed.
[2022-05-18 11:57] VITALS: BP 116/62; PULSE 77; RESP 18; TEMP 36.3; O2SAT 97
[2022-05-18] MEDS: Enoxaparin Sodium 40 MG/0.4 ML SYRINGE SUBCUT (12:06)
[2022-05-18 15:09] VITALS: BP 120/70; PULSE 75; RESP 18; TEMP 36; O2SAT 96
--- NOTE | 2022-05-18 15:39 | P.PNIM_ITS ---
Subjective Subjective Date of Service: 05/19/22 Interval History: Patient feeling better, denies shortness of breath, no cough, no chest pain tolerating diet with no nausea vomiting diarrhea. 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 Neck left I J catheter.? Suppl e CVS? regular rat e rhythm, systolic murmur Respirator y lungs diminished breath sounds rig ht base,no respira tory distress, no wheeze, no rhonchi . Gastrointestinal abdomen soft, non tender, bowel soun ds audible, no gua rding , no rigidit y. Extremities no edema. Neuro nonfo belen , speech clear . Psych appropriat e affect Objective Data Active Medications Acetaminophen (Acetaminophen 325 Mg Tablet) 650 mg PO Q6H PRN PRN Reason: Pain, Mild (Pain Scale 1-3) Last Admin: 05/17/22 09:53 Dose: 650 mg Documented By: KAUR Clonidine HCl (Clonidine Hcl 0.1 Mg Tablet) 0.1 mg PO TID PRN; Protocol PRN Reason: [facility] Last Admin: 05/14/22 04:43 Dose: 0.1 mg Documented By: DARCY Doxycycline Hyclate (Doxycycline Hyclate 100 Mg Tablet) 100 mg PO Q12H [facility] Last Admin: 05/18/22 08:00 Dose: 100 mg Documented By: JUAN Enoxaparin Sodium (Enoxaparin Sodium 40 Mg/0.4 Ml Syringe) 40 mg SUBCUT Q24H [facility] Last Admin: 05/18/22 12:06 Dose: 40 mg Documented By: JUAN Guaifenesin/Dextromethorphan (Guaifenesin Dm 200/20/10 Ml 10 Ml Syrup) 10 ml PO Q6H [facility] Last Admin: 05/18/22 11:06 Dose: Not Given Documented By: JUAN Non-Admin Reason: Patient Refused Ceftriaxone Sodium 2 gm/ (Sodium Chloride) 50 mls @ 100 mls/hr IV Q24H [facility] Last Infusion: 05/18/22 08:54 Dose: 0 mls/hr Documented By: JUAN Methadone HCl (Methadone Hcl 20 Mg/2 Ml Oral.Conc) 60 mg PO DAILY [facility] Last Admin: 05/18/22 08:00 Dose: 60 mg Documented By: JUAN Ondansetron HCl (Ondansetron Hcl 4 Mg/2 Ml Vial) 4 mg IVPUSH Q8H PRN PRN Reason: Nausea and Vomiting Sodium Chloride (0.9 % Sodium Chloride Flush 3 Ml Syringe) 3 ml IVFLUSH QSHIFT [facility] Last Admin: 05/18/22 08:01 Dose: 3 ml Documented By: JUAN Labs CBC & Chem 7: 05/17/22 05:46 05/17/22 05:46 Microbiology Microbiology Results: Microbiology 05/15/22 11:00 Gram Stain - Final Thoracentesis Fluid Anaerobic Culture - Preliminary No growth to date. Body Fluid Culture - Final No growth after 2 days 05/12/22 10:22 Blood Culture - Final Blood - Venous No growth after 5 days. 05/12/22 10:22 Blood Culture - Final Blood - Venous No growth after 5 days. Assessment and Plan (1) Pneumonia: Status: Acute (2) Opioid use disorder: Status: Acute (3) Pleural effusion: Status: Acute (4) Endocarditis, suspected: Status: Acute Plan 31yo M with history of injection heroin + cocaine abuse presenting with cough, dyspnea, and tactile fever and found to have pneumonia with small pleural effusion. 1.Pneumonia with right loculated effusion/compressive atelectasis consolidation right lower lobe No fevers , WBC normalized, feels better, denies pain, no shortness of breath on iv Ceftriaxone/doxycycline day 9 - 2D echo showed 0.46 cm density questionable aortic vegetation versus clot. - blood cultures negative thus far obtain on 05/09 and 05/12, repeat blood cultures 05/18 pending - underwent thoracocentesis 05/15 8.5 F chest tube placed minimal drainage overnight, patient seen by thoracic surgery underwent chemical decortication with tPA/DNase x 2 (over weekend) CT chest obtained report pending, if chemical decortication shows no significant improvement will need surgical decortication Continue cough medication, encourage incentive spirometry and out of bed to chair Case discussed with Dr. Brewer she recommend BRAULIO, if no vegetation noted and will not require 6 weeks of IV antibiotic treatment Will request Cardiology for BRAULIO, repeat blood cultures pending 2.Hypokalemia resolved 3.Opioid withdrawal/disorder - continue methadone , continue current dose, no withdrawal symptoms, being closely followed by Addiction Team 4. Hypoalbuminemia continue protein supplement DVT prophylaxis continue Lovenox Full code patient will require ongoing hospitalization for IV antibiotics to treat pneumonia and for further evaluation of aortic valve density and loculated effusion Quality Stroke Does the patient have a stroke diagnosis?: No VTE Prior VTE?: No VTE Risk Level:: Medical - moderate - high VTE Device Contraindication: N/A - Device Ordered VTE Drug Contraindication: N/A - Med Ordered
--- NOTE | 2022-05-18 15:46 | MHC.CM.PN ---
Per ROUNDS discussion patient is not yet medically cleared for discharge R/T patient experiencing chest decortication, repeat blood cultures. D/C plan continues to be Home self-care. Patient tolerating 60 mgs of Methadone. CM will continue to follow for discharge needs
[2022-05-18] MEDS: guaiFENesin DM 200/20/10 ML 10 ML SYRUP PO ×2 (17:30→23:35)
--- NOTE | 2022-05-18 17:47 | P.PNTS_ITS ---
Subjective Subjective Date of Service: 05/18/22 Interval history: Patient was seen and examined this afternoon. He received tPA /dornase over the weekend with only 500 cc of serous sanguinous fluid output. His chest tube has remained on -20 low wall suction with no detectable air leak. His white count has trended downward to now 9.[address] scan was performed today which continues to show right-sided loculated pleural effusion with minimal response to tPA/dornase. Patient was informed he will be NPO tonight at midnight for right-sided VATS total decortication. Remaining 10 point review of systems negative at this time. Physical Exam Vital Signs: Vital Signs: Last Vital Signs Temp 96.8 F 05/18/22 15:09 Pulse 75 05/18/22 15:09 Resp 18 05/18/22 15:09 BP 120/70 05/18/22 15:09 Pulse Ox 96 05/18/22 15:09 O2 Del Method 05/18/22 15:09 O2 Flow Rate 2 05/15/22 11:52 BMI result Body Mass Index 21.5 Const: Other: General awake aler t,in no acute dist ress.? Neck left I J catheter.? Suppl e CVS? regular rat e rhythm, systolic murmur Respirator y lungs diminished breath sounds rig ht base,no respira tory distress, no wheeze, no rhonchi . Gastrointestinal abdomen soft, non tender, bowel soun ds audible, no gua rding , no rigidit y. Extremities no edema. Neuro nonfo belen , speech clear . Psych appropriat e affect General: cooperative HEENT: Head: Yes normal to inspection Face and sinus: Yes normal facial exam Mouth: Normal oral and palatal mucosa present Teeth and gingiva: dentition normal Eyes: General: appearance normal, both eyes and all related structures Pupils: Equal, round and reactive pupils present Chest: Other: right-sided pigtail catheter remains attached to -20 low wall suction with approximately 500 cc of serosanguineous fluid output and no detectable a Resp: Other: Clear to auscultation bilaterally. No rales rhonchi or wheezes Effort & Inspection: normal respiratory effort Cardio: Other: no S4; positive S1-S2; no S3. 2/6 systolic murmur best heard over the apex Rate: regular rate Rhythm: regular rhythm Heart sounds: Murmur heart sound present (2/6 LUIS) GI: Palpation (GI): Soft to palpation and nontender : General: Yes no CVA tenderness Back/Spine/Pelvis: Back: no CVA tenderness Skin: General skin exam: no rashes or lesions noted Neuro: General: moves all extremities Cranial nerves: Yes Equal, round and reactive pupils present Extrem: Other: no edema bilaterally General: Yes normal to inspection Psych: Appearance: grossly normal Procedures Date of Service Date of Service: 05/18/22 Progress Note: A&P Assessment and plan (1) Pleural effusion: Status: Acute Assessment and Plan: Mr. Jett is a 31 year old male with a history of polysubstance abuse who was found to have pneumonia, likely endocarditis, and a loculated right pleural effusion. s/p IR pigtail placement on 05/15/2022. * Morning chest CT scan shows minimal response to pleural chemical decortication with tPA/dornase * Loculated effusion will require right-sided VATS mechanical decortication which is scheduled for 15:00 tomorrow. * Type and screen, INR and PT * Morning CXR ordered. * Continue IV abx per ID. * Pulmonary toilet: IS, flutter valve, ambulation * Patient should be getting OOB ambulating in the hallways at least 3-4 times daily and should be OOB to chair for all meals. (2) Pneumonia: Status: Acute (3) Polysubstance abuse: Status: Acute (4) Endocarditis, suspected: Status: Acute Time Spent With Patient Time: Total time spent is greater than 50% in coordination of care (as documented) at patient's floor/unit and/or counseling patient: Quality Stroke Does the patient have a stroke diagnosis?: No VTE Prior VTE?: No VTE Risk Level:: Medical - moderate - high VTE Device Contraindication: N/A - Device Ordered VTE Drug Contraindication: N/A - Med Ordered
[2022-05-18 19:17] LABS: INTERNATIONAL NORM RATIO 1.1 (0.9-1.1); Prothrombin Time 12.6 SEC (10.0-13.1)
[2022-05-18 19:41] VITALS: BP 108/58; PULSE 76; RESP 18; TEMP 36.7; O2SAT 96
[2022-05-18] MEDS: Acetaminophen 325 MG TABLET 650 MG PO (20:08)
[2022-05-18 23:42] VITALS: BP 115/56; PULSE 77; RESP 17; TEMP 36.4; O2SAT 96
[2022-05-19 04:00] VITALS: BP 112/55; PULSE 74; RESP 17; TEMP 36.4; O2SAT 98
[2022-05-19 07:19] VITALS: BP 113/61; PULSE 70; RESP 18; TEMP 36.7; O2SAT 97
[2022-05-19] MEDS: cefTRIAXone sodium 2 GM in 0.9 % Sodium Chloride 50 ML IV (07:28)
[2022-05-19] MEDS: 0.9 % Sodium Chloride Flush 3 ML SYRINGE IVFLUSH ×2 (07:29→17:19)
[2022-05-19] MEDS: methADONE HCl 20 MG/2 ML ORAL.CONC 60 MG PO (08:23)
--- NOTE | 2022-05-19 10:36 | P.PNCA_ITS ---
Subjective Subjective Date of Service: 05/19/22 Interval history: He feels fine. Denies any cardiac symptoms. Review of Systems Review of Systems Yes all other systems are reviewed and are negative Constitutional: Reports as per HPI Eyes: Reports as per HPI Reports as per HPI Cardiovascular: Reports as per HPI, Denies acrocyanosis, Denies cool extremi ties, Denies chest pain, Denies leg edema, Denies lightheadedness, Denies palpitations and Denies dyspnea Respiratory: Reports as per HPI, Reports no additional respiratory complaints and Denies dyspnea Gastrointestinal: Reports as per HPI and Reports no additional gastrointestinal complaints Genitourinary: Reports no additional male genitourinary complaints and Reports as per HPI Musculoskeletal: Reports no additional musculoskeletal complaints and Reports as per HPI Skin/Breast: Reports system reviewed and no additional complaints, except as docu Reports system reviewed and no additional complaints, except as documented and Reports as per HPI Psychiatric: Reports no additional psychiatric complaints and Reports as per HPI Endocrine: Reports no additional endocrine complaints, Reports as per HPI and Denies palpitations Hematologic/Lymphatic: Reports no additional hematologic/lymphatic complaints and Reports as per HPI Allergic/Immunologic: Reports no additional allergic/immunologic complaints and Reports as per HPI Physical Exam Vital Signs: Last Vital Signs Temp 98.0 F 05/19/22 07:19 Pulse 70 05/19/22 07:19 Resp 18 05/19/22 07:19 BP 113/61 05/19/22 07:19 Pulse Ox 97 05/19/22 07:19 O2 Del Method 05/19/22 07:19 O2 Flow Rate 2 05/15/22 11:52 BMI result Body Mass Index 21.5 Const General: comfortable and no acute distress Orientation/consciousness: patient oriented x3 HEENT Other: Unremarkable Head: Yes normal to inspection Neck Neck: Yes normal visual inspection Chest Chest palpation & inspection: normal inspection of the chest Resp Auscultation: clear to auscultation bilaterally Cardio Palpation: normal PMI Heart sounds: S1 normal heart sound present, S2 normal heart sound present, no gallops, no murmurs and no rubs GI Palpation (GI): Soft to palpation Back/Spine/Pelvis Other: unremarkable Skin General skin exam: no rashes or lesions noted Neuro General: patient oriented x3 Extrem General: Yes normal to inspection Psych Mental Status: mental status grossly normal Objective Labs and Meds Result diagrams: 05/17/22 05:46 05/17/22 05:46 Lab results: Laboratory Results - last 24 hr 05/18/22 05/18/22 18:49 19:59 PT 12.6 INR 1.1 Blood Type O Positive Antibody Screen NEGATIVE Imaging Radiologist's impression: Impressions Chest Tube Insertion 05/15/22 11:41 IMPRESSION: Successful CT fluoroscopy-guided right chest catheter insertion. Results were called by phone to Dr. Cosme and made aware of this situation and that the patient may need TPA. Also thoracic surgical consult will be required with the bigger chest tube for better chest drainage and if required decortication. Chest CT 05/18/22 08:48 IMPRESSION: Interval decrease in the now small right loculated pleural effusion. Pigtail chest tube in the right posterior costophrenic sulcus. Small amount of residual fluid and air in this region or hydropneumothorax suggestive of a partially trapped right lower lobe. Airspace disease in the right lower lobes probably representing pneumonia. Fleischner guidelines were followed. Chest X-Ray 05/19/22 06:30 IMPRESSION: Persistent right basilar opacity and small pleural effusion, similar to prior. Pneumothorax component at the right base is not as well demonstrated as on recent CT. Progress Note: A&P Assessment and plan (1) Polysubstance abuse: Status: Acute (2) Pleural effusion: Status: Acute (3) Aortic valve mass: Status: Acute Plan Data reviewed. So far, essentially all blood cultures have been consistently negative. The blood cultures from the 09 of May had been negative for 5 days. Subsequent culture from the 12 of May was also negative. Blood culture from is pending. Fluid from thoracentesis also has negative cultures. In the transthoracic echocardiogram, thought to have a 0.46 cm mobile density in the right aortic valve cusp. Thought to be either vegetation versus clot. However, no aortic regurgitation. Overall, in the absence of cultures, less likely to be an active infection the aortic valve. Clinically, he does not sound toxic not tachycardic, white count has normalized. Discussed with Dr. Magno villeda to perform repeat transthoracic echocardiogram in 2 weeks or so to reassess the aortic valve. Then will arrange follow-up. Time Spent With Patient Time: Total time spent is greater than 50% in coordination of care (as documented) at patient's floor/unit and/or counseling patient: 35min. Progress Note: Quality Stroke Does the patient have a stroke diagnosis?: No Procedures Date of Service Date of Service: 05/19/22
[2022-05-19 11:33] VITALS: BP 105/57; PULSE 74; RESP 18; TEMP 36.8; O2SAT 96
[2022-05-19] MEDS: guaiFENesin DM 200/20/10 ML 10 ML SYRUP PO ×3 (11:57→22:58)
[2022-05-19] MEDS: Enoxaparin Sodium 40 MG/0.4 ML SYRINGE SUBCUT (11:58)
--- NOTE | 2022-05-19 13:27 | HO.PM.IMPN ---
Subjective Subjective Date of Service: 05/20/22 Interval History: Patient resting comfortably offers no acute complaints of chest pain, no shortness of breath, complaining of mild chest discomfort with deep breathing, no fevers no chills no acute issues over night. 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 Neck left left IJ catheter.? Supple CVS? regular rate rhythm, systolic murmur Respiratory lungs diminished breath sounds right base,no respiratory distress, no wheeze, no rhonchi. Gastrointestinal abdomen soft, nontender, bowel sounds audible, no guarding , no rigidity. Extremities no edema. Neuro nonfocal , speech clear. Psych appropriate affect Objective Data Active Medications Acetaminophen (Acetaminophen 325 Mg Tablet) 650 mg PO Q6H PRN PRN Reason: Pain, Mild (Pain Scale 1-3) Last Admin: 05/18/22 20:08 Dose: 650 mg Documented By: RAVINDER Clonidine HCl (Clonidine Hcl 0.1 Mg Tablet) 0.1 mg PO TID PRN; Protocol PRN Reason: mariselacristopher Last Admin: 05/14/22 04:43 Dose: 0.1 mg Documented By: DARCY Enoxaparin Sodium (Enoxaparin Sodium 40 Mg/0.4 Ml Syringe) 40 mg SUBCUT Q24H [facility] Last Admin: 05/19/22 11:58 Dose: 40 mg Documented By: JUAN Guaifenesin/Dextromethorphan (Guaifenesin Dm 200/20/10 Ml 10 Ml Syrup) 10 ml PO Q6H [facility] Last Admin: 05/19/22 11:57 Dose: 10 ml Documented By: JUAN Ceftriaxone Sodium 2 gm/ (Sodium Chloride) 50 mls @ 100 mls/hr IV Q24H [facility] Last Infusion: 05/19/22 08:25 Dose: 0 mls/hr Documented By: JUAN Methadone HCl (Methadone Hcl 20 Mg/2 Ml Oral.Conc) 60 mg PO DAILY [facility] Last Admin: 05/19/22 08:23 Dose: 60 mg Documented By: JUAN Ondansetron HCl (Ondansetron Hcl 4 Mg/2 Ml Vial) 4 mg IVPUSH Q8H PRN PRN Reason: Nausea and Vomiting Sodium Chloride (0.9 % Sodium Chloride Flush 3 Ml Syringe) 3 ml IVFLUSH QSHIFT [facility] Last Admin: 05/19/22 07:29 Dose: 3 ml Documented By: JUAN Labs CBC & Chem 7: 05/17/22 05:46 05/17/22 05:46 Labs: Laboratory Results - last 24 hr 05/18/22 05/18/22 18:49 19:59 PT 12.6 INR 1.1 Blood Type O Positive Antibody Screen NEGATIVE Microbiology Microbiology Results: Microbiology 05/18/22 10:07 Blood Culture - Preliminary Blood - Venous No growth after 24 hours. 05/18/22 10:07 Blood Culture - Preliminary Blood - Venous No growth after 24 hours. 05/15/22 11:00 Gram Stain - Final Thoracentesis Fluid Anaerobic Culture - Preliminary No growth to date. Body Fluid Culture - Final No growth after 2 days Assessment and Plan (1) Pneumonia: Status: Acute (2) Opioid use disorder: Status: Acute (3) Pleural effusion: Status: Acute (4) Endocarditis, suspected: Status: Acute Plan 31yo M with history of injection heroin + cocaine abuse presenting with cough, dyspnea, and tactile fever and found to have pneumonia with small pleural effusion. 1.Pneumonia with right loculated effusion/compressive atelectasis consolidation right lower lobe No fevers , WBC normalized, feels better, denies pain, no shortness of breath on iv Ceftriaxone/doxycycline day 07/10 - 2D echo showed 0.46 cm density questionable aortic vegetation versus clot case discussed with Dr. Judy Brewer and field laboratory operator Dr. Elias since patient blood cultures are negative , and he is hemodynamically stable with no chest pain, no shortness of breath will hold BRAULIO, will repeat transthoracic echo in 2 weeks to assess aortic density, - blood cultures negative thus far obtain on 05/09 and 05/12, repeat blood cultures 05/18 no growth times 24 hours - underwent thoracocentesis 05/15 8.5 F chest tube placed minimal drainage overnight, patient seen by thoracic surgery underwent chemical decortication with tPA/DNase x 2 (over weekend) CT chest showed small residual pleural fluid and air in same region/hydropneumothorax suggestive of partially trapped right lower lobe airspace disease in the right lower lobes , repeat chest x-ray today shows small pleural effusion, pneumothorax component right base not well visualized, will discuss further management with thoracic surgery question to remove catheter Continue cough medication, encourage incentive spirometry and out of bed to chair 2.Hypokalemia resolved 3.Opioid withdrawal/disorder - continue methadone , no withdrawal symptoms, being closely followed by Addiction Team, counseling done strongly advised to abstain from illicit drug use 4. Hypoalbuminemia continue protein supplement DVT prophylaxis continue Lovenox Full code patient will require ongoing hospitalization for IV antibiotics to treat pneumonia and for further evaluation of aortic valve density and loculated effusion Quality Stroke Does the patient have a stroke diagnosis?: No VTE Prior VTE?: No VTE Risk Level:: Medical - moderate - high VTE Device Contraindication: N/A - Device Ordered VTE Drug Contraindication: N/A - Med Ordered
[2022-05-19 15:28] VITALS: BP 119/68; PULSE 78; RESP 17; TEMP 36.6; O2SAT 96
--- NOTE | 2022-05-19 16:10 | P.PNTS_ITS ---
Subjective Subjective Date of Service: 05/19/22 Interval history: Patient was seen and examined this morning. Upon further review of his chest CT scan performed yesterday it was deemed that his right-sided pleural effusion has decreased in size and now only remains a 1 to 2 cm residual pleural fluid collection. Patient was instructed he would not require to go to the OR today for mechanical decortication. Physical Exam Vital Signs: Vital Signs: Last Vital Signs Temp 97.9 F 05/19/22 15:28 Pulse 78 05/19/22 15:28 Resp 17 05/19/22 15:28 BP 119/68 05/19/22 15:28 Pulse Ox 96 05/19/22 15:28 O2 Del Method 05/19/22 15:28 O2 Flow Rate 2 05/15/22 11:52 BMI result Body Mass Index 21.5 Const: Other: General awake aler t,in no acute dist ress.? Neck left I J catheter.? Suppl e CVS? regular rat e rhythm, systolic murmur Respirator y lungs diminished breath sounds rig ht base,no respira tory distress, no wheeze, no rhonchi . Gastrointestinal abdomen soft, non tender, bowel soun ds audible, no gua rding , no rigidit y. Extremities no edema. Neuro nonfo belen , speech clear . Psych appropriat e affect General: cooperative HEENT: Head: Yes normal to inspection Face and sinus: Yes normal facial exam Mouth: Normal oral and palatal mucosa present Teeth and gingiva: dentition normal Eyes: General: appearance normal, both eyes and all related structures Pupils: Equal, round and reactive pupils present Chest: Other: right-sided pigtail catheter remains attached to -20 low wall suction with approximately 500 cc of serosanguineous fluid output and no detectable a Resp: Other: Clear to auscultation bilaterally. No rales rhonchi or wheezes Effort & Inspection: normal respiratory effort Cardio: Other: no S4; positive S1-S2; no S3. 2/6 systolic murmur best heard over the apex Rate: regular rate Rhythm: regular rhythm Heart sounds: Murmur heart sound present (2/6 LUIS) GI: Palpation (GI): Soft to palpation and nontender : General: Yes no CVA tenderness Back/Spine/Pelvis: Back: no CVA tenderness Skin: General skin exam: no rashes or lesions noted Neuro: General: moves all extremities Cranial nerves: Yes Equal, round and reactive pupils present Extrem: Other: no edema bilaterally General: Yes normal to inspection Psych: Appearance: grossly normal Procedures Date of Service Date of Service: 05/19/22 Progress Note: A&P Assessment and plan (1) Pleural effusion: Status: Acute Assessment and Plan: Mr. Jett is a 31 year old male with a history of polysubstance abuse who was found to have pneumonia, likely endocarditis, and a loculated right pleural effusion. s/p IR pigtail placement on 05/15/2022. * Morning chest CT scan shows adequate response to pleural chemical decortication with tPA/dornase * .Patient does not require VATS mechanical decortication at this time * Right-sided pigtail catheter should be placed to waterseal tonight at midnight. * Pending chest x-ray results tomorrow a.m. and fluid output possible removal of pigtail catheter tomorrow. * Morning CXR ordered. * Continue IV abx per ID. * Pulmonary toilet: IS, flutter valve, ambulation * Patient should be getting OOB ambulating in the hallways at least 3-4 times daily and should be OOB to chair for all meals. (2) Pneumonia: Status: Acute (3) Polysubstance abuse: Status: Acute (4) Endocarditis, suspected: Status: Acute Time Spent With Patient Time: Total time spent is greater than 50% in coordination of care (as documented) at patient's floor/unit and/or counseling patient: Quality Stroke Does the patient have a stroke diagnosis?: No VTE Prior VTE?: No VTE Risk Level:: Medical - moderate - high VTE Device Contraindication: N/A - Device Ordered VTE Drug Contraindication: N/A - Med Ordered
[2022-05-19 19:59] VITALS: BP 112/58; PULSE 82; RESP 16; TEMP 36.6; O2SAT 100
[2022-05-19 23:46] VITALS: BP 109/59; PULSE 78; RESP 17; TEMP 36.2; O2SAT 97
[2022-05-20] VITALS (7 sets, daily range): BP systolic 110–131; BP diastolic 56–67; PULSE 61–80; RESP 16–18; TEMP 36.4–36.8; O2SAT 94–97
--- NOTE | 2022-05-20 04:03 | PC.NURSE ---
CHEST TUBE TO WATER SEAL PER DR PAREDES ORDERS AND IN NURSING NOTIFICATION. DISCUSSED WITH NURSING OFFICE SWEEPER THAT IS TO TURN OFF SUCTION, DONE AT 0000 ORDERED. SINGLE CHAMBER NOTED WITH 600ML AT TURN OFF TIME. WILL CONTINUE TO MONITOR CLOSELY. PT DENIES CHEST PAIN, SOB, OR CHEST PRESSURE. VITALS 97.1-78-17-109/[id number].
[2022-05-20] MEDS: guaiFENesin DM 200/20/10 ML 10 ML SYRUP PO ×3 (10:08→22:09)
[2022-05-20] MEDS: Enoxaparin Sodium 40 MG/0.4 ML SYRINGE SUBCUT (10:08)
[2022-05-20] MEDS: cefTRIAXone sodium 2 GM in 0.9 % Sodium Chloride 50 ML IV (10:08)
[2022-05-20] MEDS: 0.9 % Sodium Chloride Flush 3 ML SYRINGE IVFLUSH ×2 (10:08→16:30)
[2022-05-20] MEDS: methADONE HCl 20 MG/2 ML ORAL.CONC 60 MG PO (10:09)
[2022-05-20] MEDS: Acetaminophen 325 MG TABLET 650 MG PO ×2 (10:22→16:36)
--- NOTE | 2022-05-20 12:52 | MHC.CM.PN ---
EMR REVIEWED, PER HOSPITALIST PLAN FOR CHEST TUBE REMOVAL TODAY AND ANTIC D/C TOMORROW 05/21, PER PT HE IS HOMELESS AND HOPING TO STAY W/HIS MOTHER WHO WILL COME IN TOMORROW, CM WILL CONT TO FOLLOW D/C NEEDS.
--- NOTE | 2022-05-20 13:56 | P.PNTS_ITS ---
Subjective Subjective Date of Service: 05/20/22 Interval history: Patient had repeat CT scan on Wednesday which showed significant improvement in the loculated right pleural effusion. Chest tube has had minimal output since the weekend. Was changed to waterseal yesterday without any issues overnight. Patient continues to state he feels bad . He complains of some discomfort around the chest tube site as well as some occasional shortness of breath although he is vague on the details. Results: Impressions Chest X-Ray 05/20/22 06:10 IMPRESSION: No significant change from prior study. Physical Exam Vital Signs: Vital Signs: Last Vital Signs Temp 98.0 F 05/20/22 11:19 Pulse 72 05/20/22 11:19 Resp 18 05/20/22 11:19 BP 120/67 05/20/22 11:19 Pulse Ox 97 05/20/22 11:19 O2 Del Method 05/20/22 11:19 O2 Flow Rate 2 05/15/22 11:52 BMI result Body Mass Index 21.5 General: No acute distress, resting comfortably in bed, well developed Head: Normocephalic, atraumatic, symmetric Eyes: Sclera anicteric, eyelids without edema or erythema, +EOMS intact ENT: Oral mucosa and tongue are moist without lesions or exudates Neck: Soft, supple, symmetric, trachea midline, no crepitus Cardiovascular: Regular rate and rhythm, no murmur/rubs/gallops, BUE and BLE without edema, no calf tenderness bilaterally Respiratory: Lungs CTA B, breathing nonlabored, speaking in full sentences, on room air. No use of accessory muscles. Right posterior chest pigtail chest tube x1 to atrium on waterseal, about 50 cc serous drainage since last night, no airleak. No crepitus. Gastrointestinal: Soft, non-tender, non-distended, +normoactive bowel sounds. Skin: Warm and dry throughout, no rashes Lymphatic: no cervical, supraclavicular, infraclavicular lymphadenopathy noted Neurological: Alert and oriented x 3, no focal neurological deficit noted Psychiatric: no agitation, depressed affect Procedures Date of Service Date of Service: 05/20/22 Progress Note: A&P Assessment and plan (1) Pleural effusion: Status: Acute Assessment and Plan: Mr. Jett is a 31 year old male with a history of polysubstance abuse who was found to have pneumonia, likely endocarditis, and a loculated right pleural effusion. s/p IR pigtail placement on 05/15/2022, with chemical decortication on 05/16/22 and 05/17/22. * Repeat chest x-ray on Wednesday showed fairly significant decrease in the right- sided pleural effusion. Patient has not been putting out significant amounts of fluid as evident by his chest x-ray today that shows a stable very small right pleural effusion. Patient has no air leak on exam or pneumothorax. * Patient's 1 right-sided pigtail catheter was removed without difficulty. Occlusive dressing was placed over the site and should remain in place for 2 days. Dressing may be removed and left open to air on Wednesday, May 22, 2022. * Patient does not require any further thoracic surgical intervention. He is stable to be discharged from our perspective. Recommend continuing antibiotics per ID recommendations. * Recommend ongoing pulmonary toileting with I-S, flutter valve, and extensive ambulation. Thoracic surgery will be signing off at this time. Please call us back with any questions or concerns. (2) Pneumonia: Status: Acute (3) Polysubstance abuse: Status: Acute (4) Endocarditis, suspected: Status: Acute Time Spent With Patient Time: Total time spent is greater than 50% in coordination of care (as documented) at patient's floor/unit and/or counseling patient: Quality Stroke Does the patient have a stroke diagnosis?: No VTE Prior VTE?: No VTE Risk Level:: Medical - moderate - high VTE Device Contraindication: N/A - Device Ordered VTE Drug Contraindication: N/A - Med Ordered
--- NOTE | 2022-05-20 14:11 | PM.DS ---
DS: Providers Provider Date of Service: 05/21/22 <KRISTEL Denny - Last Filed: 05/21/22 10:58> Date of admission: 05/09/22 11:54 <Yuval Cosme MD - Last Filed: 05/20/22 14:17> Date of discharge: 05/21/22 <KRISTEL Denny - Last Filed: 05/21/22 10:58> Primary care physician: Unknown Physician <Yuval Cosme MD - Last Filed: 05/20/22 14:17> Consults: 05/09/22 08:58 Addiction Medicine Routine Consulting Provider: Alexia Lozano Reason for consultation: cocaine + fentanyl Consult to Care Team Routine Comment: Reason for consultation: cocaine, fentanyl 05/12/22 09:58 Consult to Infectious Diseases Stat Consulting Provider: Katharine Brewer Reason for consultation: Persistant inflitrate /IVDA Has provider been notified: Yes 05/15/22 14:17 Consult to Cardiology Routine Consulting Provider: Chaparro Little Reason for consultation: aortic valve mass/iv drug use Has provider been notified: No 05/15/22 14:18 Consult to Thoracic Surgery Routine Consulting Provider: Jessa Newton Reason for consultation: rt lower lobe loculated effusion Has provider been notified: No <Yuval Cosme MD - Last Filed: 05/20/22 14:17> Attending physician on discharge: Yahir Gong <KRISTEL Denny - Last Filed: 05/21/22 10:58> Discharging clinician: Clare Bagley <KRISTEL Denny - Last Filed: 05/21/22 10:58> DS: Diagnosis Discharge Diagnosis (1) Pleural effusion: Status: Acute <Yuval Cosme MD - Last Filed: 05/20/22 14:17> (2) Pneumonia: Status: Acute <Yuval Cosme MD - Last Filed: 05/20/22 14:17> (3) Polysubstance abuse: Status: Acute <Yuval Cosme MD - Last Filed: 05/20/22 14:17> (4) Endocarditis, suspected: Status: Acute <Yuval Cosme MD - Last Filed: 05/20/22 14:17> DS: Summary Hospital Course Hospital Course: history of presenting illness Date of Service: 05/09/22 Chief Complaint: cough 31yo M with hx injection heroin + cocaine abuse who uses 2 bundles of heroin daily came in to ED c/o R-sided chest pain and leg pain.? Notes cough and dyspnea and tactile fever for the past few days.? No hx of bloodstream infection or endocarditis.? History of methadone + Suboxone treatment.? Currently c/o chills, nausea, stomach discomfort along with the cough which is non-productive.? Nonsmoker and no hx of asthma. In the ED, he was mildly febrile to 100.8.? Labs showed WBCs of 21.3 with 80% PMNs.? K was 3.1 and AST 72, ALT 48.? CXR showed small R pleural effusion with basilar infiltrate.? He was also noted to have a heart murmur, which is new for him.? He was given vancomycin and piperacillin/tazobactam along with IV KCl. hospital course 31yo M with history of injection heroin + cocaine abuse presenting with cough, dyspnea, and fever and found to have pneumonia with small pleural effusion. 1.Pneumonia with right loculated effusion/compressive atelectasis patient admitted with medical floor treated with IV antibiotics, and echocardiogram showed 0.46 cm density questionable aortic vegetation versus clot case discussed with Dr. Judy Brewer and die repairer trimmer dies Dr. Elias since all 3 sets of blood cultures are negative , and he is hemodynamically stable, with no chest pain, no shortness of breath will hold BRAULIO, will repeat transthoracic echo in 2 weeks to assess aortic density, in regard to loculated effusion patient underwent thoracocentesis 05/15, 8.5 F chest tube placed minimal drainage noted subsequently seen by thoracic surgery underwent chemical decortication with tPA/DNase x 2 with good result repeat imaging study showed minimal right pleural effusion therefore chest tube pulled, patient remains stable with no fevers normal WBC count and right several days tolerating diet with stable oxygenation therefore he is being discharged home today he is recommended to keep occlusive dressing to chest tube site for 2 more days, he finish total 10 day course of antibiotics, he has been recommended to use cough medication as needed, his recommended to continue with ambulation and incentive spirometry. ? 2.Hypokalemia resolved ? 3.Opioid withdrawal/disorder patient followed closely by care team and has been placed on methadone 4. tobacco use disorder has been strongly advised to abstain from smoking patient declined nicotine patch <Yuval Cosme MD - Last Filed: 05/20/22 14:17> Time Spent with Patient Time attestation: Total time spent providing and/or coordinating discharge services: <Yuval Cosme MD - Last Filed: 05/20/22 14:17> Discharge coordination time: Greater than 30 minutes <KRISTEL Denny - Last Filed: 05/21/22 10:58> Quality: Safe Use of Opioids Does Pt have an Active Cancer Diagnosis on the Problem List?: No <KRISTEL Denny - Last Filed: 05/21/22 10:58> Quality: Stroke Does the patient have a stroke diagnosis?: No <KRISTEL Denny - Last Filed: 05/21/22 10:58> Physical Exam Vital Signs: Vital Signs: Last Vital Signs Temp 98.0 F 05/20/22 11:19 Pulse 72 05/20/22 11:19 Resp 18 05/20/22 11:19 BP 120/67 05/20/22 11:19 Pulse Ox 97 05/20/22 11:19 O2 Del Method 05/20/22 11:19 O2 Flow Rate 2 05/15/22 11:52 BMI result Body Mass Index 21.5 <Yuval Cosme MD - Last Filed: 05/20/22 14:17> Const: Other: General awake alert,in no acute distress.? Neck Supple CVS? regular rate rhythm, systolic murmur Respiratory lungs diminished breath sounds right base,no respiratory distress, no wheeze, no rhonchi. Gastrointestinal abdomen soft, nontender, bowel sounds audible, no guarding , no rigidity. Extremities no edema. Neuro nonfocal , speech clear. Psych appropriate affect <Yuval Cosme MD - Last Filed: 05/20/22 14:17> DS: Data Data Completed and Pending Pending studies at discharge: Pending at discharge 05/15/22 13:21 Cytology [PTH] Routine <Yuval Cosme MD - Last Filed: 05/20/22 14:17> Labs on day of discharge: Preliminary micro results at discharge 05/18/22 10:07 Blood Culture - Preliminary Blood - Venous No growth after 48 hours. 05/18/22 10:07 Blood Culture - Preliminary Blood - Venous No growth after 48 hours. 05/15/22 11:00 Anaerobic Culture - Preliminary Thoracentesis Fluid No growth to date. <Yuval Cosme MD - Last Filed: 05/20/22 14:17> Discharge Plan Discharge Patient Disposition: Home, Self-Care <Yuval Cosme MD - Last Filed: 05/20/22 14:17> Discharge Diagnosis: pneumonia/right loculated pleural effusion hypokalemia opioid disorder/withdrawal aortic valve mass <Yuval Cosme MD - Last Filed: 05/20/22 14:17> pneumonia/right loculated pleural effusion hypokalemia opioid disorder/withdrawal aortic valve mass <KRISTEL Denny - Last Filed: 05/21/22 10:58> Referrals: Physician,Unknown J [Primary Care Provider] - 1 Week <Yuval Cosme MD - Last Filed: 05/20/22 14:17> Discharge Medications: New dextromethorphan-guaifenesin 10-100 mg/5 mL Syrup 10 ml PO Q6H PRN (Reason: cough) Qty: 237 0RF <Yuval Cosme MD - Last Filed: 05/20/22 14:17> Discharge Orders: Discharge Order (Routine); Ordered 05/21/22 Ordered By: Clare Bagley <Yuval Cosme MD - Last Filed: 05/20/22 14:17> Diet: Advance to usual diet <Yuval Cosme MD - Last Filed: 05/20/22 14:17> Advance to usual diet <KRISTEL Denny - Last Filed: 05/21/22 10:58> Activity on Discharge: As tolerated <Yuval Cosme MD - Last Filed: 05/20/22 14:17> As tolerated <KRISTEL Denny - Last Filed: 05/21/22 10:58> Stand Alone Forms: Patient Portal Discharge page <Yuval Cosme MD - Last Filed: 05/20/22 14:17> Care Plan Goals: loculated right pleural effusion keep occlusive dressing to right upper back for 2 days then remove it and leave it open to air, use Tylenol as needed for pain strongly recommend to abstain from smoking and illicit drug use follow-up with cardiology in 2 weeks for repeat echocardiogram related to aortic valve mass you finished course of antibiotic <Yuval Cosme MD - Last Filed: 05/20/22 14:17> Health Concerns: strongly recommend to abstain from smoking and abstain from illicit drug use <Yuval Cosme MD - Last Filed: 05/20/22 14:17> Plan of Treatment: follow-up with Dr. Elias from Cardiology at [facility] in 2 weeks for echocardiogram to follow-up on aortic valve abnormality, follow up with primary care physician in 1-2 weeks <Yuval Cosme MD - Last Filed: 05/20/22 14:17> Assessment: as per discharge summary <Yuval Cosme MD - Last Filed: 05/20/22 14:17>
--- NOTE | 2022-05-20 14:59 | MHC.CM.PN ---
CM MET W/PT TO DISCUSS DISPO, PT HAD PREVIOUSLY REPORTED HE IS HOMELESS, PT REPORTS HE IS NOT INTERESTED IN [facility] OR [facility], PT PROVIDED W/NUMBER FOR [employer] AND GIVEN DIRECTIONS. PT ALSO REPORTED HE CALLED HIS BROTHER AND REPORTS HIS BROTHER SAID HE COULD GO THERE AND THEY COULD HELP HIM FIGURE IT OUT . PT WILL ALSO NEED FOLLOW UP W/CARDIOLOGY IN 2 WKS AND HAS NO PCP, CM PT HAS [facility] W[facility], CM DISCUSSED PCP OPTIONS W/PT WHO REPORTS HE HAD PCP IN [place] HOWEVER HAS NOT BEEN SEEN IN A FEW YRS, PT REPORTS HE WAS LIVING W/HIS MOTHER IN [place] HOWEVER SHE NOW LIVES IN [place] W/HIS BROTHER. PT REPORTS HE WOULD LIKE CM TO ASSIST W/MAKING APPT AND HAD DISCUSSED USING [facility] VS [facility] HE PLANS ON GOING [facility] FOR [facility], PT AWARE HE WOULD NEED TO CHANGE HIS INSURANCE TO [facility] AND PT REPORTED HE WOULD LIKE TO SPEAK W/HIS FAMILY AND FOLLOW UP W/CM TOMORROW. CM WILL CONT TO FOLLOW D/C NEEDS
--- NOTE | 2022-05-20 15:46 | P.PNIM_ITS ---
Subjective Subjective Date of Service: 05/20/22 Interval History: feeling better this morning continue to nonproductive cough, no fevers no chills no other acute issues overnight chest tube removed by thoracic surgery this morning. 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 Neck? Suppl e , left IJ cathet er CVS? regular r ate rhythm, systol ic murmur Respirat ory lungs diminish ed breath sounds r ight base,no respi ratory distress, n o wheeze, no rhonc hi. Gastrointestin al abdomen soft, n ontender, bowel so unds audible, no g uarding , no rigid ity. Extremities n o edema. Neuro non focal , speech vivian ar. Psych appropri ate affect Objective Data Active Medications Acetaminophen (Acetaminophen 325 Mg Tablet) 650 mg PO Q6H PRN PRN Reason: Pain, Mild (Pain Scale 1-3) Last Admin: 05/20/22 10:22 Dose: 650 mg Documented By: LATONYA Clonidine HCl (Clonidine Hcl 0.1 Mg Tablet) 0.1 mg PO TID PRN; Protocol PRN Reason: mariselacristopher Last Admin: 05/14/22 04:43 Dose: 0.1 mg Documented By: MORRINChaya Enoxaparin Sodium (Enoxaparin Sodium 40 Mg/0.4 Ml Syringe) 40 mg SUBCUT Q24H [facility] Last Admin: 05/20/22 10:08 Dose: 40 mg Documented By: LATONYA Guaifenesin/Dextromethorphan (Guaifenesin Dm 200/20/10 Ml 10 Ml Syrup) 10 ml PO Q6H [facility] Last Admin: 05/20/22 10:08 Dose: 10 ml Documented By: LATONYA Ceftriaxone Sodium 2 gm/ (Sodium Chloride) 50 mls @ 100 mls/hr IV Q24H [facility] Last Infusion: 05/20/22 14:26 Dose: 0 mls/hr Documented By: MAKEDA Methadone HCl (Methadone Hcl 20 Mg/2 Ml Oral.Conc) 60 mg PO DAILY [facility] Last Admin: 05/20/22 10:09 Dose: 60 mg Documented By: LATONYA Ondansetron HCl (Ondansetron Hcl 4 Mg/2 Ml Vial) 4 mg IVPUSH Q8H PRN PRN Reason: Nausea and Vomiting Sodium Chloride (0.9 % Sodium Chloride Flush 3 Ml Syringe) 3 ml IVFLUSH QSHIFT [facility] Last Admin: 05/20/22 10:08 Dose: 3 ml Documented By: LATONYA Labs CBC & Chem 7: 05/17/22 05:46 05/17/22 05:46 Microbiology Microbiology Results: Microbiology 05/18/22 10:07 Blood Culture - Preliminary Blood - Venous No growth after 48 hours. 05/18/22 10:07 Blood Culture - Preliminary Blood - Venous No growth after 48 hours. 05/15/22 11:00 Gram Stain - Final Thoracentesis Fluid Anaerobic Culture - Preliminary No growth to date. Body Fluid Culture - Final No growth after 2 days Assessment and Plan (1) Aortic valve mass: Status: Acute (2) Pneumonia: Status: Acute (3) Opioid use disorder: Status: Acute (4) Pleural effusion: Status: Acute Plan 31yo M with history of injection heroin + cocaine abuse presenting with cough, dyspnea, and fever and found to have pneumonia with small pleural effusion. 1.Pneumonia with right loculated effusion/compressive atelectasis? No fevers , WBC normalized, feels better, denies pain, no shortness of breath on iv Ceftriaxone/doxycycline day 11 2D echo showed 0.46 cm density questionable aortic vegetation versus clot case discussed with Dr. Judy Brewer and water safety teacher Dr. Elias since patient blood cultures are negative , and he is hemodynamically stable ?? with no chest pain, no shortness of breath will hold BRAULIO, will repeat transthoracic echo in 2 weeks to assess aortic density, blood cultures negative x3 underwent thoracocentesis 05/15 8.5 F chest tube placed minimal drainage overnight, patient seen by thoracic surgery underwent chemical decortication with tPA/DNase x 2 (over weekend) repeat chest x-ray showed minimal right effusion therefore chest tube removed today patient cleared by thoracic surgery for discharge recommend to continue occ lusive dressing with chest tube site for 48 hours ? Continue cough medication, encourage incentive spirometry and out of bed to chair will remove IJ catheter prior to discharge ? 2.Hypokalemia resolved ? 3.Opioid withdrawal/disorder patient followed closely by care team and has been placed on methadone, recommend outpatient follow-up at methadone clinic 4.tobacco use disorder has been strongly advised to abstain from smoking patient declined nicotine patch patient need continued inpatient hospitalization due to shortness of breath with activity and persistent cough health and social care teacher arranging for safe discharge since patient is homeless Quality Stroke Does the patient have a stroke diagnosis?: No VTE Prior VTE?: No VTE Risk Level:: Medical - moderate - high VTE Device Contraindication: N/A - Device Ordered VTE Drug Contraindication: N/A - Med Ordered
--- NOTE | 2022-05-20 16:45 | PC.NURSE ---
TLC intact and patent,drsg intact,no crepitus
[2022-05-21 04:00] VITALS: BP 112/58; PULSE 65; RESP 18; TEMP 36.5; O2SAT 98
[2022-05-21 07:47] VITALS: BP 121/72; PULSE 70; RESP 20; TEMP 36.4; O2SAT 99
[2022-05-21] MEDS: 0.9 % Sodium Chloride Flush 3 ML SYRINGE IVFLUSH (08:47)
[2022-05-21] MEDS: cefTRIAXone sodium 2 GM in 0.9 % Sodium Chloride 50 ML IV (08:47)
[2022-05-21] MEDS: methADONE HCl 20 MG/2 ML ORAL.CONC 60 MG PO (08:47)
[2022-05-21 11:23] VITALS: BP 108/55; PULSE 71; RESP 18; TEMP 36.3; O2SAT 96
[2022-05-21] MEDS: Naloxone HCl Nasal TAKE HOME 4 MG SPRAY NOSTRILALT (14:27)
--- NOTE | 2022-05-21 15:29 | MHC.CM.PN ---
PT FEELING BETTER TODAY AND MEDICALLY CLEARED FOR D/C, PT OFFERED ASSISTANCE W/TRNASPORT HOWEVER PT INSISTS ON TAKING THE BUS, PT REPORTS HE WILL GO T HIS BROTHERS HOME IN [place] AND HE WILL HELP HIM FIGURE IT OUT , PT GIVEN LAST DOSE LETTER AND WRITTEN DIRECTIONS/ADDRESS TO PRESENT TO [facility] TOMORROW AT 0700. PT ALSO GIVEN HAND WRITTEN DIRECTIONS AND CONTACT NUMBERS TO CHANGE HIS PCP W/HIS MEDICAID PCC PROGRAM. PT WAS OFFERED [facility] [place] OR CORRECTION AGAIN AND DECLINED.
== END 2022-05-21 15:01 | disposition home or self-care (01) | DRG 720 ==
LOC: HO.ED 04:17 → HO.EDOVER 11:59 → HO.S3 05-10 15:19
PROVIDERS: Hospitalist; Internal Medicine; Physician Assistant; Radiology Diagnostic Radiology; Admitting Provider Family Medicine; Emergency Provider Emergency Medicine; PCP Physician Assistant Medical; Visit Provider Physician Assistant Medical
DX: A41.9 Sepsis, unspecified organism (principal); J91.8 Pleural effusion in other conditions classified elsewhere; I38 Endocarditis, valve unspecified; J18.9 Pneumonia, unspecified organism; E88.09 Other disorders of plasma-protein metabolism, not elsewhere classified; J98.11 Atelectasis; F14.10 Cocaine abuse, uncomplicated; B19.20 Unspecified viral hepatitis C without hepatic coma; F11.23 Opioid dependence with withdrawal; E87.6 Hypokalemia; F19.90 Other psychoactive substance use, unspecified, uncomplicated; F17.210 Nicotine dependence, cigarettes, uncomplicated; Z20.822 Contact with and (suspected) exposure to COVID-19; Z71.6 Tobacco abuse counseling; Z59.02 Unsheltered homelessness
CPT/HCPCS: 32551; 36415; 71045; 71250; 80048; 80053; 80076; 80202; 80307; 81003; 82077; 82565; 83605; 83735; 84145; 85025; 85027; 85610; 85730; 86704; 86706; 86803; 86850; 86900; 86901; 87040; 87070; 87073; 87205; 87340; 87389; 87635; 87640; 87641; 88112; 88305; 89051; 93306; 96361; 96365; 96366; 96367; 96375; 99152; 99153; 99285; C1729; J0696; J1650; J1885; J2543; J2997; J3370

== ENCOUNTER 2022-12-30 03:48 | Emergency (ER) | payer MEDICAID, SELFPAY ==
--- NOTE | ~2022-12-30 | XR_ITS ---
EXAMINATION: XR ANKLE, LEFT CLINICAL INFORMATION: Left-sided medial ankle pain COMPARISON: None available. TECHNIQUE: AP, lateral, and mortise views of the left ankle. FINDINGS: The bones and soft tissues are normal. No fracture. Alignment is anatomic. Joint spaces are maintained. No joint effusion. XR/XR ankle LT min 3V IMPRESSION: Normal left ankle.
[2022-12-30 03:57] VITALS: BP 104/73; PULSE 98; RESP 18; TEMP 36.5; O2SAT 95; BMI 28.7
--- NOTE | 2022-12-30 04:09 | ED_ITS ---
HPI - Overdose General Chief Complaint: Overdose Stated Complaint: overdose Time Seen by Provider: 12/30/22 04:09 Source: patient and EMS Mode of arrival: EMS Limitations: no limitations History of Present Illness HPI Narrative: Patient was sober for 5 months use today 1 bag of heroin found by PD 8 mg of intranasal Narcan given patient comes here with increased vomiting. No airway compromise no significant abdominal pain speaking full sentences Related Data Previous Rx's Medication Instructions Recorded dextromethorphan-guaifenesin 10 10 ml PO Q6H PRN cough #237 mL 05/20/22 mg-100 mg/5 mL oral syrup Allergies Allergy/AdvReac Type Severity Reaction Status Date / Time No Known Allergies Allergy Verified 05/09/22 01:10 [No Known Allergies*] Review of Systems Review of Systems: Yes all other systems are reviewed and are negative [facility] Past Medical History Medical History Polysubstance abuse Surgical History No history of previous surgery Social History Social History Household Members: None Housing: Homeless Do you presently have visiting nurse or other home services: No Alcohol intake: unknown Patient Tobacco Use Status: Current someday Tobacco user Smoked in Last 30 Days: Yes Use of substances other than those prescribed or required for medical reasons: Yes Substance Use Type: Crack/Cocaine and Opiates Advance Directives: No Advance Directives Information Provided: Yes service: No Current occupational status: unemployed Physical Exam Vital Signs: Vital Signs: Last Vital Signs Temp 97.7 F 12/30/22 05:37 Pulse 94 12/30/22 05:37 Resp 16 12/30/22 05:37 BP 119/75 12/30/22 05:37 Pulse Ox 92 12/30/22 05:37 O2 Del Method Room Air 12/30/22 05:37 BMI result Body Mass Index 28.7 Appearance: Alert. Oriented X3. No acute distress. Anxious actively vomiting Eyes: PERRLA, no pallor icterus ENT: Pharynx normal. Oral Mucosa moist Neck: Normal inspection. Neck supple. CVS: Normal heart rate and rhythm. Pulses normal. Respiratory: No respiratory distress. Equal air entry bilateral, no wheezing/rales/rhonchi Abdomen: Soft and nontender. Bowel sounds are present, no mass palpable, no CVA tenderness Skin: Skin warm and dry. Normal skin color. Normal skin turgor. Extremities: No lower extremity edema. No calf tenderness Neuro: Oriented X 3. No motor deficit. No sensory deficit.No cerebellar signs , cranial nerves II-XII intact Medications Administered Discontinued Medications Generic Name Dose Route Start Last Admin Trade Name Freq PRN Reason Stop Dose Admin Lorazepam 2 mg 12/30/22 04:16 12/30/22 05:48 Lorazepam 2 Mg/Ml Vial IM 12/30/22 04:17 2 mg ONCE ONE Administration Ondansetron HCl 4 mg 12/30/22 04:09 12/30/22 05:17 Ondansetron Odt 4 Mg Tab.Rapdis TRANSLINGU 12/30/22 04:10 4 mg ONCE ONE Administration Discharge Plan Discharge Clinical Impression: Opioid use disorder Patient Disposition: Home, Self-Care Instructions: Narcotic Use Disorder (ED) Additional Instructions: Stop using opiates Follow detox Prescriptions: No Action dextromethorphan-guaifenesin 10-100 mg/5 mL Syrup 10 ml PO Q6H PRN (Reason: cough) Qty: 237 0RF
--- NOTE | 2022-12-30 04:18 | MHC.EDTECH ---
PT 2x assisted with changeover. [facility]. PT given call mathis light dimmed and urinal in reach
--- NOTE | 2022-12-30 04:31 | PC.NURSE ---
pt vomiting in room. requesting water but immediately vomits . will attempt to administer IM ativan per proivider orders since pt cannot tolerate po.
[2022-12-30] MEDS: Ondansetron ODT 4 MG TAB.RAPDIS TRANSLINGU (05:17)
--- NOTE | 2022-12-30 05:18 | PC.NURSE ---
vomiting improved. po zofran sublingual administered. will see if patient can keep it down
[2022-12-30 05:37] VITALS: BP 119/75; PULSE 94; RESP 16; TEMP 36.5; O2SAT 92
--- NOTE | 2022-12-30 05:37 | MHC.EDTECH ---
Pt head of bed elevated at 90 degrees. Pt call mathis in reach. Pt leland bag replaced.
[2022-12-30] MEDS: LORazepam 2 MG/ML VIAL IM (05:48)
--- NOTE | 2022-12-30 05:50 | PC.NURSE ---
pt continues to vomit, unable to tolerate po meds or fluids. IM ativan administered per provider orders . will CTM
[2022-12-30] MEDS: Magnesium Hydrox/Alum Hydrox 30 ML ORAL.SUSP PO ×2 (09:29→11:49)
--- NOTE | 2022-12-30 09:33 | MHC.RECOVRN ---
This marketing writer attempted to meet w/ patient, patient given Malox for stomach upset, patient reports IV one bag heroin prior to OD, patient states not on Suboxone/MTD. Patient was falling asleep during ALEXI evaluation, unable to answer questions. T/W to return when patient more alert.
--- NOTE | 2022-12-30 09:34 | PC.NURSE ---
sleeping and easily woken, c/o heartburn, medicated as ordered w kalyani, transformation coach in w pt, pt reports he was kicked out of program yesterday and is homeless, skin wpd, nad, quickly back to sleep
--- NOTE | 2022-12-30 11:14 | HO.SUDE ---
This account underwriter met w/ patient, patient needed to be redirected during ALEXI evaluation, falling asleep and trailing off. Patient reports has been at [facility], [facility] in [place] since August. Patient states relapsed yesterday 12/29/22, reports using a few bags IV heroin in the a.m and later in the day using 1 bag heroin IV, prior to overdose. Patient reports chest hurts and left foot pain. Patient reports no hx of overdoses, patient states feels fearful as this was first overdose. Patient reports in the past had been stable on MTD/Suboxone. Patient reports hx of recovery programs. Patient states can not return to [facility] in [place], patient states is homeless. Patient states not interested in MAT at this time as promised my Mom that I wouldn't put anything in my body . This account underwriter reviewed harm reduction, recovery resources. Patient declined information on medications for opiate use. T/W spoke w/ ED RN in regard to patient complaint of left foot pain and chest pain.
[2022-12-30] MEDS: Lidocaine HCl Viscous 2 % 15 ML SOLUTION 10 ML PO (11:49)
[2022-12-30] MEDS: PHENobarb/Hyoscy/Atropine/Scop 10 ML ELIXIR PO (11:50)
--- NOTE | 2022-12-30 11:56 | PC.NURSE ---
pt had one time relapse on heroin, does not qualify for detox programs, Em light armored reconnaissance officer to bedside mult times to help pt w recovery and homlessness, resources given, medicated for continued heartburn , md harry aburto done, l ankle xrayed as pt reported pain but unsure if he injured it, drinking a tea, steady gait to decon for clothes
[2022-12-30 11:58] VITALS: BP 114/96; PULSE 101; RESP 14; O2SAT 97
--- NOTE | 2022-12-30 12:01 | MHC.RECOVRN ---
Harm reduction, recovery resources, local shelters reviewed at bedside, encouraged to f/u at [facility] [place], patient agreeable to review information.
== END 2022-12-30 12:16 | disposition home or self-care (01) ==
PROVIDERS: Emergency Provider Emergency Medicine Emergency Medical Services
DX: F11.90 Opioid use, unspecified, uncomplicated (principal); F19.10 Other psychoactive substance abuse, uncomplicated; F41.9 Anxiety disorder, unspecified; M25.572 Pain in left ankle and joints of left foot; K29.70 Gastritis, unspecified, without bleeding; F17.200 Nicotine dependence, unspecified, uncomplicated
CPT/HCPCS: 73610; 96372; 99284; 99285; J2060

== ENCOUNTER 2025-05-08 02:42 | Emergency (ER) | payer MEDICAID, SELFPAY ==
[2025-05-08] VITALS (7 sets, daily range): BP systolic 114–152; BP diastolic 65–79; PULSE 64–107; RESP 16–22; TEMP 36.7–36.9; O2SAT 96–100; BMI 29.8
--- NOTE | 2025-05-08 02:59 | MHC.EDTECH ---
pt changed over upon arrival with security present. small lacerations to right knuckles cleaned upon arrival. pt placed on classroom monitor.
--- NOTE | 2025-05-08 03:02 | MHC.EDTECH ---
pt belongings placed in [place].
--- NOTE | 2025-05-08 03:03 | PC.NURSE ---
PT BIB EMS after reportedly being found unresponsive on the ground by PD. Pt given 4mg intranasal narcan. Pt became responsive, vomited in ambulance. Pt denies any knowledge of what happened, endorses dope and coke use. Pt cleaned up, security called for change control manager. Pt alert and oriented to persn, place, and time, requesting water, given ice chips and explained process at this time and due to vomiting he could have ice chips. Pt declined any addiction services. Pt also has bloody abrasion to R-hand, denies knowledge of how it happened, denies pain or injuries at this time. Just want water . call mathis in reach, plan of care ongoing.
--- NOTE | 2025-05-08 07:02 | ED_ITS ---
HPI - Overdose General Chief Complaint: Overdose Stated Complaint: OVERDOSE Time Seen by Provider: 05/08/25 03:51 Source: EMS Mode of arrival: EMS Limitations: no limitations and altered mental status History of Present Illness ED Provider: Dr. Malu Martell HPI Narrative: 34-year-old male with history of substance use disorder presenting after an apparent opioid overdose. Evidently the police found the patient unresponsive on the side of the road. Narcan was given intranasally in the patient became alert. Does not endorse substance use aside from cocaine. Vomited once prior to arrival. No further emesis in the emergency department. Patient denies intentional overdose. He is refusing to answer what type of drugs he has been using today. No evidence of head trauma. Patient refusing further care at this time. Related Data Previous Rx's ?Medication ?Instructions ?Recorded dextromethorphan-guaifenesin 10 10 ml PO Q6H PRN cough #237 mL 05/20/22 mg-100 mg/5 mL oral syrup omeprazole 20 mg capsule,delayed 20 mg PO DAILY 30 day s #30 caps 12/30/22 release Allergies Allergy/AdvReac Type Severity Reaction Status Date / Time No Known Allergies (No Known Allergy Verified 05/08/25 02:58 Allergies*) Review of Systems Review of Systems: Yes Unobtainable due to mental status COUNTS INCLUDE 234 BEDS AT THE [facility] Past Medical History COUNTS INCLUDE 234 BEDS AT THE [facility] Narrative: Polysubstance use history Source: old records reviewed Medical History Polysubstance abuse Surgical History No history of previous surgery Social History Social History Household Members: None Housing: Homeless Do you presently have visiting nurse or other home services: No Alcohol intake: unknown Comment: refused bed alarm Patient Tobacco Use Status: Current someday Tobacco user Smoked in Last 30 Days: Yes Use of substances other than those prescribed or required for medical reasons: Yes Substance Use Type: Crack/Cocaine Advance Directives: No Advance Directives Information Provided: Yes service: No Current occupational status: unemployed Physical Exam Exam: Exam: GENERAL: Appears intoxicated, unkempt, GCS 13, eyes open to voice, slurred speech, no acute distress. SKIN: Normal skin color for ethnicity, warm, dry, no rashes noted. HEENT: Normocephalic, atraumatic, no stridor, posterior oropharynx nonerythematous, dentition intact, EOMI, pupils are pinpoint bilaterally, reactive to light. NECK: Soft, supple, no step-offs, no deformities, no lymphadenopathy. CHEST: Heart regular rhythm, no murmurs, symmetric chest rise and fall. PULMONARY: Clear to auscultation bilaterally, diminished at the bases, no labored breathing, no wheezes/rhales/rhonchi. ABDOMINAL: Soft, nondistended, positive bowel sounds in all quadrants. : Deferred. MUSCULOSKELETAL: Normal tone, full range of motion, no deformities, no peripheral edema. NEURO: GCS 13, eyes open to voice, slightly slurred speech, CN II through XII intact, equal strength and sensation bilateral upper and lower extremities, no focal neurologic deficits. PSYCHIATRIC: Flat affect, poor eye contact. Vital Signs: Vital Signs: Last Vital Signs Temp 98.1 F 05/08/25 23:25 Pulse 68 05/08/25 23:25 Resp 17 05/08/25 23:25 BP 123/79 05/08/25 23:25 Pulse Ox 98 05/08/25 23:25 O2 Del Method Room Air 05/08/25 23:25 BMI result Body Mass Index 29.8 Course Reevaluation(s) Reevaluation #1: Patient is waiting for crisis team for possible detox remained stable vital sign as 05:00 stable Time: 09:17 Reevaluation #2: Drug screen noted fentanyl cocaine in the urine waiting for care team dispo Time: 13:08 Medications Administered Discontinued Medications Generic Name Dose Route Start Last Admin Trade Name Freq PRN Reason Stop Dose Admin Naloxone HCl 8 mg 05/08/25 13:07 05/08/25 23:18 Naloxone Hcl Nasal Take Home 4 Mg [place] NOSTRILALT 05/08/25 13:08 8 mg ONCE ONE Administration Medical Decision Making Medical Decision Making MDM Narrative: Patient presents with a chief complaint of possible overdose. Differential diagnosis includes life-threatening toxidrome such as anticholinergic syndrome, serotonin syndrome, sympathomimetic, opioid induced, among others. Also includes co-ingestions, acidosis, intracranial process such as mass, hemorrhage, or CVA. Patient evaluated to determine if there is adequate GCS to maintain their airway as well as for hemodynamic stability. Placed on lab support tech for blood pressure, heart rhythm and oxygen levels. Frequent reevaluations to ensure no worsening neurologic or hemodynamic instability. 7:05 AM 05/08/2025 (Dr. Malu Martell, D.O.) after initially refusing care, patient is now requesting assistance with drug addiction and homelessness. We will add on recovery consults. Vital signs remained stable. Signing out to oncoming provider pending recovery consult and final disposition. Differential Diagnosis Differential Diagnoses: The differential diagnosis associated with the presentation includes (As above) Admission/Observation Consideration of admission/observation: Escalation of care including admission/observation considered Lab Data Labs: Lab Results 05/08/25 Range/Units 10:20 Urine Opiates Screen POSITIVE H (Not Detect) Ur Buprenorphine Scrn Positive H (Not Detect) ng/mL Ur Oxycodone Screen Not Detected (Not Detect) ng/mL Urine Methadone Screen Not Detected (Not Detect) ng/mL Urine Fentanyl Screen POSITIVE H (Not Detect) Ur Barbiturates Screen Not Detected (Not Detect) Ur Phencyclidine Scrn Not Detected (Not Detect) Ur Amphetamines Screen Not Detected (Not Detect) U Benzodiazepines Scrn Not Detected (Not Detect) Urine Cocaine Screen POSITIVE H (Not Detect) U Marijuana (THC) Screen Not Detected (Not Detect) Discharge Plan Discharge Clinical Impression: Drug overdose Patient Disposition: Home, Self-Care Instructions: Adult Overdose (ED) Additional Instructions: You were evaluated observed after drug overdose. We have offered additional resources and our care team addiction team has discussed with you potential outpatient or alternative detox or rehab resources for you. Prescriptions: No Action dextromethorphan-guaifenesin 10-100 mg/5 mL Syrup 10 ml PO Q6H PRN (Reason: cough) Qty: 237 0RF omeprazole 20 mg capsule,delayed release(DR/EC) 20 mg PO DAILY 30 Days Qty: 30 0RF Referrals: [facility] [Provider Group] Interventions: ED Discharge Assessment Last Done: 05/08/25 23:25 Discharge Date/Time: 05/08/25 23:25 Print Language: Lao
--- NOTE | 2025-05-08 07:07 | PC.NURSE ---
PT A&O X4 VSS NAD No complaints- Pt asking for bkfst Provider OK.
--- NOTE | 2025-05-08 09:39 | MHC.CARE ---
Pt will be a detox bedsearch
--- OUTSIDE RECORDS SUMMARY | 2025-05-08 09:43 | XMS_ITS | Patient Health Record ---
Author Organization [facility] Address [address], [place] [id number] Care Team Providers Care Gas Operator Name Role Phone Kody Wu Primary Care Provider Reason For Referral No Information Medications Medication SIG (Take, Route, Frequency, Duration) Notes Start Date End Date Status mirtazapine 7.5 mg 1 tab orally once a day (at bedtime) for 30 days pls deliver to [facility] Active hydrOXYzine hydrochloride 50 mg 1 tab(s) orally qd for 30 days pls deliver to [facility] Active mirtazapine 7.5 mg 1 tab orally once a day (at bedtime) Active Immunizations Vaccine Route Administration Date Status Comme nts Pidgon-MetaStat Covid-19 [place] Administration - Third Dose (Single Dose 30 mcg/0.3 mL) Unknown 12/01/2022 Administered Problems Problem Type SNOMED Code ICD Code Onset Dates Problem Status W/U Status Risk Notes Problem Chronic hepatitis C (151937394) Chronic viral hepatitis C (B18.2) Active confirmed Problem Opioid dependence in remission (302593024) Opioid dependence, in remission (F11.21) Active confirmed Problem Moderate recurrent major depression (66925113) Major depressive disorder, recurrent, moderate (F33.1) Active confirmed Problem Body mass index 25-29 - overweight (099370095) Body mass index [BMI] 28.0-28.9, adult (Z68.28) Active confirmed Problem Sheltered homelessness (155263376672736 ) Sheltered homelessness (Z59.01) Active confirmed Plan Of Treatment Pending Test Test Name Order Date CBC 12/01/2022 CHLAMYDIA / GC DNA W RFLX 12/01/2022 COMPREHENSIVE METABOLIC PANEL 12/01/2022 LIVER FIBROSIS PANEL 12/01/2022 GLYCOHEMOGLOBIN PROFILE 12/01/2022 HCV VIRAL LOAD 12/01/2022 HEPATITIS A B PROFILE 12/01/2022 HIV 1 AND 2 ANTIBODY SCREEN 12/01/2022 LIPID PROFILE 12/01/2022 MEASLES PROFILE 12/01/2022 PT/INR 12/01/2022 TREPONEMAL AB 12/01/2022 TSH CASCADE 12/01/2022 QUANTIFERON(R)-TB GOLD PLUS, 1 TUBE 03/2023 Insurance Providers Payer Name Payer Address Payer Phone Subscriber Number Group Number Insured Name Patient Relationship to Insured Coverage Start Date Coverage End Date [place] Medicaid PCC [address] [place], [place] [id number] Matthew Jett Self - patient is the insured 3
--- OUTSIDE RECORDS SUMMARY | 2025-05-08 09:43 | XMS_ITS | Clinical Summary ---
Author Organization [facility] ity Address [address] [place] [address] Care Team Providers Care Transportation Department Head Name Role Phone Unavailable Primary Care Provider Unavailabl e Social History Tobacco Use Types Packs/Day Years Used Date Smoking Tobacco: Never Assessed Sex and Gender Information Value Date Recorded Sex Assigned at Not on file Legal Sex Male 3:41 PM EST Gender Identity Not on file Sexual Orientation Not on file Plan of Treatment Health Maintenance Due Date Last Done Comments DTaP,Tdap,and Td Vaccines (1 - Tdap) 2010 Hepatitis B Vaccines (1 of 3 - 19+ 3-dose series) 2010 HIV Screening 08/26/2022 Hepatitis C Screening 08/26/2022 Social Influencers of Health Screening 08/26/2022 COVID-19 Vaccine (1 - 2023-2 5 season) 2024 Depression Screening 09/27/2024 Influenza Vaccine (#1) 2025 HIB Vaccines Aged Out No longer eligi ble based on patient's age to complete this topic HPV Vaccines Aged Out No longer eligi ble based on patient's age to complete this topic Hepatitis A Vaccines Aged Out No long er eligible based on patient's age to complete this topic IPV Vaccines Aged Out No longer eligi ble based on patient's age to complete this topic MMR Vaccines Aged Out No longer eligi ble based on patient's age to complete this topic Meningococcal ACWY Vaccine Aged Out N o longer eligible based on patient's age to complete this topic Meningococcal B Vaccine Aged Out No l onger eligible based on patient's age to complete this topic Pneumococcal Vaccine: Pediat rics (0 to 5 Years) and At-Risk Patients (6 to 49 Years) Aged Out No longer eligible b ased on patient's age to complete this topic RSV Immunization Patients Un alisia 20 months Aged Out No longer eligible b ased on patient's age to complete this topic Varicella Vaccines Aged Out No longer eligible based on patient's age to complete this topic
--- OUTSIDE RECORDS SUMMARY | 2025-05-08 09:43 | XMS_ITS | Encounter Summary ---
Author Organization [facility] Address [address] [place] [address] Phone Care Team Providers Care Radio Division Captain Name Role Phone Pollo Gomez DO Primary Care Provider [phone] Unknown, Unknown MD Unavailable Unavailable Pollo Gomez DO Unavailable Pcp, Unknown Primary Care Provider UnavailRaymundo Mg MD Unavailable [phone] Encounter Details Date Type Department Care Team (Late st Contact Info) Description 09/08/2017 Transcribe Orders [facility] Specimen Processing [address] [place] [address] Pollo Gomez DO [address] [place] [address] [email or web address] Examination (Primary Dx) Social History Tobacco Use Types Packs/Day Years Used Date Smoking Tobacco: Never Assessed Sex and Gender Information Value Date Recorded Sex Assigned at Male 10/04/2017 9:38 AM EST Legal Sex Male 8:17 AM EST Gender Identity Male 10/04/2017 9:38 AM EST Sexual Orientation Straight 10/04/2017 9: 38 AM EST documented as of this encounter Plan of Treatment Not on file documented as of this encounter Visit Diagnoses Diagnosis Examination- Primary Unspecified examination documented in this encounter Care Teams Radio Division Captain Relationship Specialty Start Date End Date Pollo Gomez DO [email or web address] PCP - General Internal Medicine 09/08/17 10/23/19 Pcp, Unknown PCP - General 10/24/19 Unknown, Unknown, 09/08/17 Pollo Gomez DO [address] [place] [id number] [email or web address] Insurance Assigned Provider 05/28/18 01/03/20 Raymundo Phan MD [address] [place] [id number] [email or web address] Insurance Assigned Provider 01/03/20 11/30/20 documented as of this encounter Additional Source Comments The information contained in this document represents components of the legal health record. It is not the complete legal health record.[facility]
[2025-05-08 10:45] LABS: Cannabinoid Screen Urine Not Detected (Not Detect)
--- NOTE | 2025-05-08 20:52 | MHC.CARE ---
Pt declined detox bedsearch and is requesting discharge. Provider aware.
[2025-05-08] MEDS: Naloxone HCl Nasal TAKE HOME 4 MG SPRAY 8 MG NOSTRILALT (23:18)
--- NOTE | 2025-05-08 23:18 | PC.NURSE ---
pt provided w/ personal belongings from [employer]. care team is arranging transportation via [employer].
== END 2025-05-08 23:25 | disposition home or self-care (01) ==
PROVIDERS: Emergency Medicine; Emergency Provider Emergency Medicine
DX: T40.1X1A Poisoning by heroin, accidental (unintentional), initial encounter (principal); R40.4 Transient alteration of awareness; F19.10 Other psychoactive substance abuse, uncomplicated; Y92.410 Unspecified street and highway as the place of occurrence of the external cause
CPT/HCPCS: 80307; 99285; S9485